=== PATIENT | female | born 1980 | race Caucasian/White ===

== ENCOUNTER 2017-07-10 11:52 | Emergency (ER) | payer SELFPAY ==
[~2017-07-10] VITALS: Ht 165.1 cm; Wt 113.4 kg
--- NOTE | 2017-07-10 12:33 | ED General ---
General Chief Complaint: General Problems/Pain Stated Complaint: RETAINING FLUID Source of Information: Patient Exam Limitations: No Limitations History of Present Illness Time Seen by Provider: 12:31 Initial Comments To ER with reports of "retaining fluid" and diffuse body pain. She's noticed this for the past 2-3 days. She recently moved here from [place] and is residing [facility]. She denies any known cause. Timing/Duration: 2-3 Days Severity: Moderate Allergies and Home Medications Allergies Coded Allergies: No Known Drug Allergies (Unverified , 07/10/17) Home Medications Hydrochlorothiazide 25 Mg Tablet, 25 MG PO DAILY, #25 Prescribed by: AVEL CABRERA on 07/10/17 1348 Constitutional: see HPI EENTM: see HPI Respiratory: no symptoms reported Cardiovascular: no symptoms reported Genitourinary: no symptoms reported Musculoskeletal: no symptoms reported Skin: no symptoms reported Psychiatric/Neurological: No Symptoms Reported Hematologic/Lymphatic: No Symptoms Reported Past Jnzyswx-Caryxi-Lrspuk Hx Patient Social History Recent Foreign Travel: No Contact w/Someone Who Travel: No Physical Exam Vital Signs Vital Sign - Last 12Hours 07/10/17 12:10 Temp 97.3 Pulse 70 Resp 16 B/P (MAP) 149/111 Pulse Ox 99 O2 Delivery Room Air Capillary Refill : General Appearance: No Apparent Distress, WD/WN Eyes: Bilateral Eye Normal Inspection, Bilateral Eye PERRL HEENT: PERRL/EOMI, TMs Normal, Normal ENT Inspection Neck: Full Range of Motion, Normal Inspection Respiratory: No Accessory Muscle Use, No Respiratory Distress Cardiovascular: Regular Rate, Rhythm, Normal Peripheral Pulses Gastrointestinal: Normal Bowel Sounds, Soft Extremity: Normal Capillary Refill, Normal Inspection Neurologic/Psychiatric: Alert, Oriented x3, No Motor/Sensory Deficits Skin: Normal Color, Warm/Dry Comments She reports diffuse swelling but I do not appreciate any swelling anywhere. There is no pitting edema. Progress/Results/Core Measures Suspected Sepsis SIRS Temperature: Pulse: Respiratory Rate: Laboratory Tests 07/10/17 12:54: White Blood Count 11.8H Blood Pressure / Mean: Laboratory Tests 07/10/17 12:54: Creatinine 0.65, Platelet Count 332, Total Bilirubin 0.4 Results/Orders Lab Results Laboratory Tests Test 07/10/17 12:50 07/10/17 12:54 Range/Units Urine Color YELLOW Urine Clarity CLEAR Urine pH 7 5-9 Urine Specific [place] 1.005 L 1.016-1.022 Urine Protein NEGATIVE NEGATIVE Urine Glucose (UA) NEGATIVE NEGATIVE Urine Ketones NEGATIVE NEGATIVE Urine Nitrite NEGATIVE NEGATIVE Urine Bilirubin NEGATIVE NEGATIVE Urine Urobilinogen NORMAL NORMAL MG/DL Urine Leukocyte Esterase NEGATIVE NEGATIVE Urine RBC (Auto) NEGATIVE NEGATIVE Urine RBC NONE /HPF Urine WBC NONE /HPF Urine Squamous Epithelial Cells 10-25 H /HPF Urine Crystals NONE /LPF Urine Bacteria NEGATIVE /HPF Urine Casts NONE /LPF Urine Mucus NEGATIVE /LPF Urine Culture Indicated NO Urine Opiates Screen NEGATIVE NEGATIVE Urine Oxycodone Screen NEGATIVE NEGATIVE Urine Methadone Screen NEGATIVE NEGATIVE Urine Propoxyphene Screen NEGATIVE NEGATIVE Urine Barbiturates Screen NEGATIVE NEGATIVE Ur Tricyclic Antidepressants Screen NEGATIVE NEGATIVE Urine Phencyclidine Screen NEGATIVE NEGATIVE Urine Amphetamines Screen NEGATIVE NEGATIVE Urine Methamphetamines Screen NEGATIVE NEGATIVE Urine Benzodiazepines Screen NEGATIVE NEGATIVE Urine Cocaine Screen NEGATIVE NEGATIVE Urine Cannabinoids Screen NEGATIVE NEGATIVE White Blood Count 11.8 H 4.3-11.0 10^3/uL Red Blood Count 4.43 4.35-5.85 10^6/uL Hemoglobin 13.2 11.5-16.0 G/DL Hematocrit 39 35-52 % Mean Corpuscular Volume 88 80-99 FL Mean Corpuscular Hemoglobin 30 25-34 PG Mean Corpuscular Hemoglobin Concent 34 32-36 G/DL Red Cell Distribution Width 13.8 10.0-14.5 % Platelet Count 332 130-400 10^3/uL Mean Platelet Volume 9.0 7.4-10.4 FL Neutrophils (%) (Auto) 58 42-75 % Lymphocytes (%) (Auto) 33 12-44 % Monocytes (%) (Auto) 8 0-12 % Eosinophils (%) (Auto) 1 0-10 % Basophils (%) (Auto) 0 0-10 % Neutrophils # (Auto) 6.8 1.8-7.8 X 10^3 Lymphocytes # (Auto) 3.9 1.0-4.0 X 10^3 Monocytes # (Auto) 1.0 0.0-1.0 X 10^3 Eosinophils # (Auto) 0.1 0.0-0.3 10^3/uL Basophils # (Auto) 0.0 0.0-0.1 10^3/uL Sodium Level 138 135-145 MMOL/L Potassium Level 4.0 3.6-5.0 MMOL/L Chloride Level 99 98-107 MMOL/L Carbon Dioxide Level 31 21-32 MMOL/L Anion Gap 8 5-14 MMOL/L Blood Urea Nitrogen 17 7-18 MG/DL Creatinine 0.65 0.60-1.30 MG/DL Estimat Glomerular Filtration Rate > 60 BUN/Creatinine Ratio 26 Glucose Level 87 70-105 MG/DL Calcium Level 8.9 8.5-10.1 MG/DL Total Bilirubin 0.4 0.1-1.0 MG/DL Aspartate Amino Transf (AST/SGOT) 29 5-34 U/L Alanine Aminotransferase (ALT/SGPT) 35 0-55 U/L Alkaline Phosphatase 68 40-136 U/L B-Type Natriuretic Peptide 73.6 <100.0 PG/ML Total Protein 6.8 6.4-8.2 GM/DL Albumin 3.8 3.2-4.5 GM/DL Thyroid Stimulating Hormone (TSH) 1.07 0.35-4.94 UIU/ML Free Thyroxine 1.01 0.70-1.48 NG/DL My Orders Orders - AVEL CABRERA APRN Cbc With Automated Diff (07/10/17 12:30) Comprehensive Metabolic Panel (07/10/17 12:30) Thyroid Stimulating Hormone (07/10/17 12:30) Free T4 (Free Thyroxine) (07/10/17 12:30) Ua Culture If Indicated (07/10/17 12:30) Urine Bedside (07/10/17 12:30) Drug Screen Stat (Urine) (07/10/17 12:30) Chest Pa/Lat (2 View) (07/10/17 12:30) BNP (07/10/17 12:30) Ibuprofen Tablet (Motrin Tablet) (07/10/17 14:15) Acetaminophen Tablet (Tylenol Tablet) (07/10/17 14:15) Vital Signs/I&O Vital Sign - Last 12Hours 07/10/17 12:10 Temp 97.3 Pulse 70 Resp 16 B/P (MAP) 149/111 Pulse Ox 99 O2 Delivery Room Air Capillary Refill : Departure Impression Impression: Primary Impression: Hypertension Disposition: 01 HOME, SELF-CARE Condition: Stable Departure-Patient Inst. Decision time for Depature: 13:48 Referrals: NO,LOCAL PHYSICIAN (PCP/Family) Primary Care Physician Patient Instructions: NO INSTRUCTIONS GIVEN Add. Discharge Instructions: 1. Return to ER for any concerns 2. Follow-up with your doctor next week 3. All discharge instructions reviewed with patient and/or family. Voiced understanding. Scripts Hydrochlorothiazide (Hydrochlorothiazide) 25 Mg Tablet 25 MG PO DAILY, #25 TAB Prov: AVEL CABRERA APRN 07/10/17 AVEL CABRERA APRN Jul 10, 2017 12:33
[2017-07-10 13:10] LABS: BASOPHILS % (AUTO) 0 % (0-10); EOSINOPHILS # (AUTO) 0.1 10^3/uL (0.0-0.3); EOSINOPHILS % (AUTO) 1 % (0-10); LYMPHOCYTES # (AUTO) 3.9 X 10^3 (1.0-4.0); LYMPHOCYTES % (AUTO) 33 % (12-44); MEAN CORPUSCULAR HEMOGLOBIN 30 PG (25-34); MEAN CORPUSCULAR HGB CONC 34 G/DL (32-36); MEAN CORPUSCULAR VOLUME 88 FL (80-99); MONOCYTES % (AUTO) 8 % (0-12); NEUTROPHILS # (AUTO) 6.8 X 10^3 (1.8-7.8); NEUTROPHILS % (AUTO) 58 % (42-75); PLATELET COUNT 332 10^3/uL (130-400); RED BLOOD COUNT 4.43 10^6/uL (4.35-5.85); RED CELL DISTRIBUTION WIDTH 13.8 % (10.0-14.5); WHITE BLOOD COUNT 11.8 10^3/uL (4.3-11.0)
[2017-07-10 13:12] LABS: BILIRUBIN,URINE NEGATIVE (NEGATIVE); KETONES,URINE NEGATIVE (NEGATIVE); LEUKOCYTE ESTERASE ,URINE NEGATIVE (NEGATIVE); NITRITE,URINE NEGATIVE (NEGATIVE); PH,URINE 7 (5-9); PROTEIN,URINE NEGATIVE (NEGATIVE); UROBILINOGEN,URINE NORMAL (NORMAL)
--- NOTE | 2017-07-10 13:31 | Diagnostic Imaging Report ---
PA and lateral views of the chest. INDICATION: Pain. FINDINGS: The lungs are clear. The heart size is normal. There is no effusion or pneumothorax. The mediastinum and bella appear unremarkable. IMPRESSION: Unremarkable exam. Dictated by: Dictated on workstation # [id number]
[2017-07-10 13:32] LABS: ALANINE AMINOTRANSFERASE 35 U/L (0-55); ALBUMIN 3.8 GM/DL (3.2-4.5); ANION GAP 8 MMOL/L (5-14); ASPARTATE AMINO TRANSFERASE 29 U/L (5-34); BILIRUBIN,TOTAL 0.4 MG/DL (0.1-1.0); BLOOD UREA NITROGEN 17 MG/DL (7-18); BUN/CREATININE RATIO 26; CALCIUM 8.9 MG/DL (8.5-10.1); CARBON DIOXIDE 31 MMOL/L (21-32); CHLORIDE 99 MMOL/L (98-107); CREATININE SERUM 0.65 MG/DL (0.60-1.30); GFR ESTIMATED > 60; GLUCOSE 87 MG/DL (70-105); SODIUM 138 MMOL/L (135-145); TOTAL PROTEIN 6.8 GM/DL (6.4-8.2)
[2017-07-10] MEDS ORDERED: HYDR25TA4 PO (13:48)
[2017-07-10 13:53] LABS: THYROID STIMULATING HORMONE 1.07 UIU/ML (0.35-4.94)
[2017-07-10] MEDS ORDERED: IBUPROFEN 800 MG (MOTRIN) TAB PO ONE (14:15)
[2017-07-10] MEDS ORDERED: ACETAMINOPHEN 500 MG TAB (TYLENOL) PO ONE (14:15)
[2017-07-10 14:25] VITALS: BP 139/90
== END 2017-07-10 14:25 | disposition home or self-care (01) ==
LOC: ER 11:56
DX: I10 Essential (primary) hypertension (principal)
CPT/HCPCS: 36415; 71020; 80053; 80306; 81000; 83880; 84439; 84443; 84703; 85025; 99283

== ENCOUNTER 2017-09-01 15:38 | Emergency (ER) | payer MEDICAID, OTHER ==
[~2017-09-01] VITALS: Ht 162.6 cm; Wt 104.3 kg
[~2017-09-01 15:38] MED LIST: HYDR25TA4 PO
[2017-09-01] MEDS ORDERED: TRAZ-28 (17:26)
[2017-09-01] MEDS ORDERED: LISI-552 (17:26)
[2017-09-01] MEDS ORDERED: LURA40TA3 (17:26)
--- NOTE | 2017-09-01 18:00 | Diagnostic Imaging Report ---
INDICATION: Right ankle injury. EXAMINATION: Three views of the right ankle were obtained. FINDINGS: On the AP view, there is slight cortical interruption that could be an incomplete or nondisplaced fracture but this could not be confirmed on the other two views. IMPRESSION: Subtle irregularity of the distal fibula could represent a nondisplaced or incomplete fracture. Clinical correlation recommended. Dictated by: Dictated on workstation # [id number]
[2017-09-01] MEDS ORDERED: KETOROLAC 60 MG/2 ML VIAL IM STA (18:08)
[2017-09-01] MEDS ORDERED: NAPR-1071 PO (18:21)
--- NOTE | 2017-09-01 18:22 | ED Lower Extremity ---
General Chief Complaint: Lower Extremity Stated Complaint: FALL/R ANKLE INJ Nursing Triage Note: ARRIVED VIA WC TO ROOM 02. STATES SHE STEPPED OFF THE CURB AND INTO A HOLE CAUSING HER TO ROLL HER RIGHT ANKLE. STATES SHE HEARD A POP. Nursing Sepsis Screen: No Definite Risk Source: patient, family (son and daughter) Exam Limitations: no limitations History of Present Illness Date Seen by Provider: Sep 01, 2017 Time Seen by Provider: 18:05 Allergies and Home Medications Allergies Coded Allergies: No Known Drug Allergies (Unverified , 07/10/17) Home Medications Hydrochlorothiazide 25 Mg Tablet, 25 MG PO DAILY, #25 Prescribed by: AVEL CABRERA on 07/10/17 1348 Lisinopril 20 Mg Tablet, (Reported) Lurasidone HCl 40 Mg Tablet, (Reported) Trazodone HCl 50 Mg Tablet, (Reported) Past Zgoarrt-Nfvpim-Tgxvjp Hx Patient Social History Alcohol Use: Denies Use Recreational Drug Use: No Smoking Status: Current Everyday Smoker Recent Foreign Travel: No Contact w/Someone Who Travel: No Recent Infectious Disease Expo: No Recent Hopitalizations: No Surgeries History of Surgeries: Yes Surgeries: Section Respiratory History of Respiratory Disorde: No Cardiovascular History of Cardiac Disorders: Yes Cardiac Disorders: Hypertension Neurological History of Neurological Disord: No Genitourinary History of Genitourinary Disor: No Gastrointestinal History of Gastrointestinal Di: Yes Gastrointestinal Disorders: Chronic Constipation, Irritable Bowel Musculoskeletal History of Musculoskeletal Dis: Yes (SCIATICA) HEENT History of HEENT Disorders: No Cancer History of Cancer: No Psychosocial History of Psychiatric Problem: Yes Behavioral Health Disorders: Depression Integumentary History of Skin or Integumenta: No Physical Exam Vital Signs Vital Sign - Last 12Hours 09/01/17 17:06 Temp 97.9 Pulse 85 Resp 18 B/P (MAP) 144/94 (111) Pulse Ox 99 Capillary Refill : Less Than 3 Seconds Progress/Results/Core Measures Results/Orders My Orders Orders - RODOLFO GOMEZ Ankle, Right, 3 Views (09/01/17 17:01) Ketorolac Injection (Toradol Injection) (09/01/17 18:08) Vital Signs/I&O Vital Sign - Last 12Hours 09/01/17 17:06 Temp 97.9 Pulse 85 Resp 18 B/P (MAP) 144/94 (111) Pulse Ox 99 Blood Pressure Mean: 111 Departure Impression Impression: Primary Impression: Right ankle sprain Disposition: 01 HOME, SELF-CARE Condition: Improved Departure-Patient Inst. Decision time for Depature: 18:20 Referrals: JOHNY JOHNSON MD (PCP/Family) Primary Care Physician Patient Instructions: Ankle Sprain (DC) Add. Discharge Instructions: All discharge instructions reviewed with patient and/or family. Voiced understanding. Medications as instructed. Tylenol extra strength over-the- counter as directed for pain. Elevate the right foot on pillows, ice over 20 minute intervals as needed for pain. Trey wrap as instructed. Activity as tolerated. If needed you may use crutches to help with walking. Follow-up with [facility] if no improvement in symptoms in 7-10 days for possible need of repeat x-ray or MRI of the ankle. Return in the emergency department for worsened symptoms or any other concerns. Scripts Naproxen (Naprosyn) 500 Mg Tablet 500 MG PO BID Y for pain, #20 TAB 0 Refills Prov: RODOLFO GOMEZ 09/01/17 RODOLFO GOMEZ Sep 01, 2017 18:22
[2017-09-01 18:30] VITALS: BP 144/94
[2017-09-02] MEDS ORDERED: HYDR-757 PO (13:06)
== END 2017-09-01 18:30 | disposition home or self-care (01) ==
LOC: EDUNIT# 15:38 → ER 15:39
DX: S93.401A Sprain of unspecified ligament of right ankle, initial encounter (principal); I10 Essential (primary) hypertension; F32.9 Major depressive disorder, single episode, unspecified; F17.200 Nicotine dependence, unspecified, uncomplicated; Z87.59 Personal history of other complications of pregnancy, childbirth and the puerperium; W17.2XXA Fall into hole, initial encounter
CPT/HCPCS: 73610; 96372; 99284

== ENCOUNTER 2017-09-02 12:46 | Emergency (ER) | payer MEDICAID ==
[~2017-09-02] VITALS: Ht 162.6 cm; Wt 104.3 kg
[~2017-09-02 12:46] MED LIST changes: +LISI-552; +LURA40TA3; +NAPR-1071 PO; +TRAZ-28
--- NOTE | 2017-09-02 13:03 | ED Lower Extremity ---
General Chief Complaint: Lower Extremity Stated Complaint: R ANKLE INJ Nursing Triage Note: patient reports being evaluated here yesterday for ankle injury. patient reports that medication that was given for pain hasn't helped with her pain Nursing Sepsis Screen: No Definite Risk Source: patient Exam Limitations: no limitations History of Present Illness Date Seen by Provider: Sep 02, 2017 Time Seen by Provider: 13:00 Initial Comments To ER with severe right ankle pain. She was seen here yesterday for this and diagnosed with an ankle sprain. She arrives today with crutches, Trey wrap and gel ankle brace. She states the swelling is better but the pain is intolerable. [facility] is [facility] [place]. Onset: yesterday Severity: moderate Pain/Injury Location: right ankle Method of Injury: fell Modifying Factors: Worse With Movement Allergies and Home Medications Allergies Coded Allergies: No Known Drug Allergies (Unverified , 07/10/17) Home Medications Hydrochlorothiazide 25 Mg Tablet, 25 MG PO DAILY, #25 Prescribed by: AVEL CABRERA on 07/10/17 1348 Hydrocodone/Acetaminophen 1 Each Tablet, 1 EACH PO Q4H PRN for PAIN-SEVERE, #14 Prescribed by: AVEL CABRERA on 09/02/17 1306 Lisinopril 20 Mg Tablet, (Reported) Lurasidone HCl 40 Mg Tablet, (Reported) Naproxen 500 Mg Tablet, 500 MG PO BID PRN for pain, #20 Ref 0 Prescribed by: RODOLFO GOMEZ on 09/01/17 1821 Trazodone HCl 50 Mg Tablet, (Reported) Constitutional: see HPI EENTM: see HPI Respiratory: no symptoms reported Cardiovascular: no symptoms reported Genitourinary: no symptoms reported Musculoskeletal: see HPI Skin: no symptoms reported Psychiatric/Neurological: No Symptoms Reported Past Dwtfkde-Pqkvhn-Fanemp Hx Patient Social History Alcohol Use: Occasionally Uses Recreational Drug Use: No Recent Foreign Travel: No Contact w/Someone Who Travel: No Recent Infectious Disease Expo: No Recent Hopitalizations: No Physical Abuse: No Sexual Abuse: No Surgeries History of Surgeries: Yes Surgeries: Section Respiratory History of Respiratory Disorde: No Cardiovascular History of Cardiac Disorders: Yes Cardiac Disorders: Hypertension Neurological History of Neurological Disord: No Genitourinary History of Genitourinary Disor: No Gastrointestinal History of Gastrointestinal Di: Yes Gastrointestinal Disorders: Chronic Constipation, Irritable Bowel Musculoskeletal History of Musculoskeletal Dis: Yes (SCIATICA) HEENT History of HEENT Disorders: No Cancer History of Cancer: No Psychosocial History of Psychiatric Problem: Yes Behavioral Health Disorders: Depression Suicide Risk Score: 0 Integumentary History of Skin or Integumenta: No Physical Exam Vital Signs Vital Sign - Last 12Hours 09/02/17 12:51 Pulse 124 Resp 18 B/P (MAP) 142/68 (92) Pulse Ox 99 Capillary Refill : Less Than 3 Seconds General Appearance: WD/WN, no apparent distress HEENT: PERRL/EOMI, normal ENT inspection Neck: non-tender, full range of motion Respiratory: no respiratory distress, no accessory muscle use Hips: bilateral hip non-tender, bilateral hip normal inspection, bilateral hip normal range of motion Legs: bilateral leg non-tender, bilateral leg normal inspection, bilateral leg normal range of motion Knees: bilateral knee non-tender, bilateral knee normal inspection, bilateral knee normal range of motion Ankles: right ankle other (there is some swelling to the right ankle mostly over the lateral malleolus. Capillary refill of the toes is brisk at 2 seconds she is able to wiggle her toes. No pain to palpation over the proximal aspect of the lateral compartment to suggest compartment syndrome.) Feet: bilateral foot non-tender, bilateral foot normal inspection, bilateral foot normal range of motion Neurologic/Psychiatric: alert, normal mood/affect, oriented x 3 Skin: normal color, warm/dry Progress/Results/Core Measures Results/Orders Vital Signs/I&O Vital Sign - Last 12Hours 09/02/17 12:51 Pulse 124 Resp 18 B/P (MAP) 142/68 (92) Pulse Ox 99 Blood Pressure Mean: 92 Departure Communication (Admissions) Progress Notes Trey wrap and gel ankle brace was removed and replaced with a posterior short- leg splint. Impression Impression: Primary Impression: Fibula fracture Disposition: 01 HOME, SELF-CARE Condition: Stable Departure-Patient Inst. Decision time for Depature: 13:02 Referrals: RAYA ERAZO MD,JOHNY Naranjo MD (PCP/Family) Primary Care Physician JOSE A FOSTER,PHILIPP NAQVI,ANUPAM SELLERS,SHERIF CHAUDHRY,NATHAN RAMSAY,HEIDI Julien MD Patient Instructions: Ankle Sprain (DC) Add. Discharge Instructions: 1. Return to ER for any concerns 2. Continue to elevate the leg 3. Tylenol and Motrin for pain. Many studies show that Tylenol and Motrin combined are as efficient as opiates. However, if your pain is intolerable take one hydrocodone every 4 hours as needed for severe pain. Once the hydrocodone prescription runs out then you should switch to Tylenol and Motrin. Call an orthopedic surgeon of your choosing on Monday to make an appointment to be seen. Leave the splint on at all times until you follow-up with orthopedics. Scripts Hydrocodone/Acetaminophen ([place] 5-325 Tablet) 1 Each Tablet 1 EACH PO Q4H Y for PAIN-SEVERE, #14 TAB Prov: AVEL CABRERA APRN 09/02/17 AVEL CABRERA APRN Sep 02, 2017 13:03
[2017-09-02] MEDS ORDERED: HYDR-757 PO (13:06)
[2017-09-02 13:35] VITALS: BP 142/68
== END 2017-09-02 13:35 | disposition home or self-care (01) ==
LOC: EDUNIT# 12:46 → ER 12:47
DX: S82.401A Unspecified fracture of shaft of right fibula, initial encounter for closed fracture (principal); F32.9 Major depressive disorder, single episode, unspecified; I10 Essential (primary) hypertension; Z87.19 Personal history of other diseases of the digestive system; Z87.59 Personal history of other complications of pregnancy, childbirth and the puerperium; W19.XXXA Unspecified fall, initial encounter
CPT/HCPCS: 29515

== ENCOUNTER → 2018-01-16 | Outpatient (CLI) | payer MEDICAID ==
[~2018-01-16] MED LIST changes: +HYDR-757 PO
--- NOTE | 2018-01-16 10:02 | Diagnostic Imaging Report ---
PROCEDURE: MRI right joint lower extremity without contrast. TECHNIQUE: Multiplanar, multisequence non contrast-enhanced MRI of the right lower extremity was accomplished. INDICATION: Lateral pain and swelling of the right ankle. COMPARISONS: Ankle radiographs of 09/01/2017. FINDINGS: TENDONS: The Achilles tendon is normal. Fluid within the common peroneal tendon sheath is present both above and below the lateral malleolus. Short segment partial-thickness split longitudinal tear of the peroneus brevis in the inframalleolar region. The distal insertion of the peroneus brevis on the base of fifth metatarsal is intact. Peroneus longus is normal where seen. Posterior tibialis, flexor digitorum longus and flexor hallucis longus are normal. The anterior tibialis, extensor hallucis longus and extensor digitorum longus are normal where visualized. LIGAMENTS: The medial and lateral distal tibiofibular ligaments are intact. The anterior talofibular ligament is ill-defined and torn. Calcaneofibular ligament is also ill-defined and likely torn. Posterior talofibular ligament is normal. The medial deltoid ligamentous complex is intact. BONES AND CARTILAGE: No osteochondral lesion of the talar dome. No fracture or stress fracture. Multiple foci of red marrow are seen around the ankle which can be seen with recent immobilization. The articular cartilage of the tibiotalar and posterior subtalar joints are normal. SOFT TISSUES: No evidence of plantar fasciitis. No abnormal soft tissue scar/fibrosis within the tarsal canal/sinus tarsi or tarsal tunnel. No ankle joint effusion. A small amount of subcutaneous edema is present around the ankle. IMPRESSION: 1. Complete tear of the anterior talofibular and calcaneofibular ligaments. 2. Short segment partial-thickness split longitudinal tear of the peroneus brevis in inframalleolar region. Associated tenosynovitis of the common peroneal tendon sheath. 3. No fracture or stress fracture. Dictated by: Dictated on workstation # [id number]
== END ==
LOC: RAD 08:00
PROVIDERS: ATTEND Nurse Practitioner
DX: S93.491A Sprain of other ligament of right ankle, initial encounter (principal); S93.411A Sprain of calcaneofibular ligament of right ankle, initial encounter; S96.911A Strain of unspecified muscle and tendon at ankle and foot level, right foot, initial encounter; M65.871 Other synovitis and tenosynovitis, right ankle and foot; M76.71 Peroneal tendinitis, right leg
CPT/HCPCS: 73721

== ENCOUNTER 2018-07-10 13:11 | Emergency (ER) | payer MEDICAID ==
[~2018-07-10] VITALS: Ht 162.6 cm; Wt 108.9 kg
[~2018-07-10 13:11] MED LIST changes: +AMOX500T2 PO; +HYDR-4226 PO; -HYDR-757 PO; +NAPR-915 PO; +TRAZ-189; -TRAZ-28
--- OUTSIDE RECORDS SUMMARY | 2018-07-10 13:27 | XMS REPORT ---
Author Author JOHNY JOHNSON Organization [facility] Address [address] [place] [address] Care Team Providers Care Processing Assistant Name Role Phone JOHNY JOHNSON Unavailable PROBLEMS Type Condition ICD9-CM Code [id number] Code Onset Dates Condition Status SNOMED Code Problem Mild HTN I10 Active 92038074 Problem PTSD (post-traumatic stress disorder) F43.10 Active 09479156 Problem Anxiety F41.9 Active 04002812 Problem Back pain of lumbar region with sciatica M54.40 Active 008548976 Problem Closed fracture of right ankle with routine healing, subsequent encounter S82.891D Active 83207423 Problem Sciatica of left side M54.32 Active 10778864 Problem Bipolar affective disorder, current episode hypomanic F31.0 Active 80734604 Problem Bipolar II disorder, moderate, depressed, with anxious distress F31.81 Active 39946679 Problem BMI 40.0-44.9, adult Z68.41 Active 429040830 Problem Essential hypertension I10 Active 49210577 ALLERGIES No Information ENCOUNTERS Encounter Location Date Diagnosis [facility] [id number] [place] [address] 87870- 2125 Jul, [facility] [id number] [place] [address] 16866- 9283 Jun, [facility] [id number] [place] [address] 73303- 2148 Jun, Hair loss L65.9 [facility] [address] 92457- 4235 12 Jun, 2018 Hair loss L65.9 [facility] [id number] [place] [address] 96128- 9858 05 Jun, 2018 [facility] [address] 97864 -9476 Jun, BMI 45.0-49.9, adult Z68.42 ; Viral illness B34.9 and Pain R52 [place] [address] 38511- 8589 May, Other injury of muscle(s) and tendon(s) of peroneal muscle group at lower leg level, right leg, initial encounter S86.391A [place] [address] 24776- 3354 May, Bipolar affective disorder, current episode hypomanic F31.0 and Anxiety F41.9 [place] [address] 80954- 1431 May, [place] [address] 49945- 8552 May, Essential hypertension I10 ; Swelling of lower extremity M79.89 and Peripheral edema R60.9 [place] [address] 02770- 0876 May, BMI 45.0-49.9, adult Z68.42 [place] [address] 52136- 8120 26 Apr, 2018 BMI 45.0-49.9, adult Z68.42 ; Peripheral edema R60.9 and Right ankle pain, unspecified chronicity M25.571 [facility] [id number] [place] [address] 45109 -0118 Apr, Skin infection L08.9 and BMI 40.0-44.9, adult Z68.41 [place] [address] 69262- 2108 Feb, [place] [address] 07669- 4339 Feb, [facility] [id number] [place] [address] 96509 -0814 Jan, Back pain of lumbar region with sciatica M54.40 and BMI 45.0-49.9, adult Z68.42 [facility] [address], [place] [address] 3[address] Jan, [facility] [id number] [address] 8471 Jan, Closed fracture of right ankle with routine healing, subsequent encounter S82.891D [facility] [id number] [place] [address] 91030- 3853 Jan, [facility] [id number] [address] 6101 Jan, [facility] [id number] [place] [address] 98320- 8857 December, Closed fracture of right ankle with routine healing, subsequent encounter S82.891D [facility] [id number] [place] [address] 05617- 0312 December, Tendinitis of right peroneus longus tendon M76.71 [facility] [id number] [place] [address] 50239- 0187 December, [facility] [id number] [place] [address] 27751- 7600 December, Closed fracture of right ankle with routine healing, subsequent encounter S82.891D [facility] [address], [place] [address] 6837 December, [facility] [address], [place] [address] 3991 December, [facility] [id number] [place] [address] 19135- 6692 December, History of fracture of right ankle Z87.81 [facility] [address], [place] [address] 2255 December, History of fracture of right ankle Z87.81 [facility] [id number] [place] [address] 32081- 3525 Nov, Other closed fracture of distal end of right fibula with routine healing, subsequent encounter S82.831D and BMI 40.0-44.9, adult Z68.41 [facility] [id number] [place] [address] 55194 -8794 Oct, Sciatica of left side M54.32 [facility] [address] 80530- 1179 Oct, [place] [address] 92980- 8392 Oct, Bipolar affective disorder, current episode hypomanic F31.0 [place] [id number] [place] [address] 35146- 7306 Oct, [place] [address] 45606- 1606 Oct, PTSD (post-traumatic stress disorder) F43.10 ; Anxiety F41.9 and Bipolar II disorder, moderate, depressed, with anxious distress F31.81 [place] [address] 16435- 8264 Oct, Other closed fracture of distal end of right fibula with routine healing, subsequent encounter S82.831D and BMI 40.0-44.9, adult Z68.41 [facility] [id number] [place] [address] 28966- 5900 Oct, Bipolar affective disorder, current episode hypomanic F31.0 [place] [id number] [place] [address] 42912- 7544 Sep, BMI 40.0-44.9, adult Z68.41 ; Essential hypertension I10 and Other closed fracture of distal end of right fibula with routine healing, subsequent encounter S82.831D [place] [id number] [place] [address] 10360- 9233 Aug, Bipolar II disorder, moderate, depressed, with anxious distress F31.81 [place] [id number] [place] [address] 54813- 2974 Aug, Bipolar II disorder, moderate, depressed, with anxious distress F31.81 and BMI 40.0-44.9, adult Z68.41 [place] [id number] [place] [address] 66457- 6932 Aug, Other closed fracture of distal end of right fibula, initial encounter S82.831A [place] [id number] [place] [address] 14653- 2010 Aug, Bipolar II disorder, moderate, depressed, with anxious distress F31.81 and BMI 40.0-44.9, adult Z68.41 [place] [id number] [place] [address] 03303- 5975 Aug, [place] [address] 47703- 8857 Aug, [place] [id number] [place] [address] 16293- 3924 Aug, [place] [address] 43002- 6607 Aug, BMI 40.0-44.9, adult Z68.41 [place] [id number] [place] [address] 45051- 9690 Aug, Anxiety F41.9 ; PTSD (post-traumatic stress disorder) F43.10 and Bipolar II disorder, moderate, depressed, with anxious distress F31.81 [place] [id number] [place] [address] 14454- 3331 11 Aug, 2017 Dental examination Z01.20 [place] [id number] [place] [address] 59918- 3722 09 Aug, 2017 BMI 40.0-44.9, adult Z68.41 ; Back pain of lumbar region with sciatica M54.40 ; Mild HTN I10 ; Anxiety F41.9 ; Screening for diabetes mellitus (DM) Z13.1 and Screening for lipid disorders Z13.220 [place] [id number] [place] [address] 46715- 454 Aug, Anxiety F41.9 ; PTSD (post-traumatic stress disorder) F43.10 and Bipolar II disorder, moderate, depressed, with anxious distress F31.81 [place] [address] 932767- 0141 Aug, Bipolar II disorder, moderate, depressed, with anxious distress F31.81 and BMI 40.0-44.9, adult Z68.41 [place] [address] [place] [address]- 6640 Jul, [place] [address] 974104- 615 Jul, [place] [address] 942295- 7784 Jul, Bipolar II disorder, moderate, depressed, with anxious distress F31.81 ; PTSD (post-traumatic stress disorder) F43.10 and Anxiety F41.9 [place] [address] 928185- 4209 Jul, Bipolar II disorder, moderate, depressed, with anxious distress F31.81 [place] [id number] [place] [address] 49808- 0996 Jul, Bipolar II disorder, moderate, depressed, with anxious distress F31.81 and PTSD (post-traumatic stress disorder) F43.10 [place] [id number] [place] [address] 43203- 0412 Jul, Bipolar II disorder, moderate, depressed, with anxious distress F31.81 [place] [id number] [place] [address] 99496- 5851 Jul, Bipolar II disorder, moderate, depressed, with anxious distress F31.81 ; PTSD (post-traumatic stress disorder) F43.10 and Anxiety F41.9 [facility] [address] [facility] [id number] [address] Jul, Mild HTN I10 ; Pedal edema R60.0 and BMI 40.0-44.9, adult Z68.41 [facility] [address] [facility] [id number] [address] Jun, Back pain of lumbar region with sciatica M54.40 [facility] [id number] [address] Jun, Acute nasopharyngitis (common cold) J00 IMMUNIZATIONS No Known Immunizations SOCIAL HISTORY Never Assessed REASON FOR VISIT Lab (walk-in) PLAN OF CARE Activity Details Pending Test TSH VITAL SIGNS MEDICATIONS Unknown Medications RESULTS Name Result Date Reference Range ESR/SED RATE (IN HOUSE) 2018-07-03 SED/ESR RATE 17 mm/hr Lot # [id number] Exp Date 13 Sep 2018 0 - 20 mm PROCEDURES Procedure Date Ordered Result Body Site RBC SED RATE, NONAUTOMATED Jul 03, 2018 LAB NOT BILLED BY [facility] Jul 03, 2018 INSTRUCTIONS MEDICATIONS ADMINISTERED No Known Medications MEDICAL (GENERAL) HISTORY Type Description Date Medical History sciatica Medical History fluid retention, elevated blood pressure Medical History broken ankle Surgical History tubal ligation Surgical History colonoscopy 23 y/o Surgical History 3 c-sections Surgical History surgery for c-seciton complication 1x, abdomnial wound Surgical History surgery for torn ligament in rt ankle 03/20/18 Hospitalization History Psychiatric inpatient treatment multiple times in teenage years, last one age 19 Hospitalization History surgeries,
--- OUTSIDE RECORDS SUMMARY | 2018-07-10 13:28 | XMS REPORT ---
Author Author JOHNY JOHNSON Organization [facility] Address [address] [place] [address] Care Team Providers Care Monomer Recovery Supervisor Name Role Phone JOHNY JOHNSON Unavailable PROBLEMS Type Condition ICD9-CM Code GYM93-WT Code Onset Dates Condition Status SNOMED Code Problem Mild HTN I10 Active 14432029 Problem PTSD (post-traumatic stress disorder) F43.10 Active 95565390 Problem Anxiety F41.9 Active 91892925 Problem Back pain of lumbar region with sciatica M54.40 Active 893835818 Problem Closed fracture of right ankle with routine healing, subsequent encounter S82.891D Active 83251653 Problem Sciatica of left side M54.32 Active 62269083 Problem Bipolar affective disorder, current episode hypomanic F31.0 Active 54668388 Problem Bipolar II disorder, moderate, depressed, with anxious distress F31.81 Active 09984930 Problem BMI 40.0-44.9, adult Z68.41 Active 618277882 Problem Essential hypertension I10 Active 27004677 ALLERGIES No Information ENCOUNTERS Encounter Location Date Diagnosis [facility] [id number] [place] [address] 77996- 9909 Jul, [facility] [id number] [place] [address] 62307- 4613 Jun, [facility] [id number] [place] [address] 83155- 0987 Jun, Hair loss L65.9 [facility] [address] 91647- 4738 Jun, [facility] [id number] [place] [address] 13928 -0588 Jun, BMI 45.0-49.9, adult Z68.42 ; Viral illness B34.9 and Pain R52 [place] [id number] [place] [address] 91632- 3550 May, Other injury of muscle(s) and tendon(s) of peroneal muscle group at lower leg level, right leg, initial encounter S86.391A [place] [id number] [place] [address] 64635- 3870 17 May, 2018 Bipolar affective disorder, current episode hypomanic F31.0 and Anxiety F41.9 [place] [address] 27795- 6357 May, [place] [address] 84937- 1656 May, Essential hypertension I10 ; Swelling of lower extremity M79.89 and Peripheral edema R60.9 [place] [address] 10383- 4995 May, BMI 45.0-49.9, adult Z68.42 [place] [id number] [place] [address] 68532- 7819 Apr, BMI 45.0-49.9, adult Z68.42 ; Peripheral edema R60.9 and Right ankle pain, unspecified chronicity M25.571 [facility] [place] [id number] [place] [address] 20855 -1903 Apr, Skin infection L08.9 and BMI 40.0-44.9, adult Z68.41 [place] [id number] [place] [address] 33054- 0756 Feb, [place] [address] 34154- 9448 Feb, [facility] [place] [id number] [place] [address] 02899 -6550 Jan, Back pain of lumbar region with sciatica M54.40 and BMI 45.0-49.9, adult Z68.42 [place] [address] [place] [address]- 7409 Jan, [facility] [address]26 Jan, Closed fracture of right ankle with routine healing, subsequent encounter S82.891D [facility] [address], [place] [address]- 7626 Jan, [facility] [address], [place] [address]- 4856 Jan, [facility] [address], [place] [address]- 7347 December, Closed fracture of right ankle with routine healing, subsequent encounter S82.891D [facility] [address], [place] [address]- 2356 December, Tendinitis of right peroneus longus tendon M76.71 [facility] [address], [place] [address]- 6806 December, [facility] [address], [place] [address]- 4945 December, Closed fracture of right ankle with routine healing, subsequent encounter S82.891D [facility] [address], [place] [address]- 9205 December, [facility] [address], [place] [address]- 3219 December, [facility] [id number], [place] [address]- 6330 December, History of fracture of right ankle Z87.81 [facility] [address]- 0486 December, History of fracture of right ankle Z87.81 [facility] [id number] 8216 Nov, Other closed fracture of distal end of right fibula with routine healing, subsequent encounter S82.831D and BMI 40.0-44.9, adult Z68.41 [facility] [address] [place] [address] 80106 -2493 Oct, Sciatica of left side M54.32 [facility] [address] [place] [address] 15776- 2099 Oct, [facility] [id number] [place] [address] 27978- 1664 Oct, Bipolar affective disorder, current episode hypomanic F31.0 [place] [id number] [place] [address] 02993- 8088 Oct, [facility] [id number] [place] [address] 90204- 2228 Oct, PTSD (post-traumatic stress disorder) F43.10 ; Anxiety F41.9 and Bipolar II disorder, moderate, depressed, with anxious distress F31.81 [place] [id number] [place] [address] 87421- 5685 Oct, Other closed fracture of distal end of right fibula with routine healing, subsequent encounter S82.831D and BMI 40.0-44.9, adult Z68.41 [facility] [address] [place] [address] 64112- 3538 Oct, Bipolar affective disorder, current episode hypomanic F31.0 [place] [address] [place] [address] 60540- 6191 Sep, BMI 40.0-44.9, adult Z68.41 ; Essential hypertension I10 and Other closed fracture of distal end of right fibula with routine healing, subsequent encounter S82.831D [place] [id number] [place] [address] 72023- 7342 Aug, Bipolar II disorder, moderate, depressed, with anxious distress F31.81 [place] [id number] [place] [address] 20404- 3779 Aug, Bipolar II disorder, moderate, depressed, with anxious distress F31.81 and BMI 40.0-44.9, adult Z68.41 [place] [address] 15480- 1591 Aug, Other closed fracture of distal end of right fibula, initial encounter S82.831A [place] [address] 90716- 0040 Aug, Bipolar II disorder, moderate, depressed, with anxious distress F31.81 and BMI 40.0-44.9, adult Z68.41 [place] [address] 30603- 7906 Aug, [place] [address] 07363- 1085 Aug, [place] [address] 72625- 4406 Aug, [place] [address] 70014- 6080 Aug, BMI 40.0-44.9, adult Z68.41 [place] [address] 36740- 0894 Aug, Anxiety F41.9 ; PTSD (post-traumatic stress disorder) F43.10 and Bipolar II disorder, moderate, depressed, with anxious distress F31.81 [place] [address] 18350- 4289 11 Aug, 2017 Dental examination Z01.20 [place] [address] 84647- 9165 09 Aug, 2017 BMI 40.0-44.9, adult Z68.41 ; Back pain of lumbar region with sciatica M54.40 ; Mild HTN I10 ; Anxiety F41.9 ; Screening for diabetes mellitus (DM) Z13.1 and Screening for lipid disorders Z13.220 [place] [address] 58390- 7073 Aug, Anxiety F41.9 ; PTSD (post-traumatic stress disorder) F43.10 and Bipolar II disorder, moderate, depressed, with anxious distress F31.81 [place] [id number] [place] [address]- 403 Aug, Bipolar II disorder, moderate, depressed, with anxious distress F31.81 and BMI 40.0-44.9, adult Z68.41 [place] [address] 501230- 7412 Jul, [place] [address] 611088- 905 Jul, [place] [address] 084264- 7962 Jul, Bipolar II disorder, moderate, depressed, with anxious distress F31.81 ; PTSD (post-traumatic stress disorder) F43.10 and Anxiety F41.9 [place] [id number] [place] [address] 38826- 8988 Jul, Bipolar II disorder, moderate, depressed, with anxious distress F31.81 [place] [id number] [place] [address] 726274- 8077 Jul, Bipolar II disorder, moderate, depressed, with anxious distress F31.81 and PTSD (post-traumatic stress disorder) F43.10 [place] [id number] [place] [address] 37029- 2193 Jul, Bipolar II disorder, moderate, depressed, with anxious distress F31.81 [place] [id number] [place] [address] 09304- 1660 Jul, Bipolar II disorder, moderate, depressed, with anxious distress F31.81 ; PTSD (post-traumatic stress disorder) F43.10 and Anxiety F41.9 [facility] [id number] [place] [address] 44467 -5029 Jul, Mild HTN I10 ; Pedal edema R60.0 and BMI 40.0-44.9, adult Z68.41 [facility] [address] [facility] [id number] [address] Jun, Back pain of lumbar region with sciatica M54.40 [facility] [address] [facility] [id number] [place] [address] Jun, Acute nasopharyngitis (common cold) J00 IMMUNIZATIONS No Known Immunizations SOCIAL HISTORY Never Assessed REASON FOR VISIT [facility] PLAN OF CARE VITAL SIGNS MEDICATIONS Medication Instructions Dosage Frequency Start Date End Date Duration Status Zofran ODT 4 MG Orally every 4 hrs 1 tablet on the tongue and allow to dissolve as needed 4h Jun, 5 days Active RESULTS No Results PROCEDURES No Known procedures INSTRUCTIONS MEDICATIONS ADMINISTERED No Known Medications MEDICAL [...]
--- OUTSIDE RECORDS SUMMARY | 2018-07-10 13:28 | XMS REPORT ---
Author Author JOHNY JOHNSON Organization [facility] [place] Address [address] [place] [address] Care Team Providers Care Internal Medicine Specialist Name Role Phone JOHNY JOHNSON Unavailable PROBLEMS Type Condition ICD9-CM Code ADB97-WU Code Onset Dates Condition Status SNOMED Code Problem Mild HTN I10 Active 35481078 Problem PTSD (post-traumatic stress disorder) F43.10 Active 42147392 Problem Anxiety F41.9 Active 42339023 Problem Back pain of lumbar region with sciatica M54.40 Active 969528171 Problem Closed fracture of right ankle with routine healing, subsequent encounter S82.891D Active 29837222 Problem Sciatica of left side M54.32 Active 74190651 Problem Bipolar affective disorder, current episode hypomanic F31.0 Active 30534490 Problem Bipolar II disorder, moderate, depressed, with anxious distress F31.81 Active 72086630 Problem BMI 40.0-44.9, adult Z68.41 Active 460464548 Problem Essential hypertension I10 Active 28991619 ALLERGIES No Information ENCOUNTERS Encounter Location Date Diagnosis [place] [address] [place] [id number] [place] [address] 52541- 7434 May, [place] [address] [id number] [place] [address] 17515- 5603 May, [place] [address] [id number] [place] [address] 31871- 3086 May, Essential hypertension I10 ; Swelling of lower extremity M79.89 and Peripheral edema R60.9 [place] [address] [id number] [place] [address] 67208- 3632 May, BMI 45.0-49.9, adult Z68.42 [place] [address] [id number] [place] [address] 67177- 6014 Apr, BMI 45.0-49.9, adult Z68.42 ; Peripheral edema R60.9 and Right ankle pain, unspecified chronicity M25.571 [facility] [id number] [place] [address] 68603 -5725 Apr, Skin infection L08.9 and BMI 40.0-44.9, adult Z68.41 [facility] [id number] [place] [address] 67798- 9049 Feb, [facility] [place] [id number] [place] [address] 07896- 4806 Feb, [facility] [id number] [place] [address] 02050 -3438 Jan, Back pain of lumbar region with sciatica M54.40 and BMI 45.0-49.9, adult Z68.42 [place] [address] [address] [id number] [place] [address] 53037- 4829 Jan, [facility] [place] [id number] [place] [address] 47993- 2729 Jan, Closed fracture of right ankle with routine healing, subsequent encounter S82.891D [place] [id number] [place] [address] 02265- 5434 Jan, [facility] [place] [id number] [place] [address] 86660- 6471 Jan, [facility] [place] [id number] [place] [address] 08149- 8651 December, Closed fracture of right ankle with routine healing, subsequent encounter S82.891D [place] [id number] [place] [address] 93761- 0295 December, Tendinitis of right peroneus longus tendon M76.71 [facility] [place] [id number] [place] [address] 93473- 9974 December, [facility] [place] [id number] [place] [address] 00431- 6675 December, Closed fracture of right ankle with routine healing, subsequent encounter S82.891D [facility] [place] [id number] [place] [address] 57452- 8833 December, [facility] [place] [id number] [place] [address] 52896- 6382 December, [place] [address] [id number] [place] [address] 40156- 1608 December, History of fracture of right ankle Z87.81 [place] [address] [id number] [place] [address] 34512- 5960 December, History of fracture of right ankle Z87.81 [place] [address] [id number] [place] [address] 48176- 9345 Nov, Other closed fracture of distal end of right fibula with routine healing, subsequent encounter S82.831D and BMI 40.0-44.9, adult Z68.41 [facility] [id number] [place] [address] 11389 -6887 Oct, Sciatica of left side M54.32 [place] [address] [id number] [place] [address] 60535- 4711 Oct, [place] [address] [id number] [place] [address] 63692- 8616 Oct, Bipolar affective disorder, current episode hypomanic F31.0 [place] [address] [id number] [place] [address] 87414- 5612 Oct, [facility] [place] [id number] [place] [address] 86863- 7969 Oct, PTSD (post-traumatic stress disorder) F43.10 ; Anxiety F41.9 and Bipolar II disorder, moderate, depressed, with anxious distress F31.81 [facility] [address] [place] [address] 20081- 9487 Oct, Other closed fracture of distal end of right fibula with routine healing, subsequent encounter S82.831D and BMI 40.0-44.9, adult Z68.41 [place] [address] [id number] [place] [address] 37137- 9774 Oct, Bipolar affective disorder, current episode hypomanic F31.0 [facility] [place] [id number] [place] [address] 07872- 2282 Sep, BMI 40.0-44.9, adult Z68.41 ; Essential hypertension I10 and Other closed fracture of distal end of right fibula with routine healing, subsequent encounter S82.831D [place] [address] 32676- 8449 Aug, Bipolar II disorder, moderate, depressed, with anxious distress F31.81 [place] [address] [id number] [place] [address] 28101- 1473 Aug, Bipolar II disorder, moderate, depressed, with anxious distress F31.81 and BMI 40.0-44.9, adult Z68.41 [place] [address] [place] [address] 47317- 5594 Aug, Other closed fracture of distal end of right fibula, initial encounter S82.831A [place] [address] [place] [address] 71733- 8160 Aug, Bipolar II disorder, moderate, depressed, with anxious distress F31.81 and BMI 40.0-44.9, adult Z68.41 [place] [address] [place] [address] 99274- 8656 Aug, [place] [id number] [place] [address] 93599- 0196 Aug, [facility] [id number] [place] [address] 13597- 8876 Aug, [facility] [id number] [place] [address] 10912- 2088 Aug, BMI 40.0-44.9, adult Z68.41 [place] [address] [id number] [place] [address] 21101- 7036 Aug, Anxiety F41.9 ; PTSD (post-traumatic stress disorder) F43.10 and Bipolar II disorder, moderate, depressed, with anxious distress F31.81 [place] [id number] [place] [address] 95363- 9817 11 Aug, 2017 Dental examination Z01.20 [place] [address] 48571- 4155 09 Aug, 2017 BMI 40.0-44.9, adult Z68.41 ; Back pain of lumbar region with sciatica M54.40 ; Mild HTN I10 ; Anxiety F41.9 ; Screening for diabetes mellitus (DM) Z13.1 and Screening for lipid disorders Z13.220 [place] [address] 65777- 8800 04 Aug, 2017 Anxiety F41.9 ; PTSD (post-traumatic stress disorder) F43.10 and Bipolar II disorder, moderate, depressed, with anxious distress F31.81 [place] [address] [id number] [place] [address] 73990- 2380 Aug, Bipolar II disorder, moderate, depressed, with anxious distress F31.81 and BMI 40.0-44.9, adult Z68.41 [place] [address] [id number] [place] [address] 69200- 9791 Jul, [place] [address] [id number] [place] [address] 17656- 3550 Jul, [place] [address] [id number] [place] [address] 61532- 5038 Jul, Bipolar II disorder, moderate, depressed, with anxious distress F31.81 ; PTSD (post-traumatic stress disorder) F43.10 and Anxiety F41.9 [place] [id number] [place] [address] 15233- 4959 Jul, Bipolar II disorder, moderate, depressed, with anxious distress F31.81 [place] [address] [place] [address] 46051- 9900 Jul, Bipolar II disorder, moderate, depressed, with anxious distress F31.81 and PTSD (post-traumatic stress disorder) F43.10 [place] [address] [id number] [place] [address] 06761- 1949 Jul, Bipolar II disorder, moderate, depressed, with anxious distress F31.81 [place] [address] [id number] [place] [address] 866954- 4955 Jul, Bipolar II disorder, moderate, depressed, with anxious distress F31.81 ; PTSD (post-traumatic stress disorder) F43.10 and Anxiety F41.9 [facility] [place] [id number] [place] [address] 80243 -8336 Jul, Mild HTN I10 ; Pedal edema R60.0 and BMI 40.0-44.9, adult Z68.41 [facility] [place] [id number] [place] [address] 50768 -2828 Jun, Back pain of lumbar region with sciatica M54.40 [facility] [place] [id number] [place] [address] 35298 -2930 07 Jun, 2017 Acute nasopharyngitis (common cold) J00 IMMUNIZATIONS No Known Immunizations SOCIAL HISTORY Never Assessed REASON FOR VISIT Blood pressure check. Pt c/o of swelling all over her body, tiredness, and having a hard time catching her breath sometimes.-[facility] PLAN OF CARE VITAL SIGNS Height 64 in 2018-05-24 Weight 271.8 lbs 2018-05-24 Heart Rate 96 bpm 2018-05-24 BMI 46.65 kg/m2 2018-05-24 Blood pressure systolic 110 mmHg 2018-05-24 Blood pressure diastolic 72 mmHg 2018-05-24 MEDICATIONS Medication Instructions Dosage Frequency Start Date End Date Duration Status Hydrochlorothiazide 12.5 MG Orally Once a day 1 tablet in the morning 24h Apr, 30 day(s) Active Ibuprofen 200 mg Orally every 6 hrs 3 tablet with food or milk as needed 6h Active Trazodone HCl 100 MG Orally at bedtime as needed for sleep 1-2 tablets 30 days Active RESULTS No Results PROCEDURES No [...]
--- OUTSIDE RECORDS SUMMARY | 2018-07-10 13:28 | XMS REPORT ---
Author Author JOHNY JOHNSON Organization [facility] Address [address] [place] [address] Care Team Providers Care Delivery Table Operator Name Role Phone JOHNY JOHNSON Unavailable PROBLEMS Type Condition ICD9-CM Code GJA95-FX Code Onset Dates Condition Status SNOMED Code Problem Mild HTN I10 Active 37284748 Problem PTSD (post-traumatic stress disorder) F43.10 Active 57437179 Problem Anxiety F41.9 Active 68870941 Problem Back pain of lumbar region with sciatica M54.40 Active 139346516 Problem Closed fracture of right ankle with routine healing, subsequent encounter S82.891D Active 10046641 Problem Sciatica of left side M54.32 Active 18697456 Problem Bipolar affective disorder, current episode hypomanic F31.0 Active 53066125 Problem Bipolar II disorder, moderate, depressed, with anxious distress F31.81 Active 84419017 Problem BMI 40.0-44.9, adult Z68.41 Active 754745972 Problem Essential hypertension I10 Active 58674206 ALLERGIES No Information ENCOUNTERS Encounter Location Date Diagnosis [facility] [address] [place] [address] 86968- 7204 Jul, [facility] [address] [place] [address] [id number] [place] [address] 04972- 1703 Jun, [facility] [address] [id number] [place] [address] 76458- 8266 Jun, [facility] [address] [id number] [place] [address] 41955- 3463 Jun, [facility] [id number] [place] [address] 31530 -6825 Jun, BMI 45.0-49.9, adult Z68.42 ; Viral illness B34.9 and Pain R52 [facility] [address] [id number] [place] [address] 48744- 4724 May, Other injury of muscle(s) and tendon(s) of peroneal muscle group at lower leg level, right leg, initial encounter S86.391A [place] [address] [id number] [place] [address] 86506- 5288 May, Bipolar affective disorder, current episode hypomanic F31.0 and Anxiety F41.9 [place] [address] 74043- 0533 May, [place] [address] 35761- 5068 May, Essential hypertension I10 ; Swelling of lower extremity M79.89 and Peripheral edema R60.[address] 15662- 0245 May, BMI 45.0-49.9, adult Z68.42 [place] [address] [address] [id number] [place] [address] 28185- 7223 Apr, BMI 45.0-49.9, adult Z68.42 ; Peripheral edema R60.9 and Right ankle pain, unspecified chronicity M25.571 [facility] [place] [id number] [place] [address] 49131 -4575 Apr, Skin infection L08.9 and BMI 40.0-44.9, adult Z68.41 [place] [address] [id number] [place] [address] 69251- 8841 Feb, [place] [address] 64639- 8315 Feb, [facility] [address] [place] [address] 32890 -3071 Jan, Back pain of lumbar region with sciatica M54.40 and BMI 45.0-49.9, adult Z68.42 [place] [address] 99074- 6004 Jan, [facility] [address] [address]- 5041 Jan, Closed fracture of right ankle with routine healing, subsequent encounter S82.891D [facility] [address]- 7896 Jan, [facility] [address] [address]- 6211 Jan, [facility] [address] [address]- 5293 December, Closed fracture of right ankle with routine healing, subsequent encounter S82.891D [place] [address] 6546 December, Tendinitis of right peroneus longus tendon M76.71 [facility] [address] [id number]- 4186 December, [facility] [address] [address]- 9716 December, Closed fracture of right ankle with routine healing, subsequent encounter S82.891D [facility] [address] [address]- 7336 December, [facility] [address] [address]- 6799 December, [facility] [address] [address]- 1634 December, History of fracture of right ankle Z87.81 [facility] [address]- 6026 December, History of fracture of right ankle Z87.81 [facility] [address] [place] [id number] 1278 Nov, Other closed fracture of distal end of right fibula with routine healing, subsequent encounter S82.831D and BMI 40.0-44.9, adult Z68.41 [facility] [address] [place] [address] 47183 -3984 Oct, Sciatica of left side M54.32 [facility] [address], [place] [address]- 0067 Oct, [facility] [address] [address] [id number] [place] [address] 60682- 0495 Oct, Bipolar affective disorder, current episode hypomanic F31.0 [place] [address] [id number] [place] [address] 13526- 4829 Oct, [facility] [address] [place] [id number] [place] [address] 03536- 9118 Oct, PTSD (post-traumatic stress disorder) F43.10 ; Anxiety F41.9 and Bipolar II disorder, moderate, depressed, with anxious distress F31.81 [place] [address] [place] [address] 00447- 9981 Oct, Other closed fracture of distal end of right fibula with routine healing, subsequent encounter S82.831D and BMI 40.0-44.9, adult Z68.41 [facility] [address] [place] [address] 57833- 0176 Oct, Bipolar affective disorder, current episode hypomanic F31.0 [place] [address] [place] [address] 32991- 5883 Sep, BMI 40.0-44.9, adult Z68.41 ; Essential hypertension I10 and Other closed fracture of distal end of right fibula with routine healing, subsequent encounter S82.831D [place] [address] [place] [id number] [place] [address] 48264- 5784 Aug, Bipolar II disorder, moderate, depressed, with anxious distress F31.81 [place] [address] [place] [id number] [place] [address] 61681- 1997 Aug, Bipolar II disorder, moderate, depressed, with anxious distress F31.81 and BMI 40.0-44.9, adult Z68.41 [place] [address] 84265- 0908 Aug, Other closed fracture of distal end of right fibula, initial encounter S82.831A [place] [address] 99558- 5523 Aug, Bipolar II disorder, moderate, depressed, with anxious distress F31.81 and BMI 40.0-44.9, adult Z68.41 [place] [address] [place] [id number] [place] [address] 43065- 8174 Aug, [place] [address] 46497- 5736 Aug, [place] [address] 69553- 1124 Aug, [place] [address] 67193- 6827 Aug, BMI 40.0-44.9, adult Z68.41 [place] [address] 43734- 2366 Aug, Anxiety F41.9 ; PTSD (post-traumatic stress disorder) F43.10 and Bipolar II disorder, moderate, depressed, with anxious distress F31.81 [place] [address] [place] [id number] [place] [address] 55890- 0767 11 Aug, 2017 Dental examination Z01.20 [place] [address] [place] [id number] [place] [address] 46911- 5093 09 Aug, 2017 BMI 40.0-44.9, adult Z68.41 ; Back pain of lumbar region with sciatica M54.40 ; Mild HTN I10 ; Anxiety F41.9 ; Screening for diabetes mellitus (DM) Z13.1 and Screening for lipid disorders Z13.220 [place] [address] 21530- 3987 Aug, Anxiety F41.9 ; PTSD (post-traumatic stress disorder) F43.10 and Bipolar II disorder, moderate, depressed, with anxious distress F31.81 [place] [address] [place] [id number] [place] [address]- [address] Aug, Bipolar II disorder, moderate, depressed, with anxious distress F31.81 and BMI 40.0-44.9, adult Z68.41 [place] [address] 734539- 4186 Jul, [place] [address] 63195- 3776 Jul, [place] [address] 650037- 6134 Jul, Bipolar II disorder, moderate, depressed, with anxious distress F31.81 ; PTSD (post-traumatic stress disorder) F43.10 and Anxiety F41.9 [place] [address] [place] [id number] [place] [address] 72481- 9992 Jul, Bipolar II disorder, moderate, depressed, with anxious distress F31.81 [place] [address] [place] [id number] [place] [address] 35422- 4891 Jul, Bipolar II disorder, moderate, depressed, with anxious distress F31.81 and PTSD (post-traumatic stress disorder) F43.10 [place] [address] [place] [id number] [place] [address] 10187- 4494 Jul, Bipolar II disorder, moderate, depressed, with anxious distress F31.81 [place] [address] [place] [id number] [place] [address] 93287- 8990 Jul, Bipolar II disorder, moderate, depressed, with anxious distress F31.81 ; PTSD (post-traumatic stress disorder) F43.10 and Anxiety F41.9 [facility] [address] [place] [id number] [place] [address] 78198 -6428 Jul, Mild HTN I10 ; Pedal edema R60.0 and BMI 40.0-44.9, adult Z68.41 [facility] [address] [facility] [id number] [place] [address] -[address]199 Jun, Back pain of lumbar region with sciatica M54.40 [facility] [address] [facility] [id number] [place] [address] -[address] Jun, Acute nasopharyngitis (common cold) J00 IMMUNIZATIONS No Known Immunizations SOCIAL HISTORY Never Assessed REASON FOR VISIT Requests return call PLAN OF CARE VITAL SIGNS MEDICATIONS Unknown Medications RESULTS No Results PROCEDURES No Known procedures [...]
--- OUTSIDE RECORDS SUMMARY | 2018-07-10 13:28 | XMS REPORT ---
Author Author CARO JET Organization [facility] Address [address] [place] [address] Care Team Providers Care Media Relations Intern Name Role Phone SHERLEYGISELLA MORANA Unavailable PROBLEMS Type Condition ICD9-CM Code LKF36-DD Code Onset Dates Condition Status SNOMED Code Problem Mild HTN I10 Active 47364669 Problem PTSD (post-traumatic stress disorder) F43.10 Active 14953228 Problem Anxiety F41.9 Active 73263369 Problem Back pain of lumbar region with sciatica M54.40 Active 722723907 Problem Closed fracture of right ankle with routine healing, subsequent encounter S82.891D Active 34332578 Problem Sciatica of left side M54.32 Active 37618245 Problem Bipolar affective disorder, current episode hypomanic F31.0 Active 90849656 Problem Bipolar II disorder, moderate, depressed, with anxious distress F31.81 Active 29095008 Problem BMI 40.0-44.9, adult Z68.41 Active 917527892 Problem Essential hypertension I10 Active 08191826 ALLERGIES No Information ENCOUNTERS Encounter Location Date Diagnosis [place] [id number] [place] [address] 98666- 1978 May, [place] [id number] [place] [address] 10168- 0399 May, [place] [id number] [place] [address] 00845- 1066 May, Essential hypertension I10 ; Swelling of lower extremity M79.89 and Peripheral edema R60.9 [place] [id number] [place] [address] 63805- 4156 May, BMI 45.0-49.9, adult Z68.42 [place] [address] [address]- [address] Apr, BMI 45.0-49.9, adult Z68.42 ; Peripheral edema R60.9 and Right ankle pain, unspecified chronicity M25.571 [facility] [id number] [place] [address] 20073 -0998 Apr, Skin infection L08.9 and BMI 40.0-44.9, adult Z68.41 [facility] [id number] [place] [address] 60767- 5273 Feb, [facility] [id number] [place] [address] 05642- 2671 Feb, [facility] [id number] [place] [address] 28784 -1734 Jan, Back pain of lumbar region with sciatica M54.40 and BMI 45.0-49.9, adult Z68.42 [place] [id number] [place] [address] 35585- 9678 Jan, [place] [id number] [place] [address] 32163- 3090 Jan, Closed fracture of right ankle with routine healing, subsequent encounter S82.891D [place] [id number] [place] [address] 05527- 7766 Jan, [place] [id number] [place] [address] 74214- 9522 Jan, [facility] [id number] [place] [address] 11248- 7803 December, Closed fracture of right ankle with routine healing, subsequent encounter S82.891D [place] [address] 73788- 4456 December, Tendinitis of right peroneus longus tendon M76.71 [facility] [id number] [place] [address] 58295- 4733 December, [place] [address] [place] [address] 2824 December, Closed fracture of right ankle with routine healing, subsequent encounter S82.891D [facility] [id number] [place] [address] 33327- 2679 December, [facility] [id number] [place] [address] 37554- 0732 December, [place] [id number] [place] [address] 13795- 1335 December, History of fracture of right ankle Z87.81 [place] [id number] [place] [address] 70491- 2042 December, History of fracture of right ankle Z87.81 [place] [id number] [place] [address] 21010- 3235 Nov, Other closed fracture of distal end of right fibula with routine healing, subsequent encounter S82.831D and BMI 40.0-44.9, adult Z68.41 [facility] [id number] [place] [address] 76349 -4171 Oct, Sciatica of left side M54.32 [place] [id number] [place] [address] 36975- 7561 Oct, [place] [id number] [place] [address] 24620- 0295 Oct, Bipolar affective disorder, current episode hypomanic F31.0 [place] [id number] [place] [address] 85114- 5330 Oct, [place] [id number] [place] [address] 31773- 3343 Oct, PTSD (post-traumatic stress disorder) F43.10 ; Anxiety F41.9 and Bipolar II disorder, moderate, depressed, with anxious distress F31.81 [facility] [address] [place] [address] 52262- 4101 Oct, Other closed fracture of distal end of right fibula with routine healing, subsequent encounter S82.831D and BMI 40.0-44.9, adult Z68.41 [place] [id number] [place] [address] 86919- 0846 Oct, Bipolar affective disorder, current episode hypomanic F31.0 [place] [id number] [place] [address] 23988- 0030 Sep, BMI 40.0-44.9, adult Z68.41 ; Essential hypertension I10 and Other closed fracture of distal end of right fibula with routine healing, subsequent encounter S82.831D [place] [address] 82678- 1899 Aug, Bipolar II disorder, moderate, depressed, with anxious distress F31.81 [place] [id number] [place] [address] 46174- 0329 Aug, Bipolar II disorder, moderate, depressed, with anxious distress F31.81 and BMI 40.0-44.9, adult Z68.41 [place] [id number] [place] [address] 45527- 7627 Aug, Other closed fracture of distal end of right fibula, initial encounter S82.831A [place] [id number] [place] [address] 41522- 4536 Aug, Bipolar II disorder, moderate, depressed, with anxious distress F31.81 and BMI 40.0-44.9, adult Z68.41 [place] [id number] [place] [address] 99975- 2185 Aug, [place] [id number] [place] [address] 55931- 9365 Aug, [place] [id number] [place] [address] 94235- 0358 Aug, [place] [id number] [place] [address] 99277- 2106 Aug, BMI 40.0-44.9, adult Z68.41 [place] [id number] [place] [address] 63148- 1950 Aug, Anxiety F41.9 ; PTSD (post-traumatic stress disorder) F43.10 and Bipolar II disorder, moderate, depressed, with anxious distress F31.81 [place] [id number] [place] [address] 54863- 4697 11 Aug, 2017 Dental examination Z01.20 [place] [address] 35566- 5575 09 Aug, 2017 BMI 40.0-44.9, adult Z68.41 ; Back pain of lumbar region with sciatica M54.40 ; Mild HTN I10 ; Anxiety F41.9 ; Screening for diabetes mellitus (DM) Z13.1 and Screening for lipid disorders Z13.220 [place] [address] 69902- 8149 Aug, Anxiety F41.9 ; PTSD (post-traumatic stress disorder) F43.10 and Bipolar II disorder, moderate, depressed, with anxious distress F31.81 [place] [id number] [place] [address] 43247- 0903 Aug, Bipolar II disorder, moderate, depressed, with anxious distress F31.81 and BMI 40.0-44.9, adult Z68.41 [place] [id number] [place] [address] 91425- 3128 Jul, [place] [id number] [place] [address] 81685- 9383 Jul, [place] [id number] [place] [address] 75609- 2054 Jul, Bipolar II disorder, moderate, depressed, with anxious distress F31.81 ; PTSD (post-traumatic stress disorder) F43.10 and Anxiety F41.9 [place] [id number] [place] [address] 88035- 2697 Jul, Bipolar II disorder, moderate, depressed, with anxious distress F31.81 [facility] [address] [place] [address] 74546- 9496 Jul, Bipolar II disorder, moderate, depressed, with anxious distress F31.81 and PTSD (post-traumatic stress disorder) F43.10 [place] [address] [address]- 4365 Jul, Bipolar II disorder, moderate, depressed, with anxious distress F31.81 [place] [id number] [place] [address] 143626- 3340 Jul, Bipolar II disorder, moderate, depressed, with anxious distress F31.81 ; PTSD (post-traumatic stress disorder) F43.10 and Anxiety F41.9 [facility] [place] [id number] [place] [address] 24761 -8264 Jul, Mild HTN I10 ; Pedal edema R60.0 and BMI 40.0-44.9, adult Z68.41 [facility] [address] [place] [address] 58194 -4003 Jun, Back pain of lumbar region with sciatica M54.40 [facility] [address] [place] [address] 33384 -2587 Jun, Acute nasopharyngitis (common cold) J00 IMMUNIZATIONS No Known Immunizations SOCIAL HISTORY Never Assessed REASON FOR VISIT Controlled Med Refill PLAN OF CARE VITAL SIGNS MEDICATIONS Unknown [...]
--- OUTSIDE RECORDS SUMMARY | 2018-07-10 13:28 | XMS REPORT ---
Author Author AYESHA SMITH Organization [facility] Address [address] [place] [address] Care Team Providers Care District Fire Management Officer Name Role Phone SANGEETA SMITHTA Unavailable PROBLEMS Type Condition ICD9-CM Code MPB44-KG Code Onset Dates Condition Status SNOMED Code Problem Mild HTN I10 Active 65847196 Problem PTSD (post-traumatic stress disorder) F43.10 Active 19672578 Problem Anxiety F41.9 Active 03317239 Problem Back pain of lumbar region with sciatica M54.40 Active 851462848 Problem Closed fracture of right ankle with routine healing, subsequent encounter S82.891D Active 88873657 Problem Sciatica of left side M54.32 Active 19075649 Problem Bipolar affective disorder, current episode hypomanic F31.0 Active 00405359 Problem Bipolar II disorder, moderate, depressed, with anxious distress F31.81 Active 64062158 Problem BMI 40.0-44.9, adult Z68.41 Active 142346596 Problem Essential hypertension I10 Active 12138960 ALLERGIES No Known Allergies ENCOUNTERS Encounter Location Date Diagnosis [facility] [address] [place] [address] Apr, BMI 45.0-49.9, adult Z68.42 ; Peripheral edema R60.9 and Right ankle pain, unspecified chronicity M25.571 [facility] [address], [place] [address] Apr, Skin infection L08.9 and BMI 40.0-44.9, adult Z68.41 [facility] [address] [place] [address]- 2724 Feb, [facility] [address] [address]- 28[address] Feb, [facility] [address], [place] [address] Jan, Back pain of lumbar region with sciatica M54.40 and BMI 45.0-49.9, adult Z68.42 [facility] [address], [place] [address]- 7205 Jan, [facility] [address], [place] [address]- 6427 Jan, Closed fracture of right ankle with routine healing, subsequent encounter S82.891D [facility] [address], [place] [address]- 6784 Jan, [facility] [id number] [place] [address] 03041- 1997 Jan, [facility] [id number] [place] [address] 17266- 0379 December, Closed fracture of right ankle with routine healing, subsequent encounter S82.891D [facility] [address], [place] [address]- 7807 December, Tendinitis of right peroneus longus tendon M76.71 [facility] [id number] [place] [address] 39644- 2361 December, [facility] [address], [place] [address]- 0521 December, Closed fracture of right ankle with routine healing, subsequent encounter S82.891D [facility] [address], [place] [address]- 6193 December, [facility] [address] [place] [address]- 3330 December, [facility] [address], [place] [address]- 6546 December, History of fracture of right ankle Z87.81 [facility] [address] [place] [address] 66101- 5720 December, History of fracture of right ankle Z87.81 [place] [id number] [place] [address] 68187- 8324 Nov, Other closed fracture of distal end of right fibula with routine healing, subsequent encounter S82.831D and BMI 40.0-44.9, adult Z68.41 [facility] [id number] [place] [address] 69571 -0030 Oct, Sciatica of left side M54.32 [facility] [address] 22722- 3012 Oct, [place] [address] 90893- 5104 Oct, Bipolar affective disorder, current episode hypomanic F31.0 [place] [address] 32596- 4851 Oct, [facility] [address] 22553- 6490 Oct, PTSD (post-traumatic stress disorder) F43.10 ; Anxiety F41.9 and Bipolar II disorder, moderate, depressed, with anxious distress F31.81 [place] [id number] [place] [address] 87262- 5410 Oct, Other closed fracture of distal end of right fibula with routine healing, subsequent encounter S82.831D and BMI 40.0-44.9, adult Z68.41 [facility] [id number] [place] [address] 79709- 5745 Oct, Bipolar affective disorder, current episode hypomanic F31.0 [place] [address] 91095- 9878 Sep, BMI 40.0-44.9, adult Z68.41 ; Essential hypertension I10 and Other closed fracture of distal end of right fibula with routine healing, subsequent encounter S82.831D [place] [address] [place] [address]- 9178 Aug, Bipolar II disorder, moderate, depressed, with anxious distress F31.81 [place] [address] 49143- 6097 Aug, Bipolar II disorder, moderate, depressed, with anxious distress F31.81 and BMI 40.0-44.9, adult Z68.41 [place] [address] 29696- 7869 Aug, Other closed fracture of distal end of right fibula, initial encounter S82.831A [place] [address] 28939- 4510 Aug, Bipolar II disorder, moderate, depressed, with anxious distress F31.81 and BMI 40.0-44.9, adult Z68.41 [place] [address] 94086- 8312 Aug, [place] [address] 32563- 2506 Aug, [place] [address] 64787- 4780 Aug, [place] [address] 23251- 9871 Aug, BMI 40.0-44.9, adult Z68.41 [place] [id number] [place] [address] 99399- 1376 Aug, Anxiety F41.9 ; PTSD (post-traumatic stress disorder) F43.10 and Bipolar II disorder, moderate, depressed, with anxious distress F31.81 [place] [address] 36678- 2102 Aug, Dental examination Z01.20 [place] [address] 63288- 1852 Aug, BMI 40.0-44.9, adult Z68.41 ; Back pain of lumbar region with sciatica M54.40 ; Mild HTN I10 ; Anxiety F41.9 ; Screening for diabetes mellitus (DM) Z13.1 and Screening for lipid disorders Z13.220 [place] [id number] [place] [address]- 279 Aug, Anxiety F41.9 ; PTSD (post-traumatic stress disorder) F43.10 and Bipolar II disorder, moderate, depressed, with anxious distress F31.81 [place] [address] 136006- 3809 Aug, Bipolar II disorder, moderate, depressed, with anxious distress F31.81 and BMI 40.0-44.9, adult Z68.41 [place] [address] 54026- 1013 18 Jul, [address] 509781- 1636 Jul, [address] 00026- 1252 Jul, Bipolar II disorder, moderate, depressed, with anxious distress F31.81 ; PTSD (post-traumatic stress disorder) F43.10 and Anxiety F41.9 [place] [id number] [place] [address] 35740- 8919 15 Jul, 2017 Bipolar II disorder, moderate, depressed, with anxious distress F31.81 [place] [id number] [place] [address] 29567- 1650 Jul, Bipolar II disorder, moderate, depressed, with anxious distress F31.81 and PTSD (post-traumatic stress disorder) F43.10 [place] [address] [place] [address] 44483- 2077 Jul, Bipolar II disorder, moderate, depressed, with anxious distress F31.81 [place] [id number] [place] [address] 90857- 4776 Jul, Bipolar II disorder, moderate, depressed, with anxious distress F31.81 ; PTSD (post-traumatic stress disorder) F43.10 and Anxiety F41.9 [facility] [address] [facility] [id number] [address] Jul, Mild HTN I10 ; Pedal edema R60.0 and BMI 40.0-44.9, adult Z68.41 [facility] [address], [place] [address] Jun, Back pain of lumbar region with sciatica M54.40 [facility] [address] [facility] [id number] [address] Jun, Acute nasopharyngitis (common cold) J00 IMMUNIZATIONS Vaccine Route Administration Date Status TORADOL (IM) 60 MG/2ML (UP TO 15 MG) IM Intramuscular May 09, 2018 Administered SOCIAL HISTORY Never Assessed REASON FOR VISIT Patient c/o redness and swelling in her right ankle. Had tendon surgery on March 20. Pt states that she is in a lot of pain and hurts worse now than she did prior to surgery. Was seen in [facility] yesterday and they rx her Keflex. Pt has appt w/ [facility] tomorrow, as they are not in office today.-[facility] PLAN OF CARE Activity Details Follow Up as scheduled Reason: VITAL SIGNS Height 64 in 2018-05-09 Weight 265 lbs 2018-05-09 Temperature 97.5 degrees Fahrenheit 2018-05-09 Heart Rate 91 bpm 2018-05-09 Respiratory Rate 20 2018-05-09 BMI 45.48 kg/m2 2018-05-09 Blood pressure systolic 130 mmHg 2018-05-09 Blood pressure diastolic 82 mmHg 2018-05-09 MEDICATIONS Medication Instructions Dosage Frequency Start Date End Date Duration Status Hydrochlorothiazide 12.5 MG Orally Once a day 1 tablet in the morning 24h Apr, 30 day(s) Active Ibuprofen 200 mg Orally every 6 hrs 3 tablet with food or milk as needed 6h Active Cephalexin 500 mg Orally every 12 hrs 1 tablet 12h Apr, May, 10 day(s) Active Trazodone HCl 100 MG Orally at bedtime as needed for sleep 1-2 tablets 30 days Active RESULTS No Results PROCEDURES Procedure Date Ordered Result Body Site TORADOL (IM) 60 MG/2ML (UP TO 15 MG) May 09, 2018 THER/PROPH/DIAG INJ, SC/IM May 09, 2018 INSTRUCTIONS MEDICATIONS ADMINISTERED No Known Medications [...]
--- OUTSIDE RECORDS SUMMARY | 2018-07-10 13:29 | XMS REPORT ---
Author Author VINCENT HELLER Organization [facility] Address [address] [place] [address] Care Team Providers Care Radioisotope Production Operator Name Role Phone VINCENT HELLER Unavailable PROBLEMS Type Condition ICD9-CM Code VPL39-DD Code Onset Dates Condition Status SNOMED Code Problem Mild HTN I10 Active 52972266 Problem PTSD (post-traumatic stress disorder) F43.10 Active 61040475 Problem Anxiety F41.9 Active 28932574 Problem Back pain of lumbar region with sciatica M54.40 Active 073437443 Problem Closed fracture of right ankle with routine healing, subsequent encounter S82.891D Active 99264248 Problem Sciatica of left side M54.32 Active 92875953 Problem Bipolar affective disorder, current episode hypomanic F31.0 Active 83216633 Problem Bipolar II disorder, moderate, depressed, with anxious distress F31.81 Active 35339753 Problem BMI 40.0-44.9, adult Z68.41 Active 227035261 Problem Essential hypertension I10 Active 17457964 ALLERGIES No Known Allergies ENCOUNTERS Encounter Location Date Diagnosis [facility] [id number] [place] [address] 22026- 0567 Feb, [facility] [id number] [place] [address] 36363- 1489 Feb, [facility] [id number] [place] [address] 12455 -0648 Jan, Back pain of lumbar region with sciatica M54.40 and BMI 45.0-49.9, adult Z68.42 [facility] [id number] [place] [address] 39001- 9018 Jan, [facility] [id number] [place] [address] 29788- 4363 Jan, Closed fracture of right ankle with routine healing, subsequent encounter S82.891D [facility] [id number] [address] 1672 Jan, [facility] [id number] [place] [address] 375585- 8926 Jan, [facility] [id number] [address] 7592 December, Closed fracture of right ankle with routine healing, subsequent encounter S82.891D [facility] [id number] [place] [address] 43191- 3631 December, Tendinitis of right peroneus longus tendon M76.71 [facility] [id number] [place] [address] 58372- 1446 December, [facility] [id number] [place] [address] 65242- 7122 December, Closed fracture of right ankle with routine healing, subsequent encounter S82.891D [facility] [id number] [address] 4058 December, [facility] [id number] [place] [address] 28132- 2096 December, [facility] [id number] [address] 6084 December, History of fracture of right ankle Z87.81 [facility] [address] [place] [address] 82900- 7590 December, History of fracture of right ankle Z87.81 [facility] [address] [address] Nov, Other closed fracture of distal end of right fibula with routine healing, subsequent encounter S82.831D and BMI 40.0-44.9, adult Z68.41 [facility] [address] [address] Oct, Sciatica of left side M54.32 [facility] [id number] [place] [address] 60131- 1603 Oct, [facility] [id number] [place] [address] 00562- 3514 Oct, Bipolar affective disorder, current episode hypomanic F31.0 [facility] [address] 32916- 2009 Oct, [facility] [address] 27086- 5045 Oct, PTSD (post-traumatic stress disorder) F43.10 ; Anxiety F41.9 and Bipolar II disorder, moderate, depressed, with anxious distress F31.81 [facility] [id number] [place] [address] 23368- 3442 Oct, Other closed fracture of distal end of right fibula with routine healing, subsequent encounter S82.831D and BMI 40.0-44.9, adult Z68.41 [facility] [id number] [place] [address] 70869- 2199 Oct, Bipolar affective disorder, current episode hypomanic F31.0 [facility] [id number] [place] [address] 92283- 3667 Sep, BMI 40.0-44.9, adult Z68.41 ; Essential hypertension I10 and Other closed fracture of distal end of right fibula with routine healing, subsequent encounter S82.831D [facility] [id number] [place] [address] 60313- 6640 Aug, Bipolar II disorder, moderate, depressed, with anxious distress F31.81 [facility] [id number] [place] [address] 51135- 1444 Aug, Bipolar II disorder, moderate, depressed, with anxious distress F31.81 and BMI 40.0-44.9, adult Z68.41 [place] [address] 15103- 5420 Aug, Other closed fracture of distal end of right fibula, initial encounter S82.831A [facility] [id number] [place] [address] Aug, Bipolar II disorder, moderate, depressed, with anxious distress F31.81 and BMI 40.0-44.9, adult Z68.41 [facility] [id number] [place] [address] 23988- 4334 Aug, [facility] [id number] [place] [address] 29224- 6808 Aug, [facility] [id number] [place] [address] 05501- 5203 Aug, [facility] [id number] [place] [address] 67752- 5875 Aug, BMI 40.0-44.9, adult Z68.41 [facility] [id number] [place] [address] 68391- 3841 Aug, Anxiety F41.9 ; PTSD (post-traumatic stress disorder) F43.10 and Bipolar II disorder, moderate, depressed, with anxious distress F31.81 [facility] [id number] [place] [address] 97667- 9159 11 Aug, 2017 Dental examination Z01.20 [facility] [id number] [place] [address] 20227- 1401 09 Aug, 2017 BMI 40.0-44.9, adult Z68.41 ; Back pain of lumbar region with sciatica M54.40 ; Mild HTN I10 ; Anxiety F41.9 ; Screening for diabetes mellitus (DM) Z13.1 and Screening for lipid disorders Z13.220 [place] [address] [place] [address] 63232- 3673 04 Aug, 2017 Anxiety F41.9 ; PTSD (post-traumatic stress disorder) F43.10 and Bipolar II disorder, moderate, depressed, with anxious distress F31.81 [facility] [id number] [place] [address] 12291- 5998 Aug, Bipolar II disorder, moderate, depressed, with anxious distress F31.81 and BMI 40.0-44.9, adult Z68.41 [facility] [id number] [place] [address] 12299- 8155 Jul, [facility] [id number] [place] [address] 862657- 5744 Jul, [facility] [address] 38432- 0724 Jul, Bipolar II disorder, moderate, depressed, with anxious distress F31.81 ; PTSD (post-traumatic stress disorder) F43.10 and Anxiety F41.9 [facility] [id number] [place] [address] 36095- 7048 15 Jul, 2017 Bipolar II disorder, moderate, depressed, with anxious distress F31.81 [facility] [id number] [place] [address] 91826- 9916 Jul, Bipolar II disorder, moderate, depressed, with anxious distress F31.81 and PTSD (post-traumatic stress disorder) F43.10 [facility] [id number] [place] [address] 56162- 5605 Jul, Bipolar II disorder, moderate, depressed, with anxious distress F31.81 [facility] [id number] [place] [address] 36183- 5693 Jul, Bipolar II disorder, moderate, depressed, with anxious distress F31.81 ; PTSD (post-traumatic stress disorder) F43.10 and Anxiety F41.9 [facility] [address] [place] [id number] [place] [address] 35999 -9221 04 Jul, 2017 Mild HTN I10 ; Pedal edema R60.0 and BMI 40.0-44.9, adult Z68.41 [facility] [place] [id number] [place] [address] 00920 -4675 Jun, Back pain of lumbar region with sciatica M54.40 [facility] [address] [facility] [id number] [address] Jun, Acute nasopharyngitis (common cold) J00 IMMUNIZATIONS No Known Immunizations SOCIAL HISTORY Never Assessed REASON FOR VISIT left lower back pain that radiates down to her thigh. been hurting since last noc. [email or web address] PLAN OF CARE Activity Details Follow Up w/ Dr. Olea Reason:chronic back pain VITAL SIGNS Height 64 in 2018-02-02 Weight 271.0 lbs 2018-02-02 Temperature 97.5 degrees Fahrenheit 2018-02-02 Heart Rate 82 bpm 2018-02-02 Respiratory Rate 20 2018-02-02 BMI 46.51 kg/m2 2018-02-02 Blood pressure systolic 130 mmHg 2018-02-02 Blood pressure diastolic 78 mmHg 2018-02-02 MEDICATIONS Medication Instructions Dosage Frequency Start Date End Date Duration Status Tylenol 8 Hour 650 MG Orally every 8 hrs 2 tablets as needed 8h Active HydrOXYzine HCl 50 MG Orally three times a day as needed for anxiety 1-2 tablet Oct, 30 days Active Trileptal 300 MG Orally Twice a day 1 tablet 12h Oct, 30 days Active Cyclobenzaprine HCl 10 mg Orally at bedtime as needed 1 tablet as needed Jan, Jan, 07 days Active Ibuprofen 200 mg Orally every 6 hrs 3 tablet with food or milk as needed 6h Active Hydrochlorothiazide 25 MG Orally Once a day 1 tablet in the morning 24h 30 Active PredniSONE 20 mg Orally Once a day 2 tablets 24h Jan, Jan, 05 days Active Lisinopril 20 mg Orally Once a day 1 tablet 24h 30 Active Latuda 80 MG Orally Once a day 1 tablet 24h Jul, 30 days Active Trazodone HCl 100 MG Orally at [...] surgery for c-seciton complication 1x, abdomnial wound Hospitalization History Psychiatric inpatient treatment multiple times in teenage years, last one age 19 Hospitalization History surgeries,
--- OUTSIDE RECORDS SUMMARY | 2018-07-10 13:29 | XMS REPORT ---
Author Author CONRAD BETSEY [facility] Address [address] [place] [address] Care Team Providers Care Speech Lang Path Name Role Phone CONRADLAURA CORTESHANY Unavailable PROBLEMS Type Condition ICD9-CM Code MXT49-LU Code Onset Dates Condition Status SNOMED Code Problem Mild HTN I10 Active 54771589 Problem PTSD (post-traumatic stress disorder) F43.10 Active 50212994 Problem Anxiety F41.9 Active 31818238 Problem Back pain of lumbar region with sciatica M54.40 Active 609773880 Problem Closed fracture of right ankle with routine healing, subsequent encounter S82.891D Active 78240126 Problem Sciatica of left side M54.32 Active 24624257 Problem Bipolar affective disorder, current episode hypomanic F31.0 Active 77321769 Problem Bipolar II disorder, moderate, depressed, with anxious distress F31.81 Active 16548738 Problem BMI 40.0-44.9, adult Z68.41 Active 291317038 Problem Essential hypertension I10 Active 64318359 ALLERGIES No Information ENCOUNTERS Encounter Location Date Diagnosis [facility] [id number] [place] [address] 75483- 0999 Feb, [facility] [id number] [place] [address] 17816- 1103 Feb, [facility] [id number] [place] [address] 85214 -9303 Jan, Back pain of lumbar region with sciatica M54.40 and BMI 45.0-49.9, adult Z68.42 [facility] [id number] [place] [address] 26859- 4468 Jan, [facility] [id number] [place] [address] 58410- 9860 Jan, Closed fracture of right ankle with routine healing, subsequent encounter S82.891D [facility] [address] [address]- 4872 Jan, [facility] [id number] [place] [address] 873714- 1266 Jan, [facility] [address] [address]- 0697 December, Closed fracture of right ankle with routine healing, subsequent encounter S82.891D [facility] [address] [place] [address] 75940- 1288 December, Tendinitis of right peroneus longus tendon M76.71 [facility] [id number] [place] [address] 721523- 4481 December, [facility] [id number] [place] [address] 12071- 3150 December, Closed fracture of right ankle with routine healing, subsequent encounter S82.891D [facility] [address] [place] [address] 89433- 1128 December, [facility] [id number] [place] [address] 24333- 4756 December, [facility] [address] [address]- 2830 December, History of fracture of right ankle Z87.81 [facility] [id number] [place] [address] 22581- 2328 December, History of fracture of right ankle Z87.81 [facility] [address] [place] [address] 49444- 3353 Nov, Other closed fracture of distal end of right fibula with routine healing, subsequent encounter S82.831D and BMI 40.0-44.9, adult Z68.41 [facility] [address], [place] [address] Oct, Sciatica of left side M54.32 [facility] [id number] [place] [address] 99552- 1613 Oct, [facility] [id number] [place] [address] 92331- 4905 Oct, Bipolar affective disorder, current episode hypomanic F31.0 [facility] [id number] [place] [address] 15754- 5113 Oct, [facility] [id number] [place] [address] 48561- 6504 Oct, PTSD (post-traumatic stress disorder) F43.10 ; Anxiety F41.9 and Bipolar II disorder, moderate, depressed, with anxious distress F31.81 [facility] [id number] [place] [address] 04326- 0530 Oct, Other closed fracture of distal end of right fibula with routine healing, subsequent encounter S82.831D and BMI 40.0-44.9, adult Z68.41 [facility] [id number] [place] [address] 70263- 5271 Oct, Bipolar affective disorder, current episode hypomanic F31.0 [facility] [id number] [place] [address] 07571- 5892 Sep, BMI 40.0-44.9, adult Z68.41 ; Essential hypertension I10 and Other closed fracture of distal end of right fibula with routine healing, subsequent encounter S82.831D [facility] [address] [place] [address] 84326- 7610 Aug, Bipolar II disorder, moderate, depressed, with anxious distress F31.81 [facility] [id number] [place] [address] 21636- 3165 Aug, Bipolar II disorder, moderate, depressed, with anxious distress F31.81 and BMI 40.0-44.9, adult Z68.41 [facility] [id number] [place] [address] 24916- 3381 Aug, Other closed fracture of distal end of right fibula, initial encounter S82.831A [facility] [id number] [place] [address]- 9843 Aug, Bipolar II disorder, moderate, depressed, with anxious distress F31.81 and BMI 40.0-44.9, adult Z68.41 [facility] [id number] [place] [address] 18860- 1986 Aug, [place] [id number] [place] [address] 69887- 0831 Aug, [facility] [id number] [place] [address] 03705- 3310 Aug, [facility] [id number] [place] [address] 44198- 1555 Aug, BMI 40.0-44.9, adult Z68.41 [facility] [id number] [place] [address] 36626- 6147 Aug, Anxiety F41.9 ; PTSD (post-traumatic stress disorder) F43.10 and Bipolar II disorder, moderate, depressed, with anxious distress F31.81 [facility] [address] [place] [address] 71035- 9474 11 Aug, 2017 Dental examination Z01.20 [facility] [id number] [place] [address] 27262- 3813 09 Aug, 2017 BMI 40.0-44.9, adult Z68.41 ; Back pain of lumbar region with sciatica M54.40 ; Mild HTN I10 ; Anxiety F41.9 ; Screening for diabetes mellitus (DM) Z13.1 and Screening for lipid disorders Z13.220 [place] [address] [place] [address] 80355- 5716 04 Aug, 2017 Anxiety F41.9 ; PTSD (post-traumatic stress disorder) F43.10 and Bipolar II disorder, moderate, depressed, with anxious distress F31.81 [facility] [id number] [place] [address] 16832- 1487 Aug, Bipolar II disorder, moderate, depressed, with anxious distress F31.81 and BMI 40.0-44.9, adult Z68.41 [facility] [id number] [place] [address] 47673- 6928 Jul, [facility] [facility] [id number] [place] [address] 193841- 4084 Jul, [place] [address] 94699- 7460 Jul, Bipolar II disorder, moderate, depressed, with anxious distress F31.81 ; PTSD (post-traumatic stress disorder) F43.10 and Anxiety F41.9 [facility] [id number] [place] [address] 40643- 1215 Jul, Bipolar II disorder, moderate, depressed, with anxious distress F31.81 [facility] [id number] [place] [address] 02738- 5684 Jul, Bipolar II disorder, moderate, depressed, with anxious distress F31.81 and PTSD (post-traumatic stress disorder) F43.10 [facility] [facility] [id number] [place] [address] 83446- 3365 Jul, Bipolar II disorder, moderate, depressed, with anxious distress F31.81 [place] [id number] [place] [address] 90220- 8229 Jul, Bipolar II disorder, moderate, depressed, with anxious distress F31.81 ; PTSD (post-traumatic stress disorder) F43.[address] [facility] [address] [place] [id number] [place] [address] 50798 -1480 04 Jul, 2017 Mild HTN I10 ; Pedal edema R60.0 and BMI 40.0-44.9, adult Z68.41 [facility] [place] [id number] [place] [address] 17489 -1935 Jun, Back pain of lumbar region with sciatica M54.40 [facility] [address] [facility] [id number] [address] Jun, Acute nasopharyngitis (common cold) J00 IMMUNIZATIONS No Known Immunizations SOCIAL HISTORY Never Assessed REASON FOR VISIT PLAN OF CARE VITAL SIGNS MEDICATIONS Unknown [...]
--- OUTSIDE RECORDS SUMMARY | 2018-07-10 13:29 | XMS REPORT ---
Author Author JOHNY JOHNSON Organization [facility] Address [address] [place] [address] Care Team Providers Care Director Radiation Oncology Name Role Phone JOHNY JOHNSON Unavailable PROBLEMS Type Condition ICD9-CM Code UXG20-ZV Code Onset Dates Condition Status SNOMED Code Problem Mild HTN I10 Active 48026124 Problem PTSD (post-traumatic stress disorder) F43.10 Active 65582336 Problem Anxiety F41.9 Active 36993719 Problem Back pain of lumbar region with sciatica M54.40 Active 406389755 Problem Closed fracture of right ankle with routine healing, subsequent encounter S82.891D Active 27332135 Problem Sciatica of left side M54.32 Active 37486092 Problem Bipolar affective disorder, current episode hypomanic F31.0 Active 77597663 Problem Bipolar II disorder, moderate, depressed, with anxious distress F31.81 Active 26129537 Problem BMI 40.0-44.9, adult Z68.41 Active 463564113 Problem Essential hypertension I10 Active 46461840 ALLERGIES No Information ENCOUNTERS Encounter Location Date Diagnosis [facility] [id number] [place] [address] 16287- 0123 Feb, [facility] [id number] [place] [address] 08144- 7511 Feb, [facility] [id number] [place] [address] 79183 -1394 Jan, Back pain of lumbar region with sciatica M54.40 and BMI 45.0-49.9, adult Z68.42 [facility] [id number] [place] [address] 54774- 3266 Jan, [facility] [id number] [place] [address] 79133- 0301 Jan, Closed fracture of right ankle with routine healing, subsequent encounter S82.891D [facility] [address] [address] Jan, [facility] [id number] [place] [address] 294288- 6146 Jan, [facility] [id number] [place] [address] 906657- 8189 December, Closed fracture of right ankle with routine healing, subsequent encounter S82.891D [facility] [id number] [place] [address] 688717- 7508 December, Tendinitis of right peroneus longus tendon M76.71 [facility] [id number] [place] [address] 303396- 8396 December, [facility] [id number] [place] [address] 17615- 1899 December, Closed fracture of right ankle with routine healing, subsequent encounter S82.891D [facility] [id number] [place] [address] 43064- 4997 December, [facility] [id number] [place] [address] 64301- 4242 December, [facility] [id number] [place] [address] 77213- 8163 December, History of fracture of right ankle Z87.81 [facility] [id number] [place] [address] 21043- 5050 December, History of fracture of right ankle Z87.81 [facility] [address] [place] [address] 73436- 2159 Nov, Other closed fracture of distal end of right fibula with routine healing, subsequent encounter S82.831D and BMI 40.0-44.9, adult Z68.41 [facility] [address] [address] Oct, Sciatica of left side M54.32 [place] [address] [place] [address] 32671- 8356 Oct, [place] [id number] [place] [address] 50621- 8074 Oct, Bipolar affective disorder, current episode hypomanic F31.0 [place] [id number] [place] [address] 16740- 5088 Oct, [place] [id number] [place] [address] 99693- 5654 Oct, PTSD (post-traumatic stress disorder) F43.10 ; Anxiety F41.9 and Bipolar II disorder, moderate, depressed, with anxious distress F31.81 [place] [id number] [place] [address] 35730- 0859 Oct, Other closed fracture of distal end of right fibula with routine healing, subsequent encounter S82.831D and BMI 40.0-44.9, adult Z68.41 [place] [id number] [place] [address] 94946- 0798 Oct, Bipolar affective disorder, current episode hypomanic F31.0 [place] [id number] [place] [address] 24455- 5717 Sep, BMI 40.0-44.9, adult Z68.41 ; Essential hypertension I10 and Other closed fracture of distal end of right fibula with routine healing, subsequent encounter S82.831D [place] [address] [place] [address] 12071- 6799 Aug, Bipolar II disorder, moderate, depressed, with anxious distress F31.81 [place] [id number] [place] [address] 25677- 7022 Aug, Bipolar II disorder, moderate, depressed, with anxious distress F31.81 and BMI 40.0-44.9, adult Z68.41 [place] [id number] [place] [address] 91038- 2151 Aug, Other closed fracture of distal end of right fibula, initial encounter S82.831A [place] [id number] [place], [place] [address] 5[address] Aug, Bipolar II disorder, moderate, depressed, with anxious distress F31.81 and BMI 40.0-44.9, adult Z68.41 [place] [id number] [place] [address] 90234- 9708 Aug, [place] [id number] [place] [address] 01664- 9216 Aug, [place] [address] 013549- 0966 Aug, [place] [id number] [place] [address] 08217- 8967 Aug, BMI 40.0-44.9, adult Z68.41 [place] [id number] [place] [address] 73766- 4828 Aug, Anxiety F41.9 ; PTSD (post-traumatic stress disorder) F43.10 and Bipolar II disorder, moderate, depressed, with anxious distress F31.81 [place] [address] [place] [address] 20522- 3944 Aug, Dental examination Z01.20 [place] [id number] [place] [address] 69031- 1935 09 Aug, 2017 BMI 40.0-44.9, adult Z68.41 ; Back pain of lumbar region with sciatica M54.40 ; Mild HTN I10 ; Anxiety F41.9 ; Screening for diabetes mellitus (DM) Z13.1 and Screening for lipid disorders Z13.220 [place] [id number] [place] [address] 96370- 5425 04 Aug, 2017 Anxiety F41.9 ; PTSD (post-traumatic stress disorder) F43.10 and Bipolar II disorder, moderate, depressed, with anxious distress F31.81 [facility] [address] [place] [address] 43314- 4956 Aug, Bipolar II disorder, moderate, depressed, with anxious distress F31.81 and BMI 40.0-44.9, adult Z68.41 [place] [id number] [place] [address] 62465- 3116 Jul, [address] 647509- 4331 Jul, [address] 69711- 5952 Jul, Bipolar II disorder, moderate, depressed, with anxious distress F31.81 ; PTSD (post-traumatic stress disorder) F43.10 and Anxiety F41.9 [place] [id number] [place] [address] 69771- 9328 Jul, Bipolar II disorder, moderate, depressed, with anxious distress F31.81 [place] [id number] [place] [address] 80315- 7037 Jul, Bipolar II disorder, moderate, depressed, with anxious distress F31.81 and PTSD (post-traumatic stress disorder) F43.10 [place] [id number] [place] [address] 83809- 5863 Jul, Bipolar II disorder, moderate, depressed, with anxious distress F31.81 [place] [id number] [place] [address] 68504- 4082 Jul, Bipolar II disorder, moderate, depressed, with anxious distress F31.81 ; PTSD (post-traumatic stress disorder) F43.10 and Anxiety F41.[address] [facility] [address] [place] [id number] [place] [address] 85968 -3028 Jul, Mild HTN I10 ; Pedal edema R60.0 and BMI 40.0-44.9, adult Z68.41 [facility] [place] [id number] [place] [address] 49235 -2276 Jun, Back pain of lumbar region with sciatica M54.40 [facility] [address] [facility] [id number] [place] [address] Jun, Acute nasopharyngitis (common cold) J00 IMMUNIZATIONS No Known Immunizations SOCIAL HISTORY Never Assessed REASON FOR VISIT pain PLAN OF CARE VITAL SIGNS MEDICATIONS Medication Instructions Dosage Frequency Start Date End Date Duration Status [place] 5-325 MG Orally 2 times a day 1 tablet as needed 12h Feb, Feb, 07 days Active RESULTS No Results PROCEDURES No [...]
--- OUTSIDE RECORDS SUMMARY | 2018-07-10 13:29 | XMS REPORT ---
Author Author VINCENT HELLER Organization [facility] Address [address] [place] [address] Care Team Providers Care Talent Acquisition Director Name Role Phone VINCENT HELLER Unavailable PROBLEMS Type Condition ICD9-CM Code BOR62-IF Code Onset Dates Condition Status SNOMED Code Problem Mild HTN I10 Active 17167302 Problem PTSD (post-traumatic stress disorder) F43.10 Active 13067972 Problem Anxiety F41.9 Active 20500275 Problem Back pain of lumbar region with sciatica M54.40 Active 265282307 Problem Closed fracture of right ankle with routine healing, subsequent encounter S82.891D Active 43316984 Problem Sciatica of left side M54.32 Active 29403690 Problem Bipolar affective disorder, current episode hypomanic F31.0 Active 30912222 Problem Bipolar II disorder, moderate, depressed, with anxious distress F31.81 Active 68309300 Problem BMI 40.0-44.9, adult Z68.41 Active 761024319 Problem Essential hypertension I10 Active 51773064 ALLERGIES No Known Allergies ENCOUNTERS Encounter Location Date Diagnosis [facility] [address] [place] [address] 38205- 1707 Apr, BMI 45.0-49.9, adult Z68.42 ; Peripheral edema R60.9 and Right ankle pain, unspecified chronicity M25.571 [facility] [id number] [address] Apr, Skin infection L08.9 and BMI 40.0-44.9, adult Z68.41 [facility] [address], [place] [address]- 3362 Feb, [facility] [address] [address]- 0739 Feb, [facility] [address] [address] Jan, Back pain of lumbar region with sciatica M54.40 and BMI 45.0-49.9, adult Z68.42 [facility] [address], [place] [address]- 0852 Jan, [facility] [id number] [place] [address] 76141- 7489 Jan, Closed fracture of right ankle with routine healing, subsequent encounter S82.891D [facility] [address] [place] [address] 89452- 2121 Jan, [facility] [id number] [place] [address] 01793- 1318 Jan, [facility] [id number] [place] [address] 41950- 0787 December, Closed fracture of right ankle with routine healing, subsequent encounter S82.891D [facility] [id number] [address]- 7026 December, Tendinitis of right peroneus longus tendon M76.71 [facility] [address] [place] [address] 11298- 8553 December, [facility] [address], [place] [address]- 1015 December, Closed fracture of right ankle with routine healing, subsequent encounter S82.891D [facility] [address] [address]- 3927 December, [facility] [id number] [place] [address] 97593- 2951 December, [facility] [address], [place] [address]- 9277 December, History of fracture of right ankle Z87.81 [facility] [id number] [place] [address] 90135- 4430 December, History of fracture of right ankle Z87.81 [place] [address] [place] [address] 68033- 4262 Nov, Other closed fracture of distal end of right fibula with routine healing, subsequent encounter S82.831D and BMI 40.0-44.9, adult Z68.41 [facility] [id number] [place] [address] 94475 -9903 Oct, Sciatica of left side M54.32 [facility] [id number] [place] [address] 74398- 5176 Oct, [place] [id number] [place] [address] 20695- 8397 Oct, Bipolar affective disorder, current episode hypomanic F31.0 [place] [id number] [place] [address] 45531- 6938 Oct, [facility] [id number] [place] [address] 74664- 8057 Oct, PTSD (post-traumatic stress disorder) F43.10 ; Anxiety F41.9 and Bipolar II disorder, moderate, depressed, with anxious distress F31.81 [place] [address] [place] [address] 18992- 1638 Oct, Other closed fracture of distal end of right fibula with routine healing, subsequent encounter S82.831D and BMI 40.0-44.9, adult Z68.41 [facility] [address] [place] [address] 44273- 0785 Oct, Bipolar affective disorder, current episode hypomanic F31.0 [place] [id number] [place] [address] 76902- 6474 Sep, BMI 40.0-44.9, adult Z68.41 ; Essential hypertension I10 and Other closed fracture of distal end of right fibula with routine healing, subsequent encounter S82.831D [place] [id number] [place] [address] 12672- 1202 Aug, Bipolar II disorder, moderate, depressed, with anxious distress F31.81 [place] [address] 79326- 0542 Aug, Bipolar II disorder, moderate, depressed, with anxious distress F31.81 and BMI 40.0-44.9, adult Z68.41 [place] [address] 15714- 6594 Aug, Other closed fracture of distal end of right fibula, initial encounter S82.831A [place] [address] 08970- 6143 Aug, Bipolar II disorder, moderate, depressed, with anxious distress F31.81 and BMI 40.0-44.9, adult Z68.41 [place] [address] 09732- 1484 Aug, [place] [address] 64899- 1020 Aug, [place] [address] 43816- 1930 Aug, [place] [id number] [place] [address] 48471- 5730 Aug, BMI 40.0-44.9, adult Z68.41 [place] [address] 89352- 0881 Aug, Anxiety F41.9 ; PTSD (post-traumatic stress disorder) F43.10 and Bipolar II disorder, moderate, depressed, with anxious distress F31.81 [place] [id number] [place] [address] 85207- 3607 Aug, Dental examination Z01.20 [place] [address] 10608- 7673 09 Aug, 2017 BMI 40.0-44.9, adult Z68.41 ; Back pain of lumbar region with sciatica M54.40 ; Mild HTN I10 ; Anxiety F41.9 ; Screening for diabetes mellitus (DM) Z13.1 and Screening for lipid disorders Z13.220 [place] [id number] [place] [address] Aug, Anxiety F41.9 ; PTSD (post-traumatic stress disorder) F43.10 and Bipolar II disorder, moderate, depressed, with anxious distress F31.81 [place] [id number] [place] [address] 9527 Aug, Bipolar II disorder, moderate, depressed, with anxious distress F31.81 and BMI 40.0-44.9, adult Z68.41 [place] [id number] [place] [address] 37008- 5709 Jul, [address] 999682- 1694 Jul, [place] [address] 32610- 3071 Jul, Bipolar II disorder, moderate, depressed, with anxious distress F31.81 ; PTSD (post-traumatic stress disorder) F43.10 and Anxiety F41.9 [place] [id number] [place] [address] 33780- 2474 Jul, Bipolar II disorder, moderate, depressed, with anxious distress F31.81 [place] [id number] [place] [address] 87883- 7613 Jul, Bipolar II disorder, moderate, depressed, with anxious distress F31.81 and PTSD (post-traumatic stress disorder) F43.[address] 82422- 3757 Jul, Bipolar II disorder, moderate, depressed, with anxious distress F31.81 [place] [id number] [place] [address] 64330- 4386 Jul, Bipolar II disorder, moderate, depressed, with anxious distress F31.81 ; PTSD (post-traumatic stress disorder) F43.10 and Anxiety F41.9 [facility] [address] [facility] [id number] [address] Jul, Mild HTN I10 ; Pedal edema R60.0 and BMI 40.0-44.9, adult Z68.41 [facility] [id number] [address] Jun, Back pain of lumbar region with sciatica M54.40 [facility] [address] [facility] [id number] [address] Jun, Acute nasopharyngitis (common cold) J00 IMMUNIZATIONS No Known Immunizations SOCIAL HISTORY Never Assessed REASON FOR VISIT possibly infected stitches-The patient had foot surgery on her right foot/ankle and the patient says the incision is red and painful. She is 7 weeks post op and has not had any problems thus far.--EZEKIEL Bustamante PLAN OF CARE Activity Details Follow Up w/ Dr. Moctezuma 05/10 Reason:f/u from surgery/incision site pain VITAL SIGNS Height 64 in 2018-05-08 Weight 260.8 lbs 2018-05-08 Temperature 98.5 degrees Fahrenheit 2018-05-08 Heart Rate 96 bpm 2018-05-08 Respiratory Rate 20 2018-05-08 BMI 44.76 kg/m2 2018-05-08 Blood pressure systolic 140 mmHg 2018-05-08 Blood pressure diastolic 82 mmHg 2018-05-08 MEDICATIONS Medication Instructions Dosage Frequency Start Date End Date Duration Status Trazodone HCl 100 MG Orally at bedtime as needed for sleep 1-2 tablets 30 days Active Cephalexin 500 mg Orally every 12 hrs 1 tablet 12h 25 Apr, 2018 5 May, 2018 10 day(s) Active Ibuprofen 200 mg Orally every 6 hrs 3 tablet with food or milk as needed 6h Active RESULTS No Results PROCEDURES No Known [...]
[2018-07-10] MEDS ORDERED: HYDROcodone/APAP 5 MG/325 MG (LORTAB) TAB PO STA (13:45)
--- NOTE | 2018-07-10 14:31 | Diagnostic Imaging Report ---
INDICATION: Fall with right ankle pain. TIME OF EXAMINATION: 02:22 p.m. FINDINGS: Three views of the right ankle were obtained. Alignment is normal. Ankle mortise is well maintained. Talar dome is smooth. No fracture or dislocation is identified. There is a large plantar calcaneal spur. IMPRESSION: No acute bony abnormality is detected. Dictated by: Dictated on workstation # [id number]
--- NOTE | 2018-07-10 14:45 | ED Lower Extremity ---
General Chief Complaint: Lower Extremity Stated Complaint: ANKLE INJ Nursing Triage Note: pt rpesetns to er with complaint of right ankle injury/. pt states she tripped on sidewalk earlier and rolled ankle outward. pt states she had surgery in march on right ankle due to torn tendons. Nursing Sepsis Screen: No Definite Risk History of Present Illness Date Seen by Provider: Jul 10, 2018 Time Seen by Provider: 13:45 Initial Comments 37-year-old female presents for right ankle injury. She has had recurrent ankle sprains over the last year. Today she was walking on the sidewalk when she tripped and rolled her ankle. She had surgery in March of this year for tendon repair on the right ankle. She just started physical therapy this week. Of note she has at least 10 hydrocodone 5 and 7.5mg (most for quantities of 30-56) prescriptions filled since August of this year, from various providers. Onset: just prior to arrival Pain/Injury Location: right ankle Method of Injury: sports injury, twisted Modifying Factors: Improves With Immobilization Allergies and Home Medications Allergies Coded Allergies: No Known Drug Allergies (Unverified , 04/03/18) Home Medications Amoxicillin 500 Mg Tablet, 500 MG PO TID Prescribed by: AVEL CABRERA on 04/10/18 1223 Hydrochlorothiazide 25 Mg Tablet, 25 MG PO DAILY Prescribed by: AVEL CABRERA on 07/10/17 1348 Hydrocodone/Acetaminophen 1 Each Tablet, 1 EACH PO Q4H PRN for PAIN-SEVERE Prescribed by: AVEL CABRERA on 09/02/17 1306 Hydrocodone/Acetaminophen 1 Each Tablet, 1 EACH PO Q4H PRN for PAIN-MILD Prescribed by: AVEL CABRERA on 04/10/18 1223 Naproxen 500 Mg Tablet, 500 MG PO BID PRN for pain Prescribed by: RODOLFO GOMEZ on 09/01/17 1821 Naproxen 500 Mg Tablet, 500 MG PO BID Prescribed by: JANESSA RINCON on 04/03/18 0232 Patient Home Medication List Home Medication List Reviewed: Yes Review of Systems Constitutional: no symptoms reported, see HPI Musculoskeletal: see HPI, joint pain (right ankle), joint swelling All Other Systems Reviewed Negative Unless Noted: Yes Past Ecejpch-Ipraxp-Mvgzqx Hx Past Med/Social Hx: Reviewed Nursing Past Med/Soc Hx Patient Social History Alcohol Use: Denies Use Recreational Drug Use: No Smoking Status: Current Everyday Smoker Type Used: Cigarettes Recent Foreign Travel: No Contact w/Someone Who Travel: No Recent Infectious Disease Expo: No Recent Hopitalizations: No Immunizations Up To Date Tetanus Booster (TDap): Unknown PED Vaccines UTD: Yes Past Medical History Surgeries: Yes (RIGHT ANKLE SURGERY ; X 3) Section, Orthopedic, Tubal Ligation Respiratory: No Cardiac: Yes Hypertension Neurological: No [employer] History: Tubal Ligation Genitourinary: No Gastrointestinal: Yes Chronic Constipation, Irritable Bowel Musculoskeletal: Yes (SCIATICA; RIGHT ANKLE SURGERY FOR TORN TENDON) HEENT: No Cancer: No Psychosocial: Yes Anxiety, Depression Integumentary: No Blood Disorders: No Physical Exam Vital Signs Vital Signs - First Documented 07/10/18 13:24 Temp 98.0 Pulse 90 Resp 20 B/P (MAP) 136/92 (107) Pulse Ox 98 O2 Delivery Room Air Capillary Refill : Less Than 3 Seconds Height, Weight, BMI Height: 5'4.00" Weight: 240lbs. oz. 108.494464cl; BMI Method:Stated General Appearance: WD/WN, no apparent distress Cardiovascular: normal peripheral pulses, regular rate, rhythm, no edema, no murmur Respiratory: chest non-tender, lungs clear, normal breath sounds Ankles: right ankle limited range of motion (secondary to pain), right ankle pain (lateral aspect), right ankle soft tissue tenderness (over ATFL), right ankle swelling (trace), right ankle other (well-healed lateral incision, no erythema or inflammation noted) Neurologic/Tendon: normal sensation, normal tendon functions Neurologic/Psychiatric: no motor/sensory deficits, alert, normal mood/affect, oriented x 3 Skin: normal color, warm/dry Lymphatic: no adenopathy Procedures/Interventions Dental Procedures: Dental I&D Progress/Results/Core Measures Results/Orders My Orders Orders - ESEQUIEL PRINCE Ankle, Right, 3 Views (07/10/18 13:42) Hydrocodone/Apap 5/325 Tablet (Lortab 5 (07/10/18 13:45) Vital Signs/I&O 07/10/18 07/10/18 13:24 15:02 Temp 98.0 98.0 Pulse 90 90 Resp 20 20 B/P (MAP) 136/92 (107) 136/92 (107) Pulse Ox 98 98 O2 Delivery Room Air Blood Pressure Mean: 107 Progress Progress Note : Time: 13:45 Progress Note Patient seen and evaluated, will obtain x-ray of the right ankle, patient requesting hydrocodone for pain management. We'll administer hydrocodone/APAP 5/ 325. 1430 x-ray results reviewed with the patient, no acute findings. 4 inch Trey wrap applied, she has a Cam Walker boot that she'll resume using, crutches as needed. She requested additional hydrocodone per prescription, recommended she use Tylenol and ibuprofen. Discharge instructions and return precautions reviewed with her. All questions answered. Diagnostic Imaging Diagonstic Imaging: Xray Plain Films/CT/US/NM/MRI: ankle Comments NAME: JONH SPICER MED REC#: [id number] PT STATUS: REG ER : 1980 PHYSICIAN: ESEQUIEL PRINCE ADMIT DATE: 07/10/18/ER Draft Date of Exam:07/10/18 ANKLE, RIGHT, 3 VIEWS INDICATION: Fall with right ankle pain. TIME OF EXAMINATION: 02:22 p.m. FINDINGS: Three views of the right ankle were obtained. Alignment is normal. Ankle mortise is well maintained. Talar dome is smooth. No fracture or dislocation is identified. There is a large plantar calcaneal spur. IMPRESSION: No acute bony abnormality is detected. Dictated on workstation # [id number] Dict: 07/10/18 1426 Trans: 07/10/18 1431 [facility] [id number] Interpreted by: GLADYS RAYA MD Electronically signed by: Departure Impression Primary Impression: Ankle sprain Qualified Codes: S93.491A - Sprain of other ligament of right ankle, initial encounter Disposition: HOME, SELF-CARE Condition: Improved Departure-Patient Inst. Decision time for Depature: 14:30 Referrals: JOHNY JOHNSON MD (PCP/Family) Primary Care Physician Patient Instructions: Ankle Sprain (DC) Add. Discharge Instructions: Ice and elevate right ankle. Use crutches as needed for ambulation. Wear your postoperative boot. Alternate Tylenol 650 mg and ibuprofen 600 mg every 4 hours for pain. Follow-up with Dr. Moctezuma. Return to emergency department for new, acute emergent injuries. All discharge instructions reviewed with patient and/or family. Voiced understanding. Copy Copies To 1: HEIDI MOCTEZUMA MD Copies To 2: JOHNY JOHNSON MD, AMY ARNP Jul 10, 2018 14:45
[2018-07-10 15:02] VITALS: BP 136/92
== END 2018-07-10 15:03 | disposition home or self-care (01) ==
LOC: EDUNIT# 13:11 → ER 13:12
DX: S93.491A Sprain of other ligament of right ankle, initial encounter (principal); I10 Essential (primary) hypertension; F41.9 Anxiety disorder, unspecified; F32.9 Major depressive disorder, single episode, unspecified; F17.210 Nicotine dependence, cigarettes, uncomplicated; Z98.51 Tubal ligation status; Z87.19 Personal history of other diseases of the digestive system; Z98.890 Other specified postprocedural states; X50.1XXA Overexertion from prolonged static or awkward postures, initial encounter
CPT/HCPCS: 73610

== ENCOUNTER → 2019-12-10 | Outpatient (CLI) | payer SELFPAY ==
[~2019-12-10] MED LIST changes: -TRAZ-189; +TRZ50T
--- NOTE | 2019-12-10 12:51 | Diagnostic Imaging Report ---
INDICATION: Pain in the right axilla. TECHNIQUE: Sonographic interrogation of the area of pain in the right axilla was performed. FINDINGS: There is an area of circumscribed ovoid hypoechogenicity in the right axilla measuring 3.0 x 1.2 x 1.3 cm. This does show an echogenic hilum. This could potentially represent an enlarged lymph node versus fatty tissue. The left axilla was evaluated for comparison purposes and appears unremarkable. No fluid collections are seen. IMPRESSION: Questionable fatty lesion versus lymph node in the right axilla. Diagnostic mammography may be useful for further evaluation. Dictated by: Dictated on workstation # [id number]
== END ==
LOC: RAD 08:39
PROVIDERS: ATTEND Nurse Practitioner Family
DX: M79.621 Pain in right upper arm (principal)
CPT/HCPCS: 76604

== ENCOUNTER 2020-01-05 15:41 | Emergency (ER) | payer MEDICAID, OTHER ==
[~2020-01-05] VITALS: Ht 165.1 cm; Wt 133.1 kg
--- OUTSIDE RECORDS SUMMARY | 2020-01-05 15:52 | XMS REPORT ---
Author Author Geeta FOSTER Organization [facility] Address [address] [place] [address] Care Team Providers Care [employer] Name Role Phone MANDO FOSTER Unavailable PROBLEMS Type Condition ICD9-CM Code XOP19-VY Code Onset Dates Condition S tatus SNOMED Code Problem Vitamin D deficiency E55.9 Active 20917704 Problem Anxiety F41.9 Active 19394007 Problem Back pain of lumbar region with sciatica M54.40 Active 624888376 Problem Essential hypertension I10 Active 16919277 Problem Closed fracture of right ank le with routine healing, subsequent encounter S82.891D Active 51072907 Problem Other chronic pain G89.29 Active 8 2769723 Problem Chronic constipation K59.00 Active 683640785 Problem Bipolar II disorder, moderate, depressed, with a nxious distress F31.81 Active 67558018 Problem Chronic idiopathic constipation K59.04 Active 92970580 Problem PTSD (post-traumatic stress disorder) F43.10 Active 88724842 Problem Chronic fatigue R53.82 Active 8422 9001 Problem Constipation, unspecified constipation type K59.00 Active 61359329 Problem Fibromyalgia M79.7 Active 0961728 05 Problem Morbid obesity E66.01 Active 27294 6002 ALLERGIES No Information ENCOUNTERS Encounter Location Date Diagnosis [place] [id number] [address] December, [facility] [address] [address] Sep, [place] [address] [address] 13 Sep, 2019 Bipolar II disorder, moderate, depressed , with anxious distress F31.81 ; Anxiety F41.9 and Other residential (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.899 [place] [address] [address] Sep, [facility] [address] [address] Aug, [facility] [address] [facility] [id number] [address] [place] [address] Aug, Dependent edema R60.9 [place] [address] [address] Aug, [facility] [address] [address] Jul, [place] [address] [address] Jul, Bipolar affective disorder, current epis ode hypomanic F31.0 [place] [address] [address] Jul, [place] [address] [address] Jul, [facility] [address] [facility] [id number] [address] [place] [address] Jun, Acute sinusitis, recurrence not specified, unspecified location J01.90 [place] [address] [address] May, [place] [address] [address] May, [place] [address] [address] May, Well woman exam Z01.419 ; Chronic consti pation K59.00 ; Screening for STD (sexually transmitted disease) Z11.3 ; Screening for cervical cancer Z12.4 ; Encounter for immunization Z23 and Abnormal TSH R79.89 [place] [address] [address] Apr, Bipolar II disorder, moderate, depressed , with anxious distress F31.81 and Anxiety F41.9 [place] [address] [address] Mar, Vitamin D deficiency E55.9 [place] [address] [address] Mar, [place] [address] [address] Mar, Vitamin D deficiency E55.9 [place] [address] [address] Mar, [place] [address] [address] Mar, Essential hypertension I10 ; Plantar fas ciitis of right foot M72.2 ; Morbid obesity E66.01 and Fibromyalgia M79.7 [place] [address] [address] Feb, [place] [address] [address] Feb, Bipolar affective disorder, current epis ode hypomanic F31.0 and Anxiety F41.9 [place] [address] [address] Feb, Morbid obesity E66.01 ; Vitamin D defici ency E55.9 ; Screening for diabetes mellitus Z13.1 ; Chronic fatigue R53.82 and Fibromyalgia M79.7 [place] [address] [address] Jan, [place] [address] [address] Jan, Vitamin D deficiency E55.9 [place] [address] [address] Jan, Vitamin D deficiency E55.9 [place] [address] [address] December, [place] [address] [address] December, Fibromyalgia M79.7 ; Vitamin D deficienc y E55.9 and Morbid obesity E66.01 [place] [address] [address] Nov, [place] [address] [address] Nov, Weight loss counseling, encounter for Z7 1.3 [place] [address] [address] Nov, Morbid obesity E66.01 [place] [address] [address] Nov, Bipolar affective disorder, current epis ode hypomanic F31.0 and Anxiety F41.9 [place] [address] [address] Oct, Vitamin D deficiency E55.9 [place] [address] [address] Oct, [place] [address] [address] Oct, Morbid obesity E66.01 [place] [address] [address] Oct, Vitamin D deficiency E55.9 ; Bipolar aff ective disorder, current episode hypomanic F31.0 ; Anxiety F41.9 and 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 [place] [address] [address] Oct, [place] [address] [address] Oct, Bipolar affective disorder, current epis ode hypomanic F31.0 ; 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 and Anxiety F41.9 [place] [address] [address] Oct, Exercise counseling Z71.82 [place] [address] [address] Sep, Exercise counseling Z71.82 [place] [address] [address] Sep, Ankle sprain S93.409A [place] [address] [address] Sep, Chronic fatigue R53.82 ; Vitamin D defic iency E55.9 ; Weight loss counseling, encounter for Z71.3 ; Neck pain M54.2 ; Constipation, unspecified constipation type K59.00 and BMI 45.0-49.9, adult Z68.42 [place] [address] [address] Aug, Bipolar affective disorder, current epis ode hypomanic F31.0 ; Anxiety F41.9 and 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 [place] [address] [address] Aug, Chronic fatigue R53.82 ; Vitamin D defic iency E55.9 ; Constipation, unspecified constipation type K59.00 ; Weight loss counseling, encounter for Z71.3 ; Neck pain M54.2 ; Other chronic pain G89.29 and BMI 45.0-49.9, adult Z68.42 [place] [address] [address] Aug, Sprain of calcaneofibular ligament of ri t ankle, initial encounter S93.411A [place] [address] [address] Jul, Vitamin D deficiency E55.9 [place] [address] [address] Jul, [place] [address] [address] Jul, Other chronic pain G89.29 ; Chronic fati leon R53.82 ; Arthralgia, unspecified joint M25.50 ; Weight loss counseling, encounter for Z71.3 and BMI 45.0-49.9, adult Z68.42 [facility] [address] [address] 10 Jul, 2018 Closed fracture of right ankle with rout ine healing, subsequent encounter S82.891D [place] [address] [address] Jul, Peripheral edema R60.9 [place] [address] [address] Jun, Ankle sprain S93.409A [place] [address] [address] Jun, [place] [address] [address] Jun, Ankle sprain S93.409A [place] [address] [address] Jun, Hair loss L65.9 [place] [address] [address] Jun, Hair loss L65.9 [place] [address] [address] Jun, [facility] [address] [facility] [id number] [address] [place] [address] Jun, BMI 45.0-49.9, adult Z68.42 ; Viral illness B34.9 and Pain R52 [place] [address] [address] May, Other injury of muscle(s) and tendon(s) of peroneal muscle group at lower leg level, right leg, initial encounter S86.391A [place] [address] [address] May, Bipolar affective disorder, current epis ode hypomanic F31.0 and Anxiety F41.9 [place] [address] [address] May, [place] [address] [address] May, Essential hypertension I10 ; Swelling of lower extremity M79.89 and Peripheral edema R60.9 [facility] [address] [address] May, BMI 45.0-49.9, adult Z68.42 [place] [address] [address] 26 Apr, 2018 BMI 45.0-49.9, adult Z68.42 ; Peripheral edema R60.9 and Right ankle pain, unspecified chronicity M25.571 [facility] [address] [place] [id number] [place] [address] Apr, Skin infection L08.9 and BMI 40.0-44.9, adult Z68.41 [place] [address] [address] Feb, [place] [address] [address] Feb, [facility] [address] [place] [id number] [address] [place] [address] Jan, Back pain of lumbar region w ith sciatica M54.40 and BMI 45.0-49.9, adult Z68.42 [place] [address] [address] Jan, [place] [address] [address] Jan, Closed fracture of right ankle with rout ine healing, subsequent encounter S82.891D [place] [address] [address] Jan, [place] [address] [address] Jan, [place] [address] [address] December, Closed fracture of right ankle with rout ine healing, subsequent encounter S82.891D [place] [address] [address] December, Tendinitis of right peroneus longus tend on M76.71 [place] [address] [address] December, [place] [address] [address] December, Closed fracture of right ankle with rout ine healing, subsequent encounter S82.891D [place] [address] [address] December, [place] [address] [address] December, [place] [address] [address] December, History of fracture of right ankle Z87.8 1 [place] [address] [address] December, History of fracture of right ankle Z87.8 1 [place] [address] [address] Nov, Other closed fracture of distal end of r ight fibula with routine healing, subsequent encounter S82.831D and BMI 40.0-44.9, adult Z68.41 [facility] [address] [facility] [id number] [address] [place] [address] Oct, Sciatica of left side M54.32 [place] [address] [address] Oct, [place] [address] [address] Oct, Bipolar affective disorder, current epis ode hypomanic F31.0 [place] [address] [address] Oct, [place] [address] [address] Oct, PTSD (post-traumatic stress disorder) F4 3.10 ; Anxiety F41.9 and Bipolar II disorder, moderate, depressed, with anxious distress F31.81 [place] [address] [address] Oct, Other closed fracture of distal end of r ight fibula with routine healing, subsequent encounter S82.831D and BMI 40.0-44.9, adult Z68.41 [place] [address] [address] Oct, Bipolar affective disorder, current epis ode hypomanic F31.0 [place] [address] [address] Sep, BMI 40.0-44.9, adult Z68.41 ; Essential hypertension I10 and Other closed fracture of distal end of right fibula with routine healing, subsequent encounter S82.831D [place] [address] [address] Aug, Bipolar II disorder, moderate, depressed , with anxious distress F31.81 [place] [address] [address] Aug, Bipolar II disorder, moderate, depressed , with anxious distress F31.81 and BMI 40.0-44.9, adult Z68.41 [place] [address] [address] Aug, Other closed fracture of distal end of r ight fibula, initial encounter S82.831A [place] [address] [address] Aug, Bipolar II disorder, moderate, depressed , with anxious distress F31.81 and BMI 40.0-44.9, adult Z68.41 [place] [address] [address] Aug, [place] [address] [address] Aug, [place] [address] [address] Aug, [place] [address] [address] Aug, BMI 40.0-44.9, adult Z68.41 [place] [address] [address] Aug, Anxiety F41.9 ; PTSD (post-traumatic str ess disorder) F43.10 and Bipolar II disorder, moderate, depressed, with anxious distress F31.81 [place] [address] [address] Aug, Dental examination Z01.[address] [address] 09 Aug, 2017 BMI 40.0-44.9, adult Z68.41 ; Back pain of lumbar region with sciatica M54.40 ; Mild HTN I10 ; Anxiety F41.9 ; Screening for diabetes mellitus (DM) Z13.1 and Screening for lipid disorders Z13.220 [place] [address] [address] Aug, Anxiety F41.9 ; PTSD (post-traumatic str ess disorder) F43.10 and Bipolar II disorder, moderate, depressed, with anxious distress F31.81 [place] [address] [address] Aug, Bipolar II disorder, moderate, depressed , with anxious distress F31.81 and BMI 40.0-44.9, adult Z68.41 [place] [address] [address] Jul, [place] [address] [address] Jul, [place] [address] [address] Jul, Bipolar II disorder, moderate, depressed , with anxious distress F31.81 ; PTSD (post-traumatic stress disorder) F43.10 and Anxiety F41.9 [place] [address] [place] [id number] [place], [place] [address] 15 Jul, 2017 Bipolar II disorder, moderate, depressed , with anxious distress F31.81 [place] [address] [place] [address] Jul, Bipolar II disorder, moderate, depressed , with anxious distress F31.81 and PTSD (post-traumatic stress disorder) F43.10 [place] [address] [address] Jul, Bipolar II disorder, moderate, depressed , with anxious distress F31.81 [place] [address] [address] Jul, Bipolar II disorder, moderate, depressed , with anxious distress F31.81 ; PTSD (post-traumatic stress disorder) F43.10 and Anxiety F41.9 [facility] [place] [id number] [place] [address] Jul, Mild HTN I10 ; Pedal edema R 60.0 and BMI 40.0-44.9, adult Z68.41 [facility] [address] [place] [address] Jun, Back pain of lumbar region w ith sciatica M54.40 [facility] [address] [place] [address] Jun, Acute nasopharyngitis (commo n cold) J00 IMMUNIZATIONS No Known Immunizations SOCIAL HISTORY Never Assessed REASON FOR VISIT lab/med order PLAN OF CARE VITAL SIGNS MEDICATIONS Medication Instructions Dosage Frequency Start Date End Date Duration S tatus Ergocalciferol 95363 UNIT Orally once weekly 1 capsule Jul, 2 018 90 days Active RESULTS No Results PROCEDURES No Known procedures INSTRUCTIONS MEDICATIONS ADMINISTERED No Known Medications MEDICAL (GENERAL) HISTORY Type Description Date Medical History sciatica Medical History fluid retention, elevated blood pressure Medical History broken ankle Medical History IBS-chronic constipation Surgical History tubal ligation Surgical History colonoscopy 23 y/o Surgical History 3 c-sections Surgical History surgery for c-seciton complication 1x, a bdomnial wound Surgical History surgery for torn ligament in rt ankle Hospitalization History Psychiatric inpatient treatm ent multiple times in teenage years, last one age 19 Hospitalization History surgeries, Hospitalization History [facility] for sp[facility] 2018
--- OUTSIDE RECORDS SUMMARY | 2020-01-05 15:53 | XMS REPORT ---
Author Author Geeta FOSTER [facility] Address [address] [place] [address] Care Team Providers Care Director Of Dementia Operations Name Role Phone MANDO FOSTER Unavailable PROBLEMS Type Condition ICD9-CM Code [id number] Code Onset Dates Condition S tatus SNOMED Code Problem Anxiety F41.9 Active 75867127 Problem Back pain of lumbar region with sciatica M54.40 Active 095702570 Problem Other chronic pain G89.29 Active 8 4315290 Problem Chronic fatigue R53.82 Active 8422 9001 Problem Bipolar II disorder, moderate, depressed, with a nxious distress F31.81 Active 04413194 Problem PTSD (post-traumatic stress disorder) F43.10 Active 98030654 Problem Closed fracture of right ank le with routine healing, subsequent encounter S82.891D Active 51264402 Problem Essential hypertension I10 Active 87405485 ALLERGIES No Information ENCOUNTERS Encounter Location Date Diagnosis [facility] [id number] [place] [id number] Aug, [facility] [address] [place] [phone] Jul, [facility] [id number] [place] [id number] 14 Jul, 2018 [facility] [address] [place] [address] Jul, Other chronic pain G89.29 ; Chronic fatigue R53.82 ; Arthralgia, unspecified joint M25.50 and Weight loss counseling, encounter for Z71.3 [facility] [id number] [place] [id number] Jul, Closed fracture of right ank le with routine healing, subsequent encounter S82.891D [place] [address] [facility] [id number] [address] [place] [phone] Jul, Peripheral edema R60.9 [facility] [address] [facility] [id number] [address] [place] [address] Jun, Ankle sprain S93.409A [facility] [address] [facility] [id number] [address] [place] [phone] Jun, [facility] [address] [facility] [id number] [address] [place] [phone] Jun, [facility] [address] [facility] [id number] [address] [place] [phone] Jun, Hair loss L65.9 [facility] [address] [facility] [id number] [address] [place] [phone] Jun, Hair loss L65.9 [facility] [address] [place] [phone] Jun, [facility] [id number] [place] [phone] Jun, BMI 45.0-49.9, adult Z68.42 ; Viral illness B34.9 and Pain R52 [facility] [address] [facility] [id number] [address] [place] [phone] May, Other injury of muscle(s) an d tendon(s) of peroneal muscle group at lower leg level, right leg, initial encounter S86.391A [facility] [id number] [place] [address] May, Bipolar affective disorder, current episode hypomanic F31.0 and Anxiety F41.9 [place] [address] [facility] [id number] [address] [place] [id number] May, [facility] [address] [facility] [id number] [address] [place] [address] May, Essential hypertension I10 ; Swelling of lower extremity M79.89 and Peripheral edema R60.9 [facility] [address] [id number] [address] [place] [address] May, BMI 45.0-49.9, adult Z68.42 [facility] [address] [id number] [address] [place] [id number] 26 Apr, 2018 BMI 45.0-49.9, adult Z68.42 ; Peripheral edema R60.9 and Right ankle pain, unspecified chronicity M25.571 [facility] [address] [id number] [address] [place] [phone] 25 Apr, 2018 Skin infection L08.9 and BMI 40.0-44.9, adult Z68.41 [place] [address] [facility] [id number] [address] [place] [phone] Feb, [place] [address] [place] [id number] [place] [phone] Feb, [facility] [address] [facility] [id number] [address] [place] [phone] Jan, Back pain of lumbar region w ith sciatica M54.40 and BMI 45.0-49.9, adult Z68.42 [facility] [address] [facility] [id number] [address] [place] [phone] Jan, [place] [address] [facility] [id number] [address] [place] [address] Jan, Closed fracture of right ank le with routine healing, subsequent encounter S82.891D [facility] [address] [id number] [address] [place] [phone] Jan, [place] [address] [facility] [id number] [address] [place] [address] Jan, [facility] [address] [facility] [id number] [address] [place] [phone] December, Closed fracture of right ank le with routine healing, subsequent encounter S82.891D [place] [address] [id number] [address] [place] [phone] December, Tendinitis of right peroneus longus tendon M76.71 [facility] [address] [id number] [address] [place] [address] December, [facility] [address] [id number] [address] [place] [address] December, Closed fracture of right ank le with routine healing, subsequent encounter S82.891D [facility] [address] [id number] [address] [place] [phone] December, [facility] [address] [id number] [address] [place] [address] December, [facility] [address] [id number] [address] [place] [address] December, History of fracture of right ankle Z87.81 [place] [address] [id number] [address] [place] [address] December, History of fracture of right ankle Z87.81 [facility] [address] [id number] [address] [place] [id number] Nov, Other closed fracture of dis cierra end of right fibula with routine healing, subsequent encounter S82.831D and BMI 40.0-44.9, adult Z68.41 [facility] [address] [id number] [address] [place] [address] Oct, Sciatica of left side M54.32 [facility] [address] [id number] [address] [place] [address] Oct, [facility] [address] [facility] [id number] [address] [place] [phone] Oct, Bipolar affective disorder, current episode hypomanic F31.0 [facility] [address] [facility] [id number] [address] [place] [address] Oct, [facility] [id number] [place] [address] Oct, PTSD (post-traumatic stress disorder) F43.10 ; Anxiety F41.9 and Bipolar II disorder, moderate, depressed, with anxious distress F31.81 [place] [address] [address] Oct, Other closed fracture of dis cierra end of right fibula with routine healing, subsequent encounter S82.831D and BMI 40.0-44.9, adult Z68.41 [place] [address] [address] Oct, Bipolar affective disorder, current episode hypomanic F31.0 [place] [address] [address] Sep, BMI 40.0-44.9, adult Z68.41 ; Essential hypertension I10 and Other closed fracture of distal end of right fibula with routine healing, subsequent encounter S82.831D [place] [address] [address] Aug, Bipolar II disorder, moderat e, depressed, with anxious distress F31.81 [place] [address] [address] Aug, Bipolar II disorder, moderat e, depressed, with anxious distress F31.81 and BMI 40.0-44.9, adult Z68.41 [place] [address] [id number] [place] [address] Aug, Other closed fracture of dis cierra end of right fibula, initial encounter S82.831A [place] [address] [address] Aug, Bipolar II disorder, moderat e, depressed, with anxious distress F31.81 and BMI 40.0-44.9, adult Z68.41 [place] [address] [address] Aug, [place] [address] [facility] [id number] [address] [place] [phone] Aug, [place] [address] [facility] [id number] [address] [place] [address] Aug, [place] [address] [facility] [id number] [address] [place] [address] Aug, BMI 40.0-44.9, adult Z68.41 [place] [address] [id number] [place] [address] Aug, Anxiety F41.9 ; PTSD (post-t raumatic stress disorder) F43.10 and Bipolar II disorder, moderate, depressed, with anxious distress F31.81 [place] [address] [place] [id number] [place] [id number] 11 Aug, 2017 Dental examination Z01.20 [place] [id number] [place] [address] 09 Aug, 2017 BMI 40.0-44.9, adult Z68.41 ; Back pain of lumbar region with sciatica M54.40 ; Mild HTN I10 ; Anxiety F41.9 ; Screening for diabetes mellitus (DM) Z13.1 and Screening for lipid disorders Z13.220 [place] [address] [place] [id number] [place] [id number] 04 Aug, 2017 Anxiety F41.9 ; PTSD (post-t raumatic stress disorder) F43.10 and Bipolar II disorder, moderate, depressed, with anxious distress F31.81 [place] [address] [facility] [id number] [address] [place] [id number] 03 Aug, 2017 Bipolar II disorder, moderat e, depressed, with anxious distress F31.81 and BMI 40.0-44.9, adult Z68.41 [place] [address] [facility] [id number] [address] [place] [address] Jul, [place] [address] [place] [id number] [place] [phone] Jul, [place] [address] [id number] [place] [address] Jul, Bipolar II disorder, moderat e, depressed, with anxious distress F31.81 ; PTSD (post-traumatic stress disorder) F43.10 and Anxiety F41.[address] [address] Jul, Bipolar II disorder, moderat e, depressed, with anxious distress F31.[address] [address] Jul, Bipolar II disorder, moderat e, depressed, with anxious distress F31.81 and PTSD (post-traumatic stress disorder) F43.[address] [address] Jul, Bipolar II disorder, moderat e, depressed, with anxious distress F31.[address] [address] Jul, Bipolar II disorder, moderat e, depressed, with anxious distress F31.81 ; PTSD (post-traumatic stress disorder) F43.10 and Anxiety F41.9 [facility] [place] [address] [address] Jul, Mild HTN I10 ; Pedal edema R 60.0 and BMI 40.0-44.9, adult Z68.41 [facility] [address] [address] Jun, Back pain of lumbar region w ith sciatica M54.40 [facility] [address] [address] 07 Jun, 2017 Acute nasopharyngitis (commo n cold) J00 IMMUNIZATIONS [...]
--- OUTSIDE RECORDS SUMMARY | 2020-01-05 15:53 | XMS REPORT ---
Author Author Geeta FOSTER [facility] Address [address] [place] [address] Care Team Providers Care Public Policy Associate Name Role Phone MANDO FOSTER Unavailable PROBLEMS Type Condition ICD9-CM Code ANE77-DJ Code Onset Dates Condition S tatus SNOMED Code Problem Anxiety F41.9 Active 60694427 Problem PTSD (post-traumatic stress disorder) F43.10 Active 92553128 Problem Bipolar II disorder, moderate, depressed, with a nxious distress F31.81 Active 38773767 Problem Constipation, unspecified constipation type K59.00 Active 54378797 Problem Back pain of lumbar region with sciatica M54.40 Active 575399577 Problem Fibromyalgia M79.7 Active 4054089 05 Problem Vitamin D deficiency E55.9 Active 63302768 Problem Essential hypertension I10 Active 05851389 Problem Closed fracture of right ank le with routine healing, subsequent encounter S82.891D Active 28449899 Problem Chronic fatigue R53.82 Active 8422 9001 Problem Other chronic pain G89.29 Active 8 [id number] ALLERGIES No Information ENCOUNTERS Encounter Location Date Diagnosis [facility] [address] [facility] [id number] [address] [place] [id number] Apr, [facility] [address] [facility] [id number] [address] [place] [id number] Mar, [facility] [address] [facility] [id number] [address] [place] [phone] Feb, [facility] [address] [place] [id number] [address] [place] [phone] Feb, Bipolar affective disorder, current episode hypomanic F31.0 and Anxiety F41.9 [facility] [address] [place] [id number] [address] [place] [id number] Feb, Morbid obesity E66.01 ; Gayathri min D deficiency E55.9 ; Screening for diabetes mellitus Z13.1 ; Chronic fatigue R53.82 and Fibromyalgia M79.7 [facility] [address] [facility] [id number] [address] [place] [phone] Jan, [facility] [address] [facility] [id number] [address] [place] [phone] Jan, Vitamin D deficiency E55.9 [place] [address] [facility] [id number] [address] [place] [id number] Jan, Vitamin D deficiency E55.9 [place] [address] [facility] [id number] [address] [place] [phone] December, [place] [address] [facility] [id number] [address] [place] [phone] December, Fibromyalgia M79.7 ; Vitamin D deficiency E55.9 and Morbid obesity E66.01 [place] [address] [facility] [id number] [address] [place] [phone] Nov, [place] [address] [facility] [id number] [address] [place] [phone] Nov, Weight loss counseling, enco maite for Z71.3 [place] [address] [facility] [id number] [address] [place] [id number] Nov, Morbid obesity E66.01 [place] [address] [facility] [id number] [address] [place] [phone] Nov, Bipolar affective disorder, current episode hypomanic F31.0 and Anxiety F41.9 [place] [address] [facility] [id number] [address] [place] [phone] Oct, Vitamin D deficiency E55.9 [place] [address] [facility] [id number] [address] [place] [id number] Oct, [place] [address] [facility] [id number] [address] [place] [phone] Oct, Morbid obesity E66.01 [place] [address] [facility] [id number] [address] [place] [phone] Oct, Vitamin D deficiency E55.9 ; Bipolar affective disorder, current episode hypomanic F31.0 ; Anxiety F41.9 and Other salvage determiner (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.899 [place] [address] [facility] [id number] [address] [place] [phone] Oct, [place] [address] [place] [id number] [place] [phone] Oct, Bipolar affective disorder, current episode hypomanic F31.0 ; Other longterm (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.899 and Anxiety F41.9 [place] [address] [place] [id number] [address] [place] [phone] Oct, Exercise counseling Z71.82 [place] [address] [place] [id number] [address] [place] [id number] Sep, Exercise counseling Z71.82 [place] [address] [place] [id number] [address] [place] [id number] Sep, Ankle sprain S93.409A [place] [address] [place] [id number] [address] [place] [id number] Sep, Chronic fatigue R53.82 ; Vit lee D deficiency E55.9 ; Weight loss counseling, encounter for Z71.3 ; Neck pain M54.2 ; Constipation, unspecified constipation type K59.00 and BMI 45.0-49.9, adult Z68.42 [place] [address] [place] [id number] [address] [place] [phone] Aug, Bipolar affective disorder, current episode hypomanic F31.0 ; Anxiety F41.9 and Other longterm (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.899 [place] [address] [place] [id number] [address] [place] [phone] Aug, Chronic fatigue R53.82 ; Vit lee D deficiency E55.9 ; Constipation, unspecified constipation type K59.00 ; Weight loss counseling, encounter for Z71.3 ; Neck pain M54.2 ; Other chronic pain G89.29 and BMI 45.0-49.9, adult Z68.42 [place] [address] [place] [id number] [address] [place] [id number] 17 Aug, 2018 Sprain of calcaneofibular li gament of right ankle, initial encounter S93.411A [place] [id number] [place] [id number] Jul, Vitamin D deficiency E55.9 [place] [address] [place] [id number] [place] [address] Jul, [place] [address] [address] Jul, Other chronic pain G89.29 ; Chronic fatigue R53.82 ; Arthralgia, unspecified joint M25.50 ; Weight loss counseling, encounter for Z71.3 and BMI 45.0-49.9, adult Z68.42 [place] [address] [place] [id number] [address] [place] [id number] 10 Jul, 2018 Closed fracture of right ank le with routine healing, subsequent encounter S82.891D [place] [address] [place] [id number] [address] [place] [address] 03 Jul, 2018 Peripheral edema R60.9 [place] [address] [place] [id number] [address] [place] [id number] Jun, Ankle sprain S93.409A [place] [address] [place] [id number] [address] [place] [phone] Jun, [place] [address] [place] [id number] [place] [phone] Jun, Ankle sprain S93.409A [place] [address] [place] [id number] [address] [place] [phone] Jun, Hair loss L65.9 [place] [address] [place] [id number] [address] [place] [phone] Jun, Hair loss L65.9 [place] [address] [id number] Jun, [facility] [address] [place] [id number] [place] [phone] Jun, BMI 45.0-49.9, adult Z68.42 ; Viral illness B34.9 and Pain R52 [place] [address] [address] May, Other injury of muscle(s) an d tendon(s) of peroneal muscle group at lower leg level, right leg, initial encounter S86.391A [place] [address] [address] May, Bipolar affective disorder, current episode hypomanic F31.0 and Anxiety F41.9 [place] [address] [address] May, [place] [address] [address] May, Essential hypertension I10 ; Swelling of lower extremity M79.89 and Peripheral edema R60.9 [place] [address] [address] May, BMI 45.0-49.9, adult Z68.42 [place] [address] [address] 26 Apr, 2018 BMI 45.0-49.9, adult Z68.42 ; Peripheral edema R60.9 and Right ankle pain, unspecified chronicity M25.571 [facility] [address] [place] [id number] [address] [place] [id number] Apr, Skin infection L08.9 and BMI 40.0-44.9, adult Z68.41 [place] [address] [place] [address] Feb, [facility] [address] [id number] [address] [place] [id number] Feb, [facility] [address] [id number] [address] [place] [phone] Jan, Back pain of lumbar region w ith sciatica M54.40 and BMI 45.0-49.9, adult Z68.42 [facility] [address] [id number] [address] [place] [id number] Jan, [facility] [address] [id number] [address] [place] [id number] Jan, Closed fracture of right ank le with routine healing, subsequent encounter S82.891D [facility] [address] [id number] [address] [place] [phone] Jan, [facility] [address] [id number] [address] [place] [id number] Jan, [facility] [address] [id number] [address] [place] [id number] December, Closed fracture of right ank le with routine healing, subsequent encounter S82.891D [facility] [address] [id number] [address] [place] [id number] December, Tendinitis of right peroneus longus tendon M76.71 [facility] [address] [id number] [address] [place] [phone] December, [facility] [address] [id number] [address] [place] [id number] December, Closed fracture of right ank le with routine healing, subsequent encounter S82.891D [facility] [address] [id number] [address] [place] [phone] December, [facility] [address] [id number] [address] [place] [id number] December, [place] [address] [id number] [address] [place] [id number] December, History of fracture of right ankle Z87.81 [place] [address] [facility] [id number] [address] [place] [address] December, History of fracture of right ankle Z87.81 [facility] [address] [facility] [id number] [address] [place] [address] Nov, Other closed fracture of dis cierra end of right fibula with routine healing, subsequent encounter S82.831D and BMI 40.0-44.9, adult Z68.41 [facility] [address] [id number] [address] [place] [address] Oct, Sciatica of left side M54.32 [place] [address] [place] [id number] [address] [place] [phone] Oct, [place] [address] [facility] [id number] [address] [place] [phone] Oct, Bipolar affective disorder, current episode hypomanic F31.0 [place] [address] [place] [id number] [address] [place] [id number] Oct, [place] [address] [place] [id number] [address] [place] [phone] Oct, PTSD (post-traumatic stress disorder) F43.10 ; Anxiety F41.9 and Bipolar II disorder, moderate, depressed, with anxious distress F31.81 [place] [address] [place] [id number] [address] [place] [address] Oct, Other closed fracture of dis cierra end of right fibula with routine healing, subsequent encounter S82.831D and BMI 40.0-44.9, adult Z68.41 [facility] [address] [facility] [id number] [address] [place] [phone] Oct, Bipolar affective disorder, current episode hypomanic F31.0 [place] [address] [place] [id number] [address] [place] [phone] Sep, BMI 40.0-44.9, adult Z68.41 ; Essential hypertension I10 and Other closed fracture of distal end of right fibula with routine healing, subsequent encounter S82.831D [facility] [address] [id number] [address] [place] [phone] Aug, Bipolar II disorder, moderat e, depressed, with anxious distress F31.81 [place] [address] [facility] [id number] [address] [place] [id number] Aug, Bipolar II disorder, moderat e, depressed, with anxious distress F31.81 and BMI 40.0-44.9, adult Z68.41 [place] [address] [facility] [id number] [address] [place] [id number] Aug, Other closed fracture of dis cierra end of right fibula, initial encounter S82.831A [place] [address] [place] [id number] [address] [place] [id number] Aug, Bipolar II disorder, moderat e, depressed, with anxious distress F31.81 and BMI 40.0-44.9, adult Z68.41 [place] [address] [facility] [id number] [address] [place] [phone] Aug, [place] [address] [place] [id number] [address] [place] [phone] Aug, [place] [address] [place] [id number] [address] [place] [id number] Aug, [place] [address] [facility] [id number] [address] [place] [id number] Aug, BMI 40.0-44.9, adult Z68.41 [place] [address] [place] [id number] [address] [place] [address] Aug, Anxiety F41.9 ; PTSD (post-t raumatic stress disorder) F43.10 and Bipolar II disorder, moderate, depressed, with anxious distress F31.81 [place] [address] [place] [id number] [address] [place] [id number] 11 Aug, 2017 Dental examination Z01.20 [place] [address] [place] [id number] [address] [place] [address] 09 Aug, 2017 BMI 40.0-44.9, adult Z68.41 ; Back pain of lumbar region with sciatica M54.40 ; Mild HTN I10 ; Anxiety F41.9 ; Screening for diabetes mellitus (DM) Z13.1 and Screening for lipid disorders Z13.220 [place] [address] [facility] [id number] [address] [place] [id number] 04 Aug, 2017 Anxiety F41.9 ; PTSD (post-t raumatic stress disorder) F43.10 and Bipolar II disorder, moderate, depressed, with anxious distress F31.81 [place] [address] [place] [id number] [address] [place] [id number] Aug, Bipolar II disorder, moderat e, depressed, with anxious distress F31.81 and BMI 40.0-44.9, adult Z68.41 [place] [id number] [place] [id number] Jul, [place] [address] [place] [id number] [address] [place] [phone] Jul, [place] [address] [place] [id number] [address] [place] [id number] Jul, Bipolar II disorder, moderat e, depressed, with anxious distress F31.81 ; PTSD (post-traumatic stress disorder) F43.10 and Anxiety F41.9 [place] [address] [facility] [id number] [address] [place] [phone] 15 Jul, 2017 Bipolar II disorder, moderat e, depressed, with anxious distress F31.81 [place] [address] [facility] [id number] [address] [place] [id number] Jul, Bipolar II disorder, moderat e, depressed, with anxious distress F31.81 and PTSD (post-traumatic stress disorder) F43.10 [place] [address] [place] [phone] 11 Jul, 2017 Bipolar II disorder, moderat e, depressed, with anxious distress F31.81 [facility] [address] [place] [address] 06 Jul, 2017 Bipolar II disorder, moderat e, depressed, with anxious distress F31.81 ; PTSD (post-traumatic stress disorder) F43.10 and Anxiety F41.9 [facility] W[facility] IN [facility] [address] [place] [address] Jul, Mild HTN I10 ; Pedal edema R 60.0 and BMI 40.0-44.9, adult Z68.41 [facility] WALK IN [address] [address] Jun, Back pain of lumbar region w ith sciatica M54.40 [facility] IN [address] [address] Jun, Acute nasopharyngitis (commo n cold) J00 IMMUNIZATIONS No Known Immunizations SOCIAL HISTORY Never Assessed REASON FOR VISIT weight check PLAN OF CARE VITAL SIGNS Height 64 in 2018-10-30 Weight 264.6 lbs 2018-10-30 BMI 45.41 kg/m2 2018-10-30 MEDICATIONS Unknown Medications RESULTS No Results PROCEDURES No Known procedures INSTRUCTIONS MEDICATIONS ADMINISTERED No Known Medications MEDICAL (GENERAL) HISTORY Type Description Date Medical History sciatica Medical History fluid retention, elevated blood pressure Medical History broken ankle Medical History IBS Surgical History tubal ligation Surgical History colonoscopy [...]
--- OUTSIDE RECORDS SUMMARY | 2020-01-05 15:53 | XMS REPORT ---
Author Author Geeta BENDER Organization [facility] Address [address] [place] [address] Care Team Providers Care Operators Teacher Name Role Phone GAGAN BENDER Unavailable PROBLEMS Type Condition ICD9-CM Code SBD28-YA Code Onset Dates Condition S tatus SNOMED Code Problem Mild HTN I10 Active 19021149 Problem PTSD (post-traumatic stress disorder) F43.10 Active 96703147 Problem Anxiety F41.9 Active 74793718 Problem Back pain of lumbar region with sciatica M54.40 Active 398135698 Problem Closed fracture of right ank le with routine healing, subsequent encounter S82.891D Active 99992884 Problem Sciatica of left side M54.32 Active 83749145 Problem Bipolar affective disorder, current episode hypomanic F31.0 Active 25285907 Problem Bipolar II disorder, moderate, depressed, with a nxious distress F31.81 Active 54053436 Problem BMI 40.0-44.9, adult Z68.41 Active 796321668 Problem Essential hypertension I10 Active 28665405 ALLERGIES No Known Allergies ENCOUNTERS Encounter Location Date Diagnosis [facility] [address] [facility] [id number] [address] [place] [address] Jul, [facility] [address] [facility] [id number] [address] [place] [address] Jul, [facility] [address] [facility] [id number] [address] [place] [address] Jul, Peripheral edema R60.9 [facility] [address] [facility] [id number] [address] [place] [address] Jun, Ankle sprain S93.409A [facility] [address] [facility] [id number] [address] [place] [address] Jun, [facility] [address] [facility] [id number] [address] [place] [address] Jun, [facility] [address] [facility] [id number] [address] [place] [address] Jun, Hair loss L65.9 [facility] [address] [facility] [id number] [address] [place] [address] Jun, Hair loss L65.9 [facility] [address] [place] [id number] [place] [phone] Jun, [facility] [address] [facility] [id number] [address] [place] [address] Jun, BMI 45.0-49.9, adult Z68.42 ; Viral illness B34.9 and Pain R52 [place] [address] [facility] [id number] [address] [place] [address] May, Other injury of muscle(s) an d tendon(s) of peroneal muscle group at lower leg level, right leg, initial encounter S86.391A [facility] [address] [place] [address] May, Bipolar affective disorder, current episode hypomanic F31.0 and Anxiety F41.9 [facility] [address] [facility] [id number] [address] [place] [address] May, [facility] [address] [address] May, Essential hypertension I10 ; Swelling of lower extremity M79.89 and Peripheral edema R60.9 [facility] [address] [facility] [id number] [address] [place] [address] May, BMI 45.0-49.9, adult Z68.42 [facility] [address] [facility] [id number] [address] [place] [address] Apr, BMI 45.0-49.9, adult Z68.42 ; Peripheral edema R60.9 and Right ankle pain, unspecified chronicity M25.571 [facility] [address] [id number] [address] [place] [address] Apr, Skin infection L08.9 and BMI 40.0-44.9, adult Z68.41 [facility] [address] [id number] [address] [place] [address] Feb, [facility] [address] [facility] [id number] [address] [place] [address] Feb, [facility] [address] [id number] [address] [place] [address] Jan, Back pain of lumbar region w ith sciatica M54.40 and BMI 45.0-49.9, adult Z68.42 [facility] [address] [id number] [address] [place] [address] Jan, [facility] [address] [facility] [id number] [address] [place] [address] Jan, Closed fracture of right ank le with routine healing, subsequent encounter S82.891D [facility] [address] [id number] [address] [place] [address] Jan, [facility] [address] [facility] [id number] [address] [place] [address] Jan, [facility] [address] [id number] [address] [place] [address] December, Closed fracture of right ank le with routine healing, subsequent encounter S82.891D [facility] [address] [id number] [address] [place] [address] December, Tendinitis of right peroneus longus tendon M76.71 [facility] [address] [id number] [address] [place] [address] December, [facility] [address] [facility] [id number] [address] [place] [address] December, Closed fracture of right ank le with routine healing, subsequent encounter S82.891D [facility] [address] [id number] [address] [place] [address] December, [facility] [address] [facility] [id number] [address] [place] [address] December, [facility] [address] [facility] [id number] [address] [place] [address] December, History of fracture of right ankle Z87.81 [place] [address] [facility] [id number] [address] [place] [address] December, History of fracture of right ankle Z87.81 [place] [address] [id number] [address] [place] [address] Nov, Other closed fracture of dis cierra end of right fibula with routine healing, subsequent encounter S82.831D and BMI 40.0-44.9, adult Z68.41 [facility] [address] [id number] [address] [place] [address] Oct, Sciatica of left side M54.32 [place] [address] [facility] [id number] [address] [place] [address] Oct, [place] [address] [facility] [id number] [address] [place] [address] Oct, Bipolar affective disorder, current episode hypomanic F31.0 [place] [address] [facility] [id number] [address] [place] [address] Oct, [facility] [address] [facility] [id number] [address] [place] [address] Oct, PTSD (post-traumatic stress disorder) F43.10 ; Anxiety F41.9 and Bipolar II disorder, moderate, depressed, with anxious distress F31.81 [facility] [address] [facility] [id number] [address] [place] [address] Oct, Other closed fracture of dis cierra end of right fibula with routine healing, subsequent encounter S82.831D and BMI 40.0-44.9, adult Z68.41 [place] [address] [place] [id number] [place] [address] Oct, Bipolar affective disorder, current episode hypomanic F31.0 [place] [address] [facility] [id number] [address] [place] [address] Sep, BMI 40.0-44.9, adult Z68.41 ; Essential hypertension I10 and Other closed fracture of distal end of right fibula with routine healing, subsequent encounter S82.831D [place] [address] [place] [id number] [place] [address] Aug, Bipolar II disorder, moderat e, depressed, with anxious distress F31.81 [place] [address] [place] [id number] [place] [address] Aug, Bipolar II disorder, moderat e, depressed, with anxious distress F31.81 and BMI 40.0-44.9, adult Z68.41 [place] [address] [place] [id number] [place] [address] Aug, Other closed fracture of dis cierra end of right fibula, initial encounter S82.831A [place] [address] [place] [id number] [place] [address] Aug, Bipolar II disorder, moderat e, depressed, with anxious distress F31.81 and BMI 40.0-44.9, adult Z68.41 [place] [address] [place] [id number] [place] [address] Aug, [place] [address] [place] [id number] [place] [address] Aug, [place] [address] [place] [id number] [place] [address] Aug, [place] [address] [place] [id number] [place] [address] Aug, BMI 40.0-44.9, adult Z68.41 [place] [address] [place] [id number] [address] [place] [address] Aug, Anxiety F41.9 ; PTSD (post-t raumatic stress disorder) F43.10 and Bipolar II disorder, moderate, depressed, with anxious distress F31.81 [place] [address] [id number] [address] [place] [address] 11 Aug, 2017 Dental examination Z01.20 [place] [address] [facility] [id number] [address] [place] [address] 09 Aug, 2017 BMI 40.0-44.9, adult Z68.41 ; Back pain of lumbar region with sciatica M54.40 ; Mild HTN I10 ; Anxiety F41.9 ; Screening for diabetes mellitus (DM) Z13.1 and Screening for lipid disorders Z13.220 [place] [address] [facility] [id number] [address] [place] [address] 04 Aug, 2017 Anxiety F41.9 ; PTSD (post-t raumatic stress disorder) F43.10 and Bipolar II disorder, moderate, depressed, with anxious distress F31.81 [place] [address] [id number] [address] [place] [address] 03 Aug, 2017 Bipolar II disorder, moderat e, depressed, with anxious distress F31.81 and BMI 40.0-44.9, adult Z68.41 [place] [address] [id number] [address] [place] [address] Jul, [place] [address] [id number] [address] [place] [address] Jul, [place] [address] [id number] [address] [place] [address] Jul, Bipolar II disorder, moderat e, depressed, with anxious distress F31.81 ; PTSD (post-traumatic stress disorder) F43.10 and Anxiety F41.9 [place] [address] [id number] [address] [place] [phone] 15 Jul, 2017 Bipolar II disorder, moderat e, depressed, with anxious distress F31.81 [facility] [address] [facility] [id number] [address] [place] [address] Jul, Bipolar II disorder, moderat e, depressed, with anxious distress F31.81 and PTSD (post-traumatic stress disorder) F43.10 [facility] [id number] [place] [address] Jul, Bipolar II disorder, moderat e, depressed, with anxious distress F31.81 [facility] [address] [facility] [id number] [address] [place] [address] Jul, Bipolar II disorder, moderat e, depressed, with anxious distress F31.81 ; PTSD (post-traumatic stress disorder) F43.10 and Anxiety F41.9 [facility] [address] [address] Jul, Mild HTN I10 ; Pedal edema R 60.0 and BMI 40.0-44.9, adult Z68.41 [facility] [address] [place] [id number] [address] [place] [address] Jun, Back pain of lumbar region w ith sciatica M54.40 [facility] [address] [place] [address] 07 Jun, 2017 Acute nasopharyngitis (commo n cold) J00 IMMUNIZATIONS No Known Immunizations SOCIAL HISTORY Never Assessed REASON FOR VISIT sprained ankle 07/10/18 Amirah FALCON, pain / swelling/ bruising- Same ankle as th e fracture - [facility] put back in boot Amirah FALCON, needs referrel to Dr [place] - Angel belcher MA PLAN OF CARE Activity Details Follow Up prn Reason: VITAL SIGNS Height 64 in 2018-07-12 Weight 274.7 lbs 2018-07-12 Temperature 97.5 degrees Fahrenheit 2018-07-12 Heart Rate 97 bpm 2018-07-12 Respiratory Rate 20 2018-07-12 BMI 47.15 kg/m2 2018-07-12 Blood pressure systolic 118 mmHg 2018-07-12 Blood pressure diastolic 78 mmHg 2018-07-12 MEDICATIONS Medication Instructions Dosage Frequency Start Date End Date Duration S tatus Vraylar 1.5 MG Orally Once a day 1 capsule 24h May, 14 days Not-Taking Gabapentin 300 MG Orally Once a day at bedtime 1 capsule May, 30 day(s) Active Meloxicam 15 mg Orally Once a day 1 tablet 24h Jun, 5 D 2017 30 day(s) Active Zofran ODT 4 MG Orally every 4 hrs 1 tablet on the tong ue and allow to dissolve as needed 4h Jun, 5 days Active Hydrochlorothiazide 12.5 MG Orally Once a day 1 tablet in the morni ng 24h Apr, 30 day(s) Active Vraylar 3 MG Orally Once a day 1 capsule 24h May, 30 day(s) Active RESULTS No Results PROCEDURES No Known [...]
--- OUTSIDE RECORDS SUMMARY | 2020-01-05 15:53 | XMS REPORT ---
Author Author Geeta BENDER Organization [facility] Address [address] [place] [address] Care Team Providers Care Second Butler Name Role Phone GAGAN BENDER Unavailable PROBLEMS Type Condition ICD9-CM Code VCX36-HL Code Onset Dates Condition S tatus SNOMED Code Problem Mild HTN I10 Active 34886221 Problem PTSD (post-traumatic stress disorder) F43.10 Active 23009260 Problem Anxiety F41.9 Active 54401242 Problem Back pain of lumbar region with sciatica M54.40 Active 968547900 Problem Closed fracture of right ank le with routine healing, subsequent encounter S82.891D Active 55158633 Problem Sciatica of left side M54.32 Active 85700424 Problem Bipolar affective disorder, current episode hypomanic F31.0 Active 48124983 Problem Bipolar II disorder, moderate, depressed, with a nxious distress F31.81 Active 63464526 Problem BMI 40.0-44.9, adult Z68.41 Active 332591441 Problem Essential hypertension I10 Active [id number] ALLERGIES No Information ENCOUNTERS Encounter Location Date Diagnosis [facility] [address] [id number] [address] [place] [id number] Jul, [facility] [address] [place] [id number] [address] [place] [address] 14 Jul, 2018 [facility] [address] [id number] [address] [place] [address] Jul, Closed fracture of right ank le with routine healing, subsequent encounter S82.891D [facility] [address] [place] [id number] [address] [place] [phone] 03 Jul, 2018 Peripheral edema R60.9 [facility] [address] [id number] [address] [place] [address] 29 Nov, 2018 Ankle sprain S93.409A [facility] [address] [id number] [address] [place] [address] Jun, [facility] [address] [id number] [address] [place] [address] Jun, [facility] [address] [id number] [address] [place] [address] Jun, Hair loss L65.9 [facility] [address] [id number] [address] [place] [address] Jun, Hair loss L65.9 [facility] [address] [id number] [address] [place] [address] Jun, [facility] [address] [id number] [address] [place] [address] Jun, BMI 45.0-49.9, adult Z68.42 ; Viral illness B34.9 and Pain R52 [place] [id number] [place] [address] May, Other injury of muscle(s) an d tendon(s) of peroneal muscle group at lower leg level, right leg, initial encounter S86.391A [place] [address] [place] [id number] [address] [place] [address] May, Bipolar affective disorder, current episode hypomanic F31.0 and Anxiety F41.9 [place] [address] [place] [id number] [address] [place] [address] May, [place] [address] [place] [id number] [address] [place] [address] May, Essential hypertension I10 ; Swelling of lower extremity M79.89 and Peripheral edema R60.9 [place] [address] [place] [id number] [address] [place] [address] May, BMI 45.0-49.9, adult Z68.42 [facility] [address] [place] [id number] [address] [place] [address] Apr, BMI 45.0-49.9, adult Z68.42 ; Peripheral edema R60.9 and Right ankle pain, unspecified chronicity M25.571 [facility] [address] [id number] [address] [place] [address] Apr, Skin infection L08.9 and BMI 40.0-44.9, adult Z68.41 [facility] [address] [id number] [address] [place] [address] Feb, [facility] [address] [id number] [address] [place] [address] Feb, [facility] [address] [id number] [address] [place] [address] Jan, Back pain of lumbar region w ith sciatica M54.40 and BMI 45.0-49.9, adult Z68.42 [place] [address] [facility] [id number] [address] [place] [address] Jan, [facility] [address] [id number] [address] [place] [address] Jan, Closed fracture of right ank le with routine healing, subsequent encounter S82.891D [facility] [address] [id number] [address] [place] [address] Jan, [facility] [address] [id number] [address] [place] [address] Jan, [facility] [address] [id number] [address] [place] [address] December, Closed fracture of right ank le with routine healing, subsequent encounter S82.891D [place] [address] [facility] [id number] [address] [place] [address] December, Tendinitis of right peroneus longus tendon M76.71 [facility] [address] [id number] [address] [place] [address] December, [facility] [address] [id number] [address] [place] [address] December, Closed fracture of right ank le with routine healing, subsequent encounter S82.891D [facility] [address] [id number] [address] [place] [address] December, [facility] [address] [id number] [address] [place] [address] December, [facility] [address] [id number] [address] [place] [address] December, History of fracture of right ankle Z87.81 [place] [address] [facility] [id number] [address] [place] [address] December, History of fracture of right ankle Z87.81 [place] [address] [facility] [id number] [address] [place] [address] Nov, Other closed fracture of dis cierra end of right fibula with routine healing, subsequent encounter S82.831D and BMI 40.0-44.9, adult Z68.41 [facility] [address] [id number] [address] [place] [address] Oct, Sciatica of left side M54.32 [place] [address] [id number] [address] [place] [phone] Oct, [facility] [address] [place] [id number] [address] [place] [address] Oct, Bipolar affective disorder, current episode hypomanic F31.0 [place] [address] [place] [id number] [address] [place] [address] Oct, [place] [address] [place] [id number] [place] [address] Oct, PTSD (post-traumatic stress disorder) F43.10 ; Anxiety F41.9 and Bipolar II disorder, moderate, depressed, with anxious distress F31.81 [facility] [address] [place] [id number] [address] [place] [address] Oct, Other closed fracture of dis cierra end of right fibula with routine healing, subsequent encounter S82.831D and BMI 40.0-44.9, adult Z68.41 [facility] [address] [id number] [address] [place] [address] Oct, Bipolar affective disorder, current episode hypomanic F31.0 [facility] [address] [id number] [address] [place] [address] Sep, BMI 40.0-44.9, adult Z68.41 ; Essential hypertension I10 and Other closed fracture of distal end of right fibula with routine healing, subsequent encounter S82.831D [place] [address] [facility] [id number] [address] [place] [address] Aug, Bipolar II disorder, moderat e, depressed, with anxious distress F31.81 [place] [address] [facility] [id number] [address] [place] [address] Aug, Bipolar II disorder, moderat e, depressed, with anxious distress F31.81 and BMI 40.0-44.9, adult Z68.41 [place] [address] [facility] [id number] [address] [place] [address] Aug, Other closed fracture of dis cierra end of right fibula, initial encounter S82.831A [place] [address] [facility] [id number] [address] [place] [address] Aug, Bipolar II disorder, moderat e, depressed, with anxious distress F31.81 and BMI 40.0-44.9, adult Z68.41 [place] [address] [id number] [address] [place] [address] Aug, [place] [address] [id number] [address] [place] [address] Aug, [facility] [address] [id number] [address] [place] [address] Aug, [place] [id number] [place] [address] 19 Aug, 2017 BMI 40.0-44.9, adult Z68.41 [place] [address] [place] [id number] [place] [address] Aug, Anxiety F41.9 ; PTSD (post-t raumatic stress disorder) F43.10 and Bipolar II disorder, moderate, depressed, with anxious distress F31.81 [place] [address] [address] 11 Aug, 2017 Dental examination Z01.[address] [address] 09 Aug, 2017 BMI 40.0-44.9, adult Z68.41 ; Back pain of lumbar region with sciatica M54.40 ; Mild HTN I10 ; Anxiety F41.9 ; Screening for diabetes mellitus (DM) Z13.1 and Screening for lipid disorders Z13.220 [place] [address] [address] 04 Aug, 2017 Anxiety F41.9 ; PTSD (post-t raumatic stress disorder) F43.10 and Bipolar II disorder, moderate, depressed, with anxious distress F31.[address] [address] 03 Aug, 2017 Bipolar II disorder, moderat e, depressed, with anxious distress F31.81 and BMI 40.0-44.9, adult Z68.41 [place] [address] [place] [id number] [address] [place] [address] Jul, [place] [address] [address] Jul, [place] [id number] [place] [address] Jul, Bipolar II disorder, moderat e, depressed, with anxious distress F31.81 ; PTSD (post-traumatic stress disorder) F43.10 and Anxiety F41.9 [place] [id number] [place] [address] 15 Jul, 2017 Bipolar II disorder, moderat e, depressed, with anxious distress F31.81 [facility] [address] [address] Jul, Bipolar II disorder, moderat e, depressed, with anxious distress F31.81 and PTSD (post-traumatic stress disorder) F43.10 [place] [address] [address] Jul, Bipolar II disorder, moderat e, depressed, with anxious distress F31.[address] [address] 06 Jul, 2017 Bipolar II disorder, moderat e, depressed, with anxious distress F31.81 ; PTSD (post-traumatic stress disorder) F43.10 and Anxiety F41.9 [facility] [address] [address] Jul, Mild HTN I10 ; Pedal edema R 60.0 and BMI 40.0-44.9, adult Z68.41 [facility] [address] [address] Jun, Back pain of lumbar region w ith sciatica M54.40 [facility] [address] [address] Jun, Acute nasopharyngitis (commo n cold) J00 IMMUNIZATIONS No Known Immunizations SOCIAL HISTORY Never Assessed REASON FOR VISIT New order PLAN OF CARE VITAL SIGNS MEDICATIONS Unknown [...]
--- OUTSIDE RECORDS SUMMARY | 2020-01-05 15:53 | XMS REPORT ---
Author Author Geeta FOSTER [facility] Address [address] [place] [address] Care Team Providers Care Windows Admin Name Role Phone MANDO FOSTER Unavailable PROBLEMS Type Condition ICD9-CM Code IYB03-FO Code Onset Dates Condition S tatus SNOMED Code Problem Anxiety F41.9 Active 82351289 Problem PTSD (post-traumatic stress disorder) F43.10 Active 80981216 Problem Bipolar II disorder, moderate, depressed, with a nxious distress F31.81 Active 75199606 Problem Constipation, unspecified constipation type K59.00 Active 49590801 Problem Back pain of lumbar region with sciatica M54.40 Active 738036132 Problem Fibromyalgia M79.7 Active 2621048 05 Problem Vitamin D deficiency E55.9 Active 39547145 Problem Essential hypertension I10 Active 68938494 Problem Closed fracture of right ank le with routine healing, subsequent encounter S82.891D Active 83854870 Problem Chronic fatigue R53.82 Active 8422 9001 Problem Other chronic pain G89.29 Active 8 [id number] ALLERGIES No Information ENCOUNTERS Encounter Location Date Diagnosis [facility] [address] [facility] [id number] [address] [place] [address] Apr, [facility] [address] [facility] [id number] [address] [place] [phone] Mar, [facility] [address] [facility] [id number] [address] [place] [address] Feb, [facility] [address] [place] [id number] [address] [place] [phone] Feb, Bipolar affective disorder, current episode hypomanic F31.0 and Anxiety F41.9 [facility] [address] [place] [id number] [address] [place] [address] Feb, Morbid obesity E66.01 ; Gayathri min D deficiency E55.9 ; Screening for diabetes mellitus Z13.1 ; Chronic fatigue R53.82 and Fibromyalgia M79.7 [facility] [address] [facility] [id number] [address] [place] [phone] Jan, [facility] [address] [facility] [id number] [address] [place] [address] Jan, Vitamin D deficiency E55.9 [place] [address] [facility] [id number] [address] [place] [address] Jan, Vitamin D deficiency E55.9 [place] [address] [facility] [id number] [address] [place] [address] December, [place] [address] [facility] [id number] [address] [place] [address] December, Fibromyalgia M79.7 ; Vitamin D deficiency E55.9 and Morbid obesity E66.01 [place] [address] [facility] [id number] [address] [place] [address] Nov, [place] [address] [facility] [id number] [address] [place] [address] Nov, Weight loss counseling, enco maite for Z71.3 [place] [address] [facility] [id number] [address] [place] [address] Nov, Morbid obesity E66.01 [place] [address] [facility] [id number] [address] [place] [address] Nov, Bipolar affective disorder, current episode hypomanic F31.0 and Anxiety F41.9 [place] [address] [facility] [id number] [address] [place] [address] Oct, Vitamin D deficiency E55.9 [place] [address] [facility] [id number] [address] [place] [address] Oct, [place] [address] [facility] [id number] [address] [place] [address] Oct, Morbid obesity E66.01 [place] [address] [facility] [id number] [address] [place] [address] Oct, Vitamin D deficiency E55.9 ; Bipolar affective disorder, current episode hypomanic F31.0 ; Anxiety F41.9 and 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 [place] [address] [facility] [id number] [address] [place] [address] Oct, [place] [address] [place] [id number] [place] [address] Oct, Bipolar affective disorder, current episode hypomanic F31.0 ; Other correction (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.899 and Anxiety F41.9 [place] [address] [place] [id number] [address] [place] [address] Oct, Exercise counseling Z71.82 [place] [address] [place] [id number] [address] [place] [address] Sep, Exercise counseling Z71.82 [place] [address] [place] [id number] [address] [place] [address] Sep, Ankle sprain S93.409A [place] [address] [place] [id number] [address] [place] [address] Sep, Chronic fatigue R53.82 ; Vit lee D deficiency E55.9 ; Weight loss counseling, encounter for Z71.3 ; Neck pain M54.2 ; Constipation, unspecified constipation type K59.00 and BMI 45.0-49.9, adult Z68.42 [place] [address] [place] [id number] [address] [place] [address] Aug, Bipolar affective disorder, current episode hypomanic F31.0 ; Anxiety F41.9 and Other correction (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.899 [place] [address] [place] [id number] [address] [place] [address] Aug, Chronic fatigue R53.82 ; Vit lee D deficiency E55.9 ; Constipation, unspecified constipation type K59.00 ; Weight loss counseling, encounter for Z71.3 ; Neck pain M54.2 ; Other chronic pain G89.29 and BMI 45.0-49.9, adult Z68.42 [place] [address] [place] [id number] [address] [place] [address] 17 Aug, 2018 Sprain of calcaneofibular li gament of right ankle, initial encounter S93.411A [place] [id number] [place] [address] Jul, Vitamin D deficiency E55.9 [place] [address] [place] [id number] [place] [address] Jul, [place] [address] [address] Jul, Other chronic pain G89.29 ; Chronic fatigue R53.82 ; Arthralgia, unspecified joint M25.50 ; Weight loss counseling, encounter for Z71.3 and BMI 45.0-49.9, adult Z68.42 [place] [address] [place] [id number] [address] [place] [address] 10 Jul, 2018 Closed fracture of right ank le with routine healing, subsequent encounter S82.891D [place] [address] [place] [id number] [address] [place] [address] 03 Jul, 2018 Peripheral edema R60.9 [place] [address] [place] [id number] [address] [place] [address] Jun, Ankle sprain S93.409A [place] [address] [place] [id number] [address] [place] [address] Jun, [place] [address] [place] [id number] [place] [address] Jun, Ankle sprain S93.409A [place] [address] [place] [id number] [address] [place] [address] Jun, Hair loss L65.9 [place] [address] [place] [id number] [address] [place] [address] Jun, Hair loss L65.9 [place] [address] [address] Jun, [facility] [address] [place] [id number] [place] [address] Jun, BMI 45.0-49.9, adult Z68.42 ; Viral illness B34.9 and Pain R52 [place] [address] [address] May, Other injury of muscle(s) an d tendon(s) of peroneal muscle group at lower leg level, right leg, initial encounter S86.391A [place] [address] [address] May, Bipolar affective disorder, current episode hypomanic F31.0 and Anxiety F41.9 [place] [address] [address] May, [place] [address] [address] May, Essential hypertension I10 ; Swelling of lower extremity M79.89 and Peripheral edema R60.9 [place] [address] [address] May, BMI 45.0-49.9, adult Z68.42 [place] [address] [address] 26 Apr, 2018 BMI 45.0-49.9, adult Z68.42 ; Peripheral edema R60.9 and Right ankle pain, unspecified chronicity M25.571 [facility] [address] [place] [id number] [address] [place] [address] Apr, Skin infection L08.9 and BMI 40.0-44.9, adult Z68.41 [place] [address] [place] [address] Feb, [facility] [address] [id number] [address] [place] [address] Feb, [facility] [address] [id number] [address] [place] [address] Jan, Back pain of lumbar region w ith sciatica M54.40 and BMI 45.0-49.9, adult Z68.42 [facility] [address] [id number] [address] [place] [address] Jan, [facility] [address] [id number] [address] [place] [address] Jan, Closed fracture of right ank le with routine healing, subsequent encounter S82.891D [facility] [address] [id number] [address] [place] [address] Jan, [facility] [address] [id number] [address] [place] [address] Jan, [facility] [address] [id number] [address] [place] [address] December, Closed fracture of right ank le with routine healing, subsequent encounter S82.891D [facility] [address] [id number] [address] [place] [address] December, Tendinitis of right peroneus longus tendon M76.71 [facility] [address] [id number] [address] [place] [address] December, [facility] [address] [id number] [address] [place] [address] December, Closed fracture of right ank le with routine healing, subsequent encounter S82.891D [facility] [address] [id number] [address] [place] [address] December, [facility] [address] [id number] [address] [place] [address] December, [place] [id number] [id number] [address] [place] [address] December, History of fracture of right ankle Z87.81 [place] [id number] [facility] [id number] [address] [place] [address] December, History of fracture of right ankle Z87.81 [facility] [address] [facility] [id number] [address] [place] [address] Nov, Other closed fracture of dis cierra end of right fibula with routine healing, subsequent encounter S82.831D and BMI 40.0-44.9, adult Z68.41 [facility] [address] [id number] [address] [place] [address] Oct, Sciatica of left side M54.32 [place] [address] [place] [id number] [address] [place] [address] Oct, [place] [address] [facility] [id number] [address] [place] [address] Oct, Bipolar affective disorder, current episode hypomanic F31.0 [place] [address] [place] [id number] [address] [place] [address] Oct, [place] [address] [place] [id number] [address] [place] [address] Oct, PTSD (post-traumatic stress disorder) F43.10 ; Anxiety F41.9 and Bipolar II disorder, moderate, depressed, with anxious distress F31.81 [place] [id number] [place] [id number] [address] [place] [address] Oct, Other closed fracture of dis cierra end of right fibula with routine healing, subsequent encounter S82.831D and BMI 40.0-44.9, adult Z68.41 [facility] [address] [facility] [id number] [address] [place] [address] Oct, Bipolar affective disorder, current episode hypomanic F31.0 [place] [address] [place] [id number] [address] [place] [address] Sep, BMI 40.0-44.9, adult Z68.41 ; Essential hypertension I10 and Other closed fracture of distal end of right fibula with routine healing, subsequent encounter S82.831D [facility] [address] [id number] [address] [place] [address] Aug, Bipolar II disorder, moderat e, depressed, with anxious distress F31.81 [place] [address] [facility] [id number] [address] [place] [address] Aug, Bipolar II disorder, moderat e, depressed, with anxious distress F31.81 and BMI 40.0-44.9, adult Z68.41 [place] [address] [facility] [id number] [address] [place] [address] Aug, Other closed fracture of dis cierra end of right fibula, initial encounter S82.831A [place] [address] [place] [id number] [address] [place] [address] Aug, Bipolar II disorder, moderat e, depressed, with anxious distress F31.81 and BMI 40.0-44.9, adult Z68.41 [place] [address] [facility] [id number] [address] [place] [address] Aug, [place] [address] [place] [id number] [address] [place] [address] Aug, [place] [address] [place] [id number] [address] [place] [address] Aug, [place] [address] [facility] [id number] [address] [place] [address] Aug, BMI 40.0-44.9, adult Z68.41 [place] [address] [place] [id number] [address] [place] [address] Aug, Anxiety F41.9 ; PTSD (post-t raumatic stress disorder) F43.10 and Bipolar II disorder, moderate, depressed, with anxious distress F31.81 [place] [address] [place] [id number] [address] [place] [address] 11 Aug, 2017 Dental examination Z01.20 [place] [address] [place] [id number] [address] [place] [address] 09 Aug, 2017 BMI 40.0-44.9, adult Z68.41 ; Back pain of lumbar region with sciatica M54.40 ; Mild HTN I10 ; Anxiety F41.9 ; Screening for diabetes mellitus (DM) Z13.1 and Screening for lipid disorders Z13.220 [place] [address] [facility] [id number] [address] [place] [address] 04 Aug, 2017 Anxiety F41.9 ; PTSD (post-t raumatic stress disorder) F43.10 and Bipolar II disorder, moderate, depressed, with anxious distress F31.81 [place] [address] [place] [id number] [address] [place] [address] Aug, Bipolar II disorder, moderat e, depressed, with anxious distress F31.81 and BMI 40.0-44.9, adult Z68.41 [place] [id number] [place] [address] Jul, [place] [address] [place] [id number] [address] [place] [address] Jul, [place] [address] [place] [id number] [address] [place] [phone] Jul, Bipolar II disorder, moderat e, depressed, with anxious distress F31.81 ; PTSD (post-traumatic stress disorder) F43.10 and Anxiety F41.9 [place] [address] [facility] [id number] [address] [place] [address] 15 Jul, 2017 Bipolar II disorder, moderat e, depressed, with anxious distress F31.81 [place] [address] [facility] [id number] [address] [place] [address] Jul, Bipolar II disorder, moderat e, depressed, with anxious distress F31.81 and PTSD (post-traumatic stress disorder) F43.10 [place] [address] [place] [address] 11 Jul, 2017 Bipolar II disorder, moderat e, depressed, with anxious distress F31.81 [facility] [address] [place] [id number] [address] [place] [address] 06 Jul, 2017 Bipolar II disorder, moderat e, depressed, with anxious distress F31.81 ; PTSD (post-traumatic stress disorder) F43.10 and Anxiety F41.9 [facility] [address] [place] [address] Jul, Mild HTN I10 ; Pedal edema R 60.0 and BMI 40.0-44.9, adult Z68.41 [facility] [address] [address] Jun, Back pain of lumbar region w ith sciatica M54.40 [facility] [address] [address] Jun, Acute nasopharyngitis (commo n cold) J00 IMMUNIZATIONS No Known Immunizations SOCIAL HISTORY Never Assessed REASON FOR VISIT Lab (walk-in) PLAN OF CARE VITAL SIGNS MEDICATIONS Unknown Medications RESULTS No Results PROCEDURES Procedure Date Ordered Result Body Site VENIPUNCT, ROUTINE* October 30, 2018 LAB NOT BILLED BY [facility] October 30, 2018 INSTRUCTIONS MEDICATIONS ADMINISTERED No Known Medications [...]
--- OUTSIDE RECORDS SUMMARY | 2020-01-05 15:53 | XMS REPORT ---
Author Author Geeta FOSTER [facility] Address [address] [place] [address] Care Team Providers Care Contact Center Associate Name Role Phone MANDO FOSTER Unavailable PROBLEMS Type Condition ICD9-CM Code GIF70-QA Code Onset Dates Condition S tatus SNOMED Code Problem Anxiety F41.9 Active 65689929 Problem PTSD (post-traumatic stress disorder) F43.10 Active 19150963 Problem Bipolar II disorder, moderate, depressed, with a nxious distress F31.81 Active 61938380 Problem Constipation, unspecified constipation type K59.00 Active 50798073 Problem Back pain of lumbar region with sciatica M54.40 Active 687163816 Problem Fibromyalgia M79.7 Active 7057878 05 Problem Vitamin D deficiency E55.9 Active 56081171 Problem Essential hypertension I10 Active 12687441 Problem Closed fracture of right ank le with routine healing, subsequent encounter S82.891D Active 15419519 Problem Chronic fatigue R53.82 Active 8422 9001 Problem Other chronic pain G89.29 Active 8 [id number] ALLERGIES No Information ENCOUNTERS Encounter Location Date Diagnosis [facility] [address] [facility] [id number] [address] [place] [phone] Feb, [facility] [address] [facility] [id number] [address] [place] [phone] Feb, [facility] [address] [facility] [id number] [address] [place] [phone] Jan, [facility] [address] [facility] [id number] [address] [place] [phone] Jan, Vitamin D deficiency E55.9 [facility] [address] [facility] [id number] [address] [place] [phone] Jan, Vitamin D deficiency E55.9 [place] [address] [facility] [id number] [address] [place] [address] December, [facility] [address] [facility] [id number] [address] [place] [address] December, Fibromyalgia M79.7 ; Vitamin D deficiency E55.9 [address] obesity E66.01 [facility] [address] [facility] [id number] [address] [place] [phone] Nov, [facility] [address] [facility] [id number] [address] [place] [phone] Nov, Weight loss counseling, enco maite for Z71.3 [place] [address] [facility] [id number] [address] [place] [phone] Nov, Morbid obesity E66.[address] [place] [address] [facility] [id number] [address] [place] [phone] Nov, Bipolar affective disorder, current episode hypomanic F31.0 and Anxiety F41.9 [place] [address] [facility] [id number] [address] [place] [phone] Oct, Vitamin D deficiency E55.9 [place] [address] [facility] [id number] [address] [place] [phone] Oct, [place] [address] 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 [address] [facility] [id number] [address] [place] [phone] Oct, Morbid obesity E66.01 [place] [address] [facility] [id number] [address] [place] [id number] Oct, [place] [address] [facility] [id number] [address] [place] [phone] Oct, Bipolar affective disorder, current episode hypomanic F31.0 ; Other skilled nursing (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.899 and Anxiety F41.9 [place] [id number] [place] [address] Oct, Exercise counseling Z71.82 [place] [address] [facility] [id number] [address] [place] [phone] Sep, Exercise counseling Z71.82 [place] [address] [place] [id number] [address] [place] [address] Sep, Ankle sprain S93.409A [place] [id number] [place] [address] Sep, Chronic fatigue R53.82 ; Vit lee D deficiency E55.9 ; Weight loss counseling, encounter for Z71.3 ; Neck pain M54.2 ; Constipation, unspecified constipation type K59.00 and BMI 45.0-49.9, adult Z68.42 [place] [address] [place] [id number] [address] [place] [address] Aug, Bipolar affective disorder, current episode hypomanic F31.0 ; Anxiety F41.9 and Other remote computer terminal operator (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.899 [place] [address] [place] [id number] [address] [place] [address] Aug, Chronic fatigue R53.82 ; Vit lee D deficiency E55.9 ; Constipation, unspecified constipation type K59.00 ; Weight loss counseling, encounter for Z71.3 ; Neck pain M54.2 ; Other chronic pain G89.29 and BMI 45.0-49.9, adult Z68.42 [place] [address] [place] [id number] [address] [place] [phone] Aug, Sprain of calcaneofibular li gament of right ankle, initial encounter S93.411A [place] [address] [place] [id number] [address] [place] [address] Jul, Vitamin D deficiency E55.9 [place] [address] [place] [address] 14 Jul, 2018 [facility] [address] [address] 14 Jul, 2018 Other chronic pain G89.29 ; Chronic fatigue R53.82 ; Arthralgia, unspecified joint M25.50 ; Weight loss counseling, encounter for Z71.3 and BMI 45.0-49.9, adult Z68.42 [facility] [address] [address] 10 Jul, 2018 Closed fracture of right ank le with routine healing, subsequent encounter S82.891D [place] [address] [address] 03 Jul, 2018 Peripheral edema R60.9 [place] [address] [address] 29 Jun, 2018 Ankle sprain S93.409A [place] [address] [address] Jun, [facility] [address] [address] Jun, Ankle sprain S93.409A [place] [address] [address] 20 Jun, [address] [facility] [address] [address] Jun, Hair loss L65.9 [facility] [address] [place] [id number] [address] [place] [phone] Jun, [facility] [address] [place] [id number] [place] [address] 05 Jun, 2018 BMI 45.0-49.9, adult Z68.42 ; Viral illness B34.[address] [facility] [address] [place] [id number] [address] [place] [phone] May, Other injury of muscle(s) an d tendon(s) of peroneal muscle group at lower leg level, right leg, initial encounter S86.391A [place] [address] [address] May, Bipolar affective disorder, current episode hypomanic F31.0 and Anxiety F41.9 [place] [address] [place] [id number] [address] [place] [address] May, [place] [address] [address] May, Essential hypertension I10 ; Swelling of lower extremity M79.89 and Peripheral edema R60.9 [place] [address] [address] May, BMI 45.0-49.9, adult Z68.42 [place] [address] [address] Apr, BMI 45.0-49.9, adult Z68.42 ; Peripheral edema R60.9 and Right ankle pain, unspecified chronicity M25.571 [facility] [place] [address] [place] [id number] [address] [place] [address] Apr, Skin infection L08.9 and BMI 40.0-44.9, adult Z68.41 [place] [address] [place] [id number] [address] [place] [address] Feb, [place] [address] [place] [id number] [place] [address] Feb, [facility] [address] [place] [id number] [address] [place] [id number] Jan, Back pain of lumbar region w ith sciatica M54.40 and BMI 45.0-49.9, adult Z68.42 [place] [address] [place] [id number] [address] [place] [address] Jan, [place] [address] [place] [id number] [address] [place] [address] Jan, Closed fracture of right ank le with routine healing, subsequent encounter S82.891D [facility] [address] [id number] [address] [place] [phone] Jan, [facility] [address] [id number] [address] [place] [address] Jan, [facility] [address] [id number] [address] [place] [address] December, Closed fracture of right ank le with routine healing, subsequent encounter S82.891D [facility] [address] [id number] [address] [place] [address] December, Tendinitis of right peroneus longus tendon M76.71 [facility] [address] [id number] [address] [place] [address] December, [facility] [address] [id number] [address] [place] [address] December, Closed fracture of right ank le with routine healing, subsequent encounter S82.891D [facility] [address] [id number] [address] [place] [address] December, [facility] [address] [id number] [address] [place] [address] December, [facility] [address] [id number] [address] [place] [address] December, History of fracture of right ankle Z87.81 [facility] [address] [id number] [address] [place] [address] December, History of fracture of right ankle Z87.81 [facility] [address] [id number] [address] [place] [address] Nov, Other closed fracture of dis cierra end of right fibula with routine healing, subsequent encounter S82.831D and BMI 40.0-44.9, adult Z68.41 [facility] [address] [facility] [id number] [address] [place] [phone] Oct, Sciatica of left side M54.32 [facility] [address] [facility] [id number] [address] [place] [address] Oct, [facility] [address] [place] [id number] [address] [place] [address] Oct, Bipolar affective disorder, current episode hypomanic F31.0 [place] [address] [facility] [id number] [address] [place] [phone] Oct, [place] [address] [place] [id number] [place] [address] Oct, PTSD (post-traumatic stress disorder) F43.10 ; Anxiety F41.9 and Bipolar II disorder, moderate, depressed, with anxious distress F31.81 [place] [address] [place] [id number] [address] [place] [address] Oct, Other closed fracture of dis cierra end of right fibula with routine healing, subsequent encounter S82.831D and BMI 40.0-44.9, adult Z68.41 [facility] [address] [place] [id number] [address] [place] [address] Oct, Bipolar affective disorder, current episode hypomanic F31.0 [place] [address] [place] [id number] [address] [place] [address] Sep, BMI 40.0-44.9, adult Z68.41 ; Essential hypertension I10 and Other closed fracture of distal end of right fibula with routine healing, subsequent encounter S82.831D [place] [address] [place] [id number] [address] [place] [address] Aug, Bipolar II disorder, moderat e, depressed, with anxious distress F31.81 [facility] [address] [place] [id number] [address] [place] [phone] Aug, Bipolar II disorder, moderat e, depressed, with anxious distress F31.81 and BMI 40.0-44.9, adult Z68.41 [facility] [address] [id number] [address] [place] [address] Aug, Other closed fracture of dis cierra end of right fibula, initial encounter S82.831A [facility] [address] [id number] [address] [place] [address] Aug, Bipolar II disorder, moderat e, depressed, with anxious distress F31.81 and BMI 40.0-44.9, adult Z68.41 [place] [address] [id number] [address] [place] [phone] Aug, [place] [address] [id number] [address] [place] [address] Aug, [place] [address] [id number] [address] [place] [phone] Aug, [place] [address] [id number] [address] [place] [address] Aug, BMI 40.0-44.9, adult Z68.41 [place] [address] [id number] [address] [place] [phone] Aug, Anxiety F41.9 ; PTSD (post-t raumatic stress disorder) F43.10 and Bipolar II disorder, moderate, depressed, with anxious distress F31.81 [place] [address] [id number] [address] [place] [address] 11 Aug, 2017 Dental examination Z01.20 [place] [address] [id number] [address] [place] [address] 09 Aug, 2017 BMI 40.0-44.9, adult Z68.41 ; Back pain of lumbar region with sciatica M54.40 ; Mild HTN I10 ; Anxiety F41.9 ; Screening for diabetes mellitus (DM) Z13.1 and Screening for lipid disorders Z13.220 [place] [address] [id number] [address] [place] [address] Aug, Anxiety F41.9 ; PTSD (post-t raumatic stress disorder) F43.10 and Bipolar II disorder, moderate, depressed, with anxious distress F31.81 [place] [address] [address] Aug, Bipolar II disorder, moderat e, depressed, with anxious distress F31.81 and BMI 40.0-44.9, adult Z68.41 [place] [address] [address] Jul, [place] [address] [address] Jul, [place] [address] [address] Jul, Bipolar II disorder, moderat e, depressed, with anxious distress F31.81 ; PTSD (post-traumatic stress disorder) F43.10 and Anxiety F41.9 [place] [address] [address] Jul, Bipolar II disorder, moderat e, depressed, with anxious distress F31.81 [place] [address] [address] Jul, Bipolar II disorder, moderat e, depressed, with anxious distress F31.81 and PTSD (post-traumatic stress disorder) F43.10 [place] [address] [address] Jul, Bipolar II disorder, moderat e, depressed, with anxious distress F31.81 [place] [address] [place] [id number] [place] [address] Jul, Bipolar II disorder, moderat e, depressed, with anxious distress F31.81 ; PTSD (post-traumatic stress disorder) F43.10 and Anxiety F41.9 [facility] [address] [place] [id number] [address] [place] [address] Jul, Mild HTN I10 ; Pedal edema R 60.0 and BMI 40.0-44.9, adult Z68.41 [facility] [address] [facility] [id number] [address] [address] Jun, Back pain of lumbar region w ith sciatica M54.40 [facility] [address] [facility] [id number] [address] [address] Jun, Acute nasopharyngitis (commo n cold) J00 [...] age 19 Hospitalization History surgeries, Hospitalization History ER for sprain 2018
--- OUTSIDE RECORDS SUMMARY | 2020-01-05 15:53 | XMS REPORT ---
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 Name Role Phone MANDO FOSTER Unavailable PROBLEMS Type Condition ICD9-CM Code [id number] Code Onset Dates Condition S tatus SNOMED Code Problem Vitamin D deficiency E55.9 Active 33451295 Problem Anxiety F41.9 Active 41693458 Problem Back pain of lumbar region with sciatica M54.40 Active 793541583 Problem Other chronic pain G89.29 Active 8 1133709 Problem Chronic fatigue R53.82 Active 8422 9001 Problem Bipolar II disorder, moderate, depressed, with a nxious distress F31.81 Active 53303290 Problem PTSD (post-traumatic stress disorder) F43.10 Active 62771713 Problem Closed fracture of right ank le with routine healing, subsequent encounter S82.891D Active 05965802 Problem Essential hypertension I10 Active 17815557 ALLERGIES No Information ENCOUNTERS Encounter Location Date Diagnosis [place] [address] [place] [id number] [place] [id number] Aug, [place] [address] [place] [id number] [address] [place] [address] Jul, Vitamin D deficiency E55.9 [facility] [address] [place] [id number] [place] [phone] Jul, [place] [address] [address] Jul, Other chronic pain G89.29 ; Chronic fatigue R53.82 ; Arthralgia, unspecified joint M25.50 ; Weight loss counseling, encounter for Z71.3 and BMI 45.0-49.9, adult Z68.42 [place] [address] [place] [id number] [address] [place] [address] Jul, Closed fracture of right ank le with routine healing, subsequent encounter S82.891D [facility] [address] [facility] [id number] [address] [place] [address] Jul, Peripheral edema R60.9 [facility] [address] [id number] [address] [place] [address] Jun, Ankle sprain S93.409A [facility] [address] [id number] [address] [place] [phone] Jun, [facility] [address] [id number] [address] [place] [phone] Jun, [facility] [address] [facility] [id number] [address] [place] [phone] Jun, Hair loss L65.9 [facility] [address] [facility] [id number] [address] [place] [phone] Jun, Hair loss L65.9 [facility] [address] [facility] [id number] [address] [place] [phone] Jun, [facility] [address] [facility] [id number] [address] [place] [id number] Jun, BMI 45.0-49.9, adult Z68.42 ; Viral illness B34.9 and Pain R52 [facility] [address] [facility] [id number] [address] [place] [phone] May, Other injury of muscle(s) an d tendon(s) of peroneal muscle group at lower leg level, right leg, initial encounter S86.391A [facility] [address] [facility] [id number] [address] [place] [address] May, Bipolar affective disorder, current episode hypomanic F31.0 and Anxiety F41.9 [facility] [address] [facility] [id number] [address] [place] [phone] May, [facility] [address] [address] May, Essential hypertension I10 ; Swelling of lower extremity M79.89 and Peripheral edema R60.9 [facility] [address] [place] [id number] [place] [address] May, BMI 45.0-49.9, adult Z68.42 [facility] [address] [address] 26 Apr, 2018 BMI 45.0-49.9, adult Z68.42 ; Peripheral edema R60.9 and Right ankle pain, unspecified chronicity M25.571 [facility] [address] [address] Apr, Skin infection L08.9 and BMI 40.0-44.9, adult Z68.41 [place] [address] [phone] Feb, [facility] [address] [address] Feb, [facility] [address] [address] Jan, Back pain of lumbar region w ith sciatica M54.40 and BMI 45.0-49.9, adult Z68.42 [place] [address] [address] Jan, [place] [address] [address] Jan, Closed fracture of right ank le with routine healing, subsequent encounter S82.891D [place] [address] [address] Jan, [facility] [address] [address] Jan, [facility] [address] [address] December, Closed fracture of right ank le with routine healing, subsequent encounter S82.891D [facility] [address] [id number] [address] [place] [address] December, Tendinitis of right peroneus longus tendon M76.71 [facility] [address] [id number] [address] [place] [address] December, [facility] [address] [id number] [address] [place] [address] December, Closed fracture of right ank le with routine healing, subsequent encounter S82.891D [facility] [address] [id number] [address] [place] [phone] December, [facility] [address] [id number] [address] [place] [address] December, [facility] [address] [id number] [address] [place] [address] December, History of fracture of right ankle Z87.81 [facility] [address] [id number] [address] [place] [address] December, History of fracture of right ankle Z87.81 [facility] [address] [id number] [address] [place] [address] Nov, Other closed fracture of dis cierra end of right fibula with routine healing, subsequent encounter S82.831D and BMI 40.0-44.9, adult Z68.41 [facility] [address] [id number] [address] [place] [address] Oct, Sciatica of left side M54.32 [facility] [address] [id number] [address] [place] [phone] Oct, [facility] [address] [id number] [address] [place] [phone] Oct, Bipolar affective disorder, current episode hypomanic F31.0 [place] [address] [facility] [id number] [address] [place] [phone] Oct, [facility] [address] [facility] [id number] [address] [place] [phone] Oct, PTSD (post-traumatic stress disorder) F43.10 ; Anxiety F41.9 and Bipolar II disorder, moderate, depressed, with anxious distress F31.81 [facility] [address] [facility] [id number] [address] [place] [address] Oct, Other closed fracture of dis cierra end of right fibula with routine healing, subsequent encounter S82.831D and BMI 40.0-44.9, adult Z68.41 [place] [address] [place] [id number] [place] [address] Oct, Bipolar affective disorder, current episode hypomanic F31.0 [place] [address] [place] [id number] [place] [address] Sep, BMI 40.0-44.9, adult Z68.41 ; Essential hypertension I10 and Other closed fracture of distal end of right fibula with routine healing, subsequent encounter S82.831D [place] [id number] [place] [address] Aug, Bipolar II disorder, moderat e, depressed, with anxious distress F31.81 [place] [id number] [place] [id number] [place] [address] Aug, Bipolar II disorder, moderat e, depressed, with anxious distress F31.81 and BMI 40.0-44.9, adult Z68.41 [place] [address] [facility] [id number] [address] [place] [address] Aug, Other closed fracture of dis cierra end of right fibula, initial encounter S82.831A [place] [address] [facility] [id number] [address] [place] [id number] Aug, Bipolar II disorder, moderat e, depressed, with anxious distress F31.81 and BMI 40.0-44.9, adult Z68.41 [place] [address] [place] [id number] [place] [address] Aug, [place] [address] [place] [id number] [place] [address] Aug, [place] [address] [place] [id number] [place] [address] Aug, [place] [address] [place] [id number] [place] [address] Aug, BMI 40.0-44.9, adult Z68.41 [place] [address] [place] [id number] [place] [address] Aug, Anxiety F41.9 ; PTSD (post-t raumatic stress disorder) F43.10 and Bipolar II disorder, moderate, depressed, with anxious distress F31.81 [place] [address] [id number] 11 Aug, 2017 Dental examination Z01.20 [place] [address] [place] [id number] [place] [address] 09 Aug, 2017 BMI 40.0-44.9, adult Z68.41 ; Back pain of lumbar region with sciatica M54.40 ; Mild HTN I10 ; Anxiety F41.9 ; Screening for diabetes mellitus (DM) Z13.1 and Screening for lipid disorders Z13.220 [place] [address] [place] [id number] [place] [id number] 04 Aug, 2017 Anxiety F41.9 ; PTSD (post-t raumatic stress disorder) F43.10 and Bipolar II disorder, moderate, depressed, with anxious distress F31.81 [place] [address] [place] [id number] [place] [id number] 03 Aug, 2017 Bipolar II disorder, moderat e, depressed, with anxious distress F31.81 and BMI 40.0-44.9, adult Z68.41 [place] [address] [place] [id number] [place] [address] Jul, [place] [address] [facility] [id number] [address] [place] [phone] Jul, [place] [address] [place] [id number] [place] [address] Jul, Bipolar II disorder, moderat e, depressed, with anxious distress F31.81 ; PTSD (post-traumatic stress disorder) F43.10 and Anxiety F41.9 [place] [id number] [place] [address] Jul, Bipolar II disorder, moderat e, depressed, with anxious distress F31.[address] [address] Jul, Bipolar II disorder, moderat e, depressed, with anxious distress F31.81 and PTSD (post-traumatic stress disorder) F43.[address] [address] Jul, Bipolar II disorder, moderat e, depressed, with anxious distress F31.81 [place] [id number] [place] [id number] Jul, Bipolar II disorder, moderat e, depressed, with anxious distress F31.81 ; PTSD (post-traumatic stress disorder) F43.10 and Anxiety F41.9 [facility] [place] [id number] [place] [address] Jul, Mild HTN I10 ; Pedal edema R 60.0 and BMI 40.0-44.9, adult Z68.41 [facility] [place] [id number] [place] [phone] Jun, Back pain of lumbar region w ith sciatica M54.40 [facility] [place] [id number] [address] [place] [address] Jun, Acute nasopharyngitis (commo n cold) J00 IMMUNIZATIONS No Known Immunizations SOCIAL HISTORY Never Assessed REASON FOR VISIT Rx per lab PLAN OF CARE VITAL SIGNS MEDICATIONS Medication Instructions Dosage Frequency Start Date End Date Duration S thierry Ergocalciferol 31323 UNIT Orally once weekly 1 capsule 2017 12 Weeks Active RESULTS No Results PROCEDURES No Known [...]
--- OUTSIDE RECORDS SUMMARY | 2020-01-05 15:53 | XMS REPORT ---
Author Author Geeta HANNON [facility] Address [address] [place] [address] Care Team Providers Care Acct Exec Name Role Phone PARVEZ AMI Unavailable PROBLEMS Type Condition ICD9-CM Code [id number] Code Onset Dates Condition S tatus SNOMED Code Problem Anxiety F41.9 Active 45019343 Problem PTSD (post-traumatic stress disorder) F43.10 Active 80392655 Problem Bipolar II disorder, moderate, depressed, with a nxious distress F31.81 Active 61958873 Problem Constipation, unspecified constipation type K59.00 Active 67240302 Problem Back pain of lumbar region with sciatica M54.40 Active 713686668 Problem Fibromyalgia M79.7 Active 3556111 05 Problem Vitamin D deficiency E55.9 Active 90253281 Problem Essential hypertension I10 Active 37697575 Problem Closed fracture of right ank le with routine healing, subsequent encounter S82.891D Active 39278219 Problem Chronic fatigue R53.82 Active 8422 9001 Problem Other chronic pain G89.29 Active 8 [id number] ALLERGIES No Information ENCOUNTERS Encounter Location Date Diagnosis [place] [address] [facility] [id number] [address] [place] [phone] Feb, [facility] [address] [facility] [id number] [address] [place] [phone] Feb, [facility] [address] [facility] [id number] [address] [place] [phone] December, Fibromyalgia M79.7 ; Vitamin D deficiency E55.9 and Morbid obesity E66.01 [facility] [address] [facility] [id number] [address] [place] [phone] Nov, [facility] [address] [place] [id number] [address] [place] [phone] Nov, Weight loss counseling, enco unter for Z71.3 [facility] [address] [facility] [id number] [address] [place] [phone] Nov, Morbid obesity E66.01 [facility] [address] [facility] [id number] [address] [place] [phone] Nov, Bipolar affective disorder, current episode hypomanic F31.0 and Anxiety F41.9 [place] [address] [facility] [id number] [address] [place] [phone] Oct, Vitamin D deficiency E55.9 [facility] [address] [id number] [address] [place] [id number] Oct, [place] [address] [facility] [id number] [address] [place] [phone] Oct, Morbid obesity E66.01 [place] [address] [facility] [id number] [address] [place] [phone] Oct, Vitamin D deficiency E55.9 ; Bipolar affective disorder, current episode hypomanic F31.0 ; Anxiety F41.9 and 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 [place] [address] [facility] [id number] [address] [place] [id number] Oct, [place] [address] [facility] [id number] [address] [place] [phone] Oct, Bipolar affective disorder, current episode hypomanic F31.0 ; Other usp (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.899 and Anxiety F41.9 [place] [address] [id number] [address] [place] [phone] Oct, Exercise counseling Z71.82 [place] [address] [facility] [id number] [address] [place] [address] Sep, Exercise counseling Z71.82 [place] [address] [facility] [id number] [address] [place] [address] Sep, Ankle sprain S93.409A [place] [address] [place] [phone] Sep, Chronic fatigue R53.82 ; Vit lee D deficiency E55.9 ; Weight loss counseling, encounter for Z71.3 ; Neck pain M54.2 ; Constipation, unspecified constipation type K59.00 and BMI 45.0-49.9, adult Z68.42 [place] [address] [place] [address] Aug, Bipolar affective disorder, current episode hypomanic F31.0 ; Anxiety F41.9 and Other usp (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.899 [place] [address] [address] Aug, Chronic fatigue R53.82 ; Vit lee D deficiency E55.9 ; Constipation, unspecified constipation type K59.00 ; Weight loss counseling, encounter for Z71.3 ; Neck pain M54.2 ; Other chronic pain G89.29 and BMI 45.0-49.9, adult Z68.42 [place] [address] [place] [id number] [address] [place] [id number] 17 Aug, 2018 Sprain of calcaneofibular li gament of right ankle, initial encounter S93.411A [place] [address] [place] [id number] Jul, Vitamin D deficiency E55.9 [place] [address] [place] [address] Jul, [place] [address] [place] [address] Jul, Other chronic pain G89.29 ; Chronic fatigue R53.82 ; Arthralgia, unspecified joint M25.50 ; Weight loss counseling, encounter for Z71.3 and BMI 45.0-49.9, adult Z68.42 [place] [address] [place] [id number] [address] [place] [phone] Jul, Closed fracture of right ank le with routine healing, subsequent encounter S82.891D [facility] [address] [facility] [id number] [address] [place] [address] Jul, Peripheral edema R60.9 [facility] [address] [facility] [id number] [address] [place] [address] Jun, Ankle sprain S93.409A [facility] [address] [facility] [id number] [address] [place] [address] Jun, [facility] [address] [facility] [id number] [address] [place] [address] Jun, Ankle sprain S93.409A [facility] [address] [facility] [id number] [address] [place] [phone] Jun, Hair loss L65.9 [facility] [address] [facility] [id number] [address] [place] [id number] Jun, Hair loss L65.9 [facility] [address] [place] [id number] [address] [place] [phone] Jun, [facility] [address] [facility] [id number] [address] [place] [id number] Jun, BMI 45.0-49.9, adult Z68.42 ; Viral illness B34.9 and Pain R52 [facility] [address] [facility] [id number] [address] [place] [id number] May, Other injury of muscle(s) an d tendon(s) of peroneal muscle group at lower leg level, right leg, initial encounter S86.391A [facility] [address] [facility] [id number] [address] [place] [phone] May, Bipolar affective disorder, current episode hypomanic F31.0 and Anxiety F41.9 [facility] [address] [facility] [id number] [address] [place] [phone] May, [facility] [address] [facility] [id number] [address] [place] [phone] May, Essential hypertension I10 ; Swelling of lower extremity M79.89 and Peripheral edema R60.9 [facility] [address] [id number] [address] [place] [id number] May, BMI 45.0-49.9, adult Z68.42 [facility] [address] [facility] [id number] [address] [place] [address] Apr, BMI 45.0-49.9, adult Z68.42 ; Peripheral edema R60.9 and Right ankle pain, unspecified chronicity M25.571 [facility] [address] [id number] [address] [place] [address] Apr, Skin infection L08.9 and BMI 40.0-44.9, adult Z68.41 [place] [address] [facility] [id number] [address] [place] [phone] Feb, [place] [address] [facility] [id number] [address] [place] [phone] Feb, [facility] [address] [facility] [id number] [address] [place] [address] Jan, Back pain of lumbar region w ith sciatica M54.40 and BMI 45.0-49.9, adult Z68.42 [facility] [address] [facility] [id number] [address] [place] [id number] Jan, [place] [address] [facility] [id number] [address] [place] [id number] Jan, Closed fracture of right ank le with routine healing, subsequent encounter S82.891D [place] [address] [id number] [address] [place] [id number] Jan, [place] [address] [facility] [id number] [address] [place] [phone] Jan, [facility] [address] [facility] [id number] [address] [place] [address] December, Closed fracture of right ank le with routine healing, subsequent encounter S82.891D [facility] [address] [id number] [address] [place] [id number] December, Tendinitis of right peroneus longus tendon M76.71 [facility] [address] [id number] [address] [place] [id number] December, [facility] [address] [id number] [address] [place] [address] December, Closed fracture of right ank le with routine healing, subsequent encounter S82.891D [facility] [address] [id number] [address] [place] [address] December, [place] [address] [id number] [address] [place] [phone] December, [facility] [address] [facility] [id number] [address] [place] [address] December, History of fracture of right ankle Z87.81 [facility] [address] [id number] [address] [place] [id number] December, History of fracture of right ankle Z87.81 [facility] [address] [facility] [id number] [address] [place] [phone] Nov, Other closed fracture of dis cierra end of right fibula with routine healing, subsequent encounter S82.831D and BMI 40.0-44.9, adult Z68.41 [facility] [address] [id number] [address] [place] [phone] Oct, Sciatica of left side M54.32 [facility] [address] [facility] [id number] [address] [place] [id number] Oct, [facility] [address] [facility] [id number] [address] [place] [phone] Oct, Bipolar affective disorder, current episode hypomanic F31.0 [place] [address] [facility] [id number] [address] [place] [phone] Oct, [place] [address] [id number] [address] [place] [phone] Oct, PTSD (post-traumatic stress disorder) F43.10 ; Anxiety F41.9 and Bipolar II disorder, moderate, depressed, with anxious distress F31.81 [place] [address] [id number] [address] [place] [address] Oct, Other closed fracture of dis cierra end of right fibula with routine healing, subsequent encounter S82.831D and BMI 40.0-44.9, adult Z68.41 [place] [address] [id number] [address] [place] [id number] Oct, Bipolar affective disorder, current episode hypomanic F31.0 [place] [address] [facility] [id number] [address] [place] [address] Sep, BMI 40.0-44.9, adult Z68.41 ; Essential hypertension I10 and Other closed fracture of distal end of right fibula with routine healing, subsequent encounter S82.831D [place] [address] [facility] [id number] [address] [place] [phone] Aug, Bipolar II disorder, moderat e, depressed, with anxious distress F31.81 [place] [address] [facility] [id number] [address] [place] [id number] Aug, Bipolar II disorder, moderat e, depressed, with anxious distress F31.81 and BMI 40.0-44.9, adult Z68.41 [place] [address] [id number] [address] [place] [phone] Aug, Other closed fracture of dis cierra end of right fibula, initial encounter S82.831A [place] [address] [id number] [address] [place] [address] Aug, Bipolar II disorder, moderat e, depressed, with anxious distress F31.81 and BMI 40.0-44.9, adult Z68.41 [place] [address] [facility] [id number] [address] [place] [address] Aug, [place] [address] [id number] [address] [place] [address] Aug, [place] [address] [id number] [address] [place] [address] Aug, [place] [address] [facility] [id number] [address] [place] [id number] Aug, BMI 40.0-44.9, adult Z68.41 [place] [address] [id number] [address] [place] [phone] Aug, Anxiety F41.9 ; PTSD (post-t raumatic stress disorder) F43.10 and Bipolar II disorder, moderate, depressed, with anxious distress F31.81 [place] [address] [place] [id number] [address] [place] [phone] Aug, Dental examination Z01.20 [place] [address] [facility] [id number] [address] [place] [id number] 09 Aug, 2017 BMI 40.0-44.9, adult Z68.41 ; Back pain of lumbar region with sciatica M54.40 ; Mild HTN I10 ; Anxiety F41.9 ; Screening for diabetes mellitus (DM) Z13.1 and Screening for lipid disorders Z13.220 [place] [address] [facility] [id number] [address] [place] [phone] 04 Aug, 2017 Anxiety F41.9 ; PTSD (post-t raumatic stress disorder) F43.10 and Bipolar II disorder, moderate, depressed, with anxious distress F31.81 [place] [address] [facility] [id number] [address] [place] [id number] 03 Aug, 2017 Bipolar II disorder, moderat e, depressed, with anxious distress F31.81 and BMI 40.0-44.9, adult Z68.41 [place] [address] [facility] [id number] [address] [place] [id number] Jul, [place] [address] [facility] [id number] [address] [place] [phone] Jul, [facility] [address] [facility] [id number] [address] [place] [phone] Jul, Bipolar II disorder, moderat e, depressed, with anxious distress F31.81 ; PTSD (post-traumatic stress disorder) F43.10 and Anxiety F41.9 [place] [address] [address] Jul, Bipolar II disorder, moderat e, depressed, with anxious distress F31.81 [place] [address] [place] [id number] [place] [phone] Jul, Bipolar II disorder, moderat e, depressed, with anxious distress F31.81 and PTSD (post-traumatic stress disorder) F43.10 [place] [address] [address] Jul, Bipolar II disorder, moderat e, depressed, with anxious distress F31.81 [place] [address] [place] [address] Jul, Bipolar II disorder, moderat e, depressed, with anxious distress F31.81 ; PTSD (post-traumatic stress disorder) F43.10 and Anxiety F41.9 [facility] [place] [address] [address] Jul, Mild HTN I10 ; Pedal edema R 60.0 and BMI 40.0-44.9, adult Z68.41 [facility] [address] [place] [id number] [address] [place] [address] Jun, Back pain of lumbar region w ith sciatica M54.40 [facility] [place] [id number] [place] [phone] Jun, Acute nasopharyngitis (commo n cold) J00 IMMUNIZATIONS No Known Immunizations SOCIAL HISTORY Never Assessed REASON FOR VISIT PLAN OF CARE Activity Details Follow Up 3 Weeks Reason:F/U PT VITAL SIGNS MEDICATIONS Unknown Medications RESULTS No Results PROCEDURES Procedure Date Ordered Result Body Site THERAPEUTIC EXERCISES Oct 08, 2018 INSTRUCTIONS MEDICATIONS ADMINISTERED No Known Medications [...]
--- OUTSIDE RECORDS SUMMARY | 2020-01-05 15:54 | XMS REPORT ---
Author Author Geeta JOHNSON [facility] Address [address] [place] [address] Care Team Providers Care Cardiovascular Sonographer Name Role Phone JOHNY JOHNSON Unavailable PROBLEMS Type Condition ICD9-CM Code XTA13-LD Code Onset Dates Condition S tatus SNOMED Code Problem Mild HTN I10 Active 11294517 Problem PTSD (post-traumatic stress disorder) F43.10 Active 37696899 Problem Anxiety F41.9 Active 04552033 Problem Back pain of lumbar region with sciatica M54.40 Active 629123208 Problem Closed fracture of right ank le with routine healing, subsequent encounter S82.891D Active 76325512 Problem Sciatica of left side M54.32 Active 19312271 Problem Bipolar affective disorder, current episode hypomanic F31.0 Active 55054880 Problem Bipolar II disorder, moderate, depressed, with a nxious distress F31.81 Active 79650723 Problem BMI 40.0-44.9, adult Z68.41 Active 348834387 Problem Essential hypertension I10 Active 10450473 ALLERGIES No Information ENCOUNTERS Encounter Location Date Diagnosis [facility] [address] [facility] [id number] [address] [place] [id number] Jul, [facility] [address] [facility] [id number] [address] [place] [phone] Jul, [facility] [address] [facility] [id number] [address] [place] [id number] Jun, Ankle sprain S93.409A [facility] [address] [facility] [id number] [address] [place] [id number] Jun, [facility] [address] [facility] [id number] [address] [place] [phone] Jun, [facility] [address] [facility] [id number] [address] [place] [phone] Jun, Hair loss L65.9 [facility] [address] [facility] [id number] [address] [place] [phone] Jun, Hair loss L65.9 [facility] [address] [facility] [id number] [address] [place] [phone] Jun, [facility] [address] [facility] [id number] [address] [place] [phone] Jun, BMI 45.0-49.9, adult Z68.42 ; Viral illness B34.9 and Pain R52 [place] [address] [facility] [id number] [address] [place] [id number] May, Other injury of muscle(s) an d tendon(s) of peroneal muscle group at lower leg level, right leg, initial encounter S86.391A [place] [address] [place] [id number] [address] [place] [phone] May, Bipolar affective disorder, current episode hypomanic F31.0 and Anxiety F41.9 [place] [address] [place] [id number] [address] [place] [phone] May, [place] [address] [place] [id number] [address] [place] [phone] May, Essential hypertension I10 ; Swelling of lower extremity M79.89 and Peripheral edema R60.9 [place] [address] [place] [id number] [address] [place] [phone] May, BMI 45.0-49.9, adult Z68.42 [place] [address] [facility] [id number] [address] [place] [phone] Apr, BMI 45.0-49.9, adult Z68.42 ; Peripheral edema R60.9 and Right ankle pain, unspecified chronicity M25.571 [facility] [address] [facility] [id number] [address] [place] [phone] Apr, Skin infection L08.9 and BMI 40.0-44.9, adult Z68.41 [facility] [address] [id number] [address] [place] [phone] Feb, [facility] [address] [id number] [address] [place] [phone] Feb, [facility] [address] [id number] [address] [place] [phone] Jan, Back pain of lumbar region w ith sciatica M54.40 and BMI 45.0-49.9, adult Z68.42 [facility] [address] [id number] [address] [place] [phone] Jan, [facility] [address] [id number] [address] [place] [phone] Jan, Closed fracture of right ank le with routine healing, subsequent encounter S82.891D [facility] [address] [id number] [address] [place] [phone] Jan, [facility] [address] [id number] [address] [place] [phone] Jan, [facility] [address] [id number] [address] [place] [phone] December, Closed fracture of right ank le with routine healing, subsequent encounter S82.891D [facility] [address] [facility] [id number] [address] [place] [phone] December, Tendinitis of right peroneus longus tendon M76.71 [facility] [address] [id number] [address] [place] [phone] December, [facility] [address] [id number] [address] [place] [phone] December, Closed fracture of right ank le with routine healing, subsequent encounter S82.891D [facility] [address] [facility] [id number] [address] [place] [phone] December, [facility] [address] [facility] [id number] [address] [place] [phone] December, [facility] [address] [place] [id number] [address] [place] [phone] December, History of fracture of right ankle Z87.81 [facility] [address] [facility] [id number] [address] [place] [phone] December, History of fracture of right ankle Z87.81 [facility] [address] [place] [id number] [address] [place] [phone] Nov, Other closed fracture of dis cierra end of right fibula with routine healing, subsequent encounter S82.831D and BMI 40.0-44.9, adult Z68.41 [facility] [address] [facility] [id number] [address] [place] [phone] Oct, Sciatica of left side M54.32 [place] [address] [place] [id number] [address] [place] [phone] Oct, [place] [address] [place] [id number] [address] [place] [phone] Oct, Bipolar affective disorder, current episode hypomanic F31.0 [place] [address] [place] [id number] [address] [place] [phone] Oct, [facility] [address] [place] [id number] [address] [place] [id number] Oct, PTSD (post-traumatic stress disorder) F43.10 ; Anxiety F41.9 and Bipolar II disorder, moderate, depressed, with anxious distress F31.81 [facility] [address] [place] [id number] [address] [place] [phone] Oct, Other closed fracture of dis cierra end of right fibula with routine healing, subsequent encounter S82.831D and BMI 40.0-44.9, adult Z68.41 [facility] [address] [place] [id number] [address] [place] [phone] Oct, Bipolar affective disorder, current episode hypomanic F31.0 [facility] [address] [id number] [address] [place] [phone] Sep, BMI 40.0-44.9, adult Z68.41 ; Essential hypertension I10 and Other closed fracture of distal end of right fibula with routine healing, subsequent encounter S82.831D [facility] [address] [id number] [address] [place] [phone] Aug, Bipolar II disorder, moderat e, depressed, with anxious distress F31.81 [facility] [address] [id number] [address] [place] [phone] Aug, Bipolar II disorder, moderat e, depressed, with anxious distress F31.81 and BMI 40.0-44.9, adult Z68.41 [facility] [address] [id number] [address] [place] [phone] Aug, Other closed fracture of dis cierra end of right fibula, initial encounter S82.831A [place] [address] [id number] [address] [place] [phone] Aug, Bipolar II disorder, moderat e, depressed, with anxious distress F31.81 and BMI 40.0-44.9, adult Z68.41 [place] [address] [id number] [address] [place] [phone] Aug, [facility] [address] [id number] [address] [place] [phone] Aug, [place] [address] [id number] [address] [place] [id number] Aug, [facility] [address] [id number] [address] [place] [phone] Aug, BMI 40.0-44.9, adult Z68.41 [facility] [address] [id number] [address] [place] [phone] Aug, Anxiety F41.9 ; PTSD (post-t raumatic stress disorder) F43.10 and Bipolar II disorder, moderate, depressed, with anxious distress F31.81 [place] [address] [place] [id number] [address] [place] [phone] 11 Aug, 2017 Dental examination Z01.20 [place] [address] [place] [id number] [address] [place] [id number] 09 Aug, 2017 BMI 40.0-44.9, adult Z68.41 ; Back pain of lumbar region with sciatica M54.40 ; Mild HTN I10 ; Anxiety F41.9 ; Screening for diabetes mellitus (DM) Z13.1 and Screening for lipid disorders Z13.220 [place] [address] [address] 04 Aug, 2017 Anxiety F41.9 ; PTSD (post-t raumatic stress disorder) F43.10 and Bipolar II disorder, moderate, depressed, with anxious distress F31.81 [place] [address] [address] 03 Aug, 2017 Bipolar II disorder, moderat e, depressed, with anxious distress F31.81 and BMI 40.0-44.9, adult Z68.41 [place] [address] [place] [id number] [address] [place] [phone] Jul, [place] [address] [place] [id number] [address] [place] [phone] Jul, [place] [address] [place] [id number] [place] [phone] Jul, Bipolar II disorder, moderat e, depressed, with anxious distress F31.81 ; PTSD (post-traumatic stress disorder) F43.10 and Anxiety F41.9 [place] [address] [place] [id number] [address] [place] [phone] Jul, Bipolar II disorder, moderat e, depressed, with anxious distress F31.81 [place] [address] [address] [place] [id number] [address] [place] [phone] Jul, Bipolar II disorder, moderat e, depressed, with anxious distress F31.81 and PTSD (post-traumatic stress disorder) F43.10 [facility] [address] [place] [id number] [address] [place] [phone] Jul, Bipolar II disorder, moderat e, depressed, with anxious distress F31.81 [facility] [address] [place] [phone] Jul, Bipolar II disorder, moderat e, depressed, with anxious distress F31.81 ; PTSD (post-traumatic stress disorder) F43.10 and Anxiety F41.9 [facility] [address] [place] [id number] [address] [place] [address] Jul, Mild HTN I10 ; Pedal edema R 60.0 and BMI 40.0-44.9, adult Z68.41 [facility] [address] [place] [address] Jun, Back pain of lumbar region w ith sciatica M54.40 [facility] [address] [place] [phone] Jun, Acute nasopharyngitis (commo n cold) J00 IMMUNIZATIONS No Known Immunizations SOCIAL HISTORY Never Assessed REASON FOR VISIT Patient concerns PLAN OF CARE VITAL SIGNS MEDICATIONS Unknown [...]
--- OUTSIDE RECORDS SUMMARY | 2020-01-05 15:54 | XMS REPORT ---
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 Name Role Phone JOHNY JOHNSON Unavailable PROBLEMS Type Condition ICD9-CM Code ZOE40-EN Code Onset Dates Condition S tatus SNOMED Code Problem Mild HTN I10 Active 07187960 Problem PTSD (post-traumatic stress disorder) F43.10 Active 40911569 Problem Anxiety F41.9 Active 75610066 Problem Back pain of lumbar region with sciatica M54.40 Active 852422524 Problem Closed fracture of right ank le with routine healing, subsequent encounter S82.891D Active 77948617 Problem Sciatica of left side M54.32 Active 99442237 Problem Bipolar affective disorder, current episode hypomanic F31.0 Active 11619977 Problem Bipolar II disorder, moderate, depressed, with a nxious distress F31.81 Active 01318760 Problem BMI 40.0-44.9, adult Z68.41 Active 762745094 Problem Essential hypertension I10 Active 24680830 ALLERGIES No Information ENCOUNTERS Encounter Location Date Diagnosis [facility] [address] [facility] [id number] [address] [place] [phone] Jul, [facility] [address] [facility] [id number] [address] [place] [phone] Jul, [facility] [address] [facility] [id number] [address] [place] [phone] Jul, [facility] [address] [facility] [id number] [address] [place] [phone] Jul, Peripheral edema R60.9 [facility] [address] [facility] [id number] [address] [place] [address] Jun, Ankle sprain S93.409A [facility] [address] [address] Jun, [facility] [address] [address] Jun, [facility] [address] [address] Jun, Hair loss L65.9 [facility] [address] [address] Jun, Hair loss L65.9 [facility] [address] [address] Jun, [facility] [address] [address] Jun, BMI 45.0-49.9, adult Z68.42 ; Viral illness B34.9 and Pain R52 [place] [address] [address] May, Other injury of muscle(s) an d tendon(s) of peroneal muscle group at lower leg level, right leg, initial encounter S86.391A [place] [address] [address] May, Bipolar affective disorder, current episode hypomanic F31.0 and Anxiety F41.9 [place] [address] [address] May, [place] [address] [address] May, Essential hypertension I10 ; Swelling of lower extremity M79.89 and Peripheral edema R60.9 [place] [address] [address] May, BMI 45.0-49.9, adult Z68.42 [facility] [address] [address] Apr, BMI 45.0-49.9, adult Z68.42 ; Peripheral edema R60.9 and Right ankle pain, unspecified chronicity M25.571 [facility] [address] [id number] [address] [place] [address] Apr, Skin infection L08.9 and BMI 40.0-44.9, adult Z68.41 [facility] [address] [id number] [address] [place] [address] Feb, [facility] [address] [id number] [address] [place] [address] Feb, [facility] [address] [id number] [address] [place] [address] Jan, Back pain of lumbar region w ith sciatica M54.40 and BMI 45.0-49.9, adult Z68.42 [place] [address] [facility] [id number] [address] [place] [address] Jan, [facility] [address] [id number] [address] [place] [address] Jan, Closed fracture of right ank le with routine healing, subsequent encounter S82.891D [place] [address] [facility] [id number] [address] [place] [address] Jan, [facility] [address] [id number] [address] [place] [address] Jan, [facility] [address] [id number] [address] [place] [address] December, Closed fracture of right ank le with routine healing, subsequent encounter S82.891D [place] [address] [facility] [id number] [address] [place] [address] December, Tendinitis of right peroneus longus tendon M76.71 [facility] [address] [id number] [address] [place] [address] December, [facility] [address] [id number] [address] [place] [phone] December, Closed fracture of right ank le with routine healing, subsequent encounter S82.891D [facility] [address] [facility] [id number] [address] [place] [phone] December, [facility] [address] [id number] [address] [place] [address] December, [facility] [address] [facility] [id number] [address] [place] [address] December, History of fracture of right ankle Z87.81 [place] [address] [id number] [address] [place] [address] December, History of fracture of right ankle Z87.81 [place] [address] [facility] [id number] [address] [place] [address] Nov, Other closed fracture of dis cierra end of right fibula with routine healing, subsequent encounter S82.831D and BMI 40.0-44.9, adult Z68.41 [facility] [address] [id number] [address] [place] [address] Oct, Sciatica of left side M54.32 [place] [address] [facility] [id number] [address] [place] [phone] Oct, [facility] [address] [facility] [id number] [address] [place] [address] Oct, Bipolar affective disorder, current episode hypomanic F31.0 [place] [address] [facility] [id number] [address] [place] [address] Oct, [facility] [address] [facility] [id number] [address] [place] [address] Oct, PTSD (post-traumatic stress disorder) F43.10 ; Anxiety F41.9 and Bipolar II disorder, moderate, depressed, with anxious distress F31.81 [facility] [address] [facility] [id number] [address] [place] [address] Oct, Other closed fracture of dis cierra end of right fibula with routine healing, subsequent encounter S82.831D and BMI 40.0-44.9, adult Z68.41 [facility] [address] [id number] [address] [place] [address] Oct, Bipolar affective disorder, current episode hypomanic F31.0 [facility] [address] [id number] [address] [place] [address] Sep, BMI 40.0-44.9, adult Z68.41 ; Essential hypertension I10 and Other closed fracture of distal end of right fibula with routine healing, subsequent encounter S82.831D [facility] [address] [id number] [address] [place] [address] Aug, Bipolar II disorder, moderat e, depressed, with anxious distress F31.81 [facility] [address] [id number] [address] [place] [address] Aug, Bipolar II disorder, moderat e, depressed, with anxious distress F31.81 and BMI 40.0-44.9, adult Z68.41 [facility] [address] [id number] [address] [place] [address] Aug, Other closed fracture of dis cierra end of right fibula, initial encounter S82.831A [facility] [address] [id number] [address] [place] [address] Aug, Bipolar II disorder, moderat e, depressed, with anxious distress F31.81 and BMI 40.0-44.9, adult Z68.41 [facility] [address] [id number] [address] [place] [address] Aug, [facility] [address] [id number] [address] [place] [address] Aug, [facility] [address] [id number] [address] [place] [address] Aug, [facility] [address] [id number] [address] [place] [address] Aug, BMI 40.0-44.9, adult Z68.[address] [address] Aug, Anxiety F41.9 ; PTSD (post-t raumatic stress disorder) F43.10 and Bipolar II disorder, moderate, depressed, with anxious distress F31.[address] [address] 11 Aug, 2017 Dental examination Z01.[address] [address] 09 Aug, 2017 BMI 40.0-44.9, adult Z68.41 ; Back pain of lumbar region with sciatica M54.40 ; Mild HTN I10 ; Anxiety F41.9 ; Screening for diabetes mellitus (DM) Z13.1 and Screening for lipid disorders Z13.[address] [address] Aug, Anxiety F41.9 ; PTSD (post-t raumatic stress disorder) F43.10 and Bipolar II disorder, moderate, depressed, with anxious distress F31.[address] [address] Aug, Bipolar II disorder, moderat e, depressed, with anxious distress F31.81 and BMI 40.0-44.9, adult Z68.41 [place] [address] [address] Jul, [place] [address] [address] Jul, [address] [address] Jul, Bipolar II disorder, moderat e, depressed, with anxious distress F31.81 ; PTSD (post-traumatic stress disorder) F43.10 and Anxiety F41.[address] [place] [address] 15 Jul, 2017 Bipolar II disorder, moderat e, depressed, with anxious distress F31.81 [facility] [address] [place], [place] [address] Jul, Bipolar II disorder, moderat e, depressed, with anxious distress F31.81 and PTSD (post-traumatic stress disorder) F43.10 [place] [address] [address] Jul, Bipolar II disorder, moderat e, depressed, with anxious distress F31.[address] Jul, Bipolar II disorder, moderat e, depressed, with anxious distress F31.81 ; PTSD (post-traumatic stress disorder) F43.10 and Anxiety F41.9 [facility] [address] [address] Jul, Mild HTN I10 ; Pedal edema R 60.0 and BMI 40.0-44.9, adult Z68.41 [facility] [address] [address] Jun, Back pain of lumbar region w ith sciatica M54.40 [facility] [address] [address] Jun, Acute nasopharyngitis (commo n cold) J00 IMMUNIZATIONS No Known Immunizations SOCIAL HISTORY Never Assessed REASON FOR VISIT Refill Request PLAN OF CARE VITAL SIGNS MEDICATIONS Medication Instructions Dosage Frequency Start Date End Date Duration S tatus Hydrochlorothiazide 12.5 MG Orally Once a day 1 tablet in the morni ng 24h Apr, Active RESULTS No Results PROCEDURES No Known [...]
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
[2020-01-05 16:00] VITALS: BP 156/98
[2020-01-05] MEDS ORDERED: HYDR-83 PO (16:07)
--- NOTE | 2020-01-05 16:07 | ED General ---
General Stated Complaint: RT AXIAL ABSCESS History of Present Illness Date Seen by Provider: January 05, 2020 Time Seen by Provider: 16:03 Initial Comments Patient presenting to emergency department for evaluation of right axillary pain that she has been dealing with since September and she has had multiple tests done including to ultrasounds and they have deemed that she has a lymph node growth and she is being referred to a general surgeon for a biopsy which she is planning to be done hopefully later this week. Patient says that she is here because she has had too much pain and she is tired of dealing with the pain and all she is taking is Tylenol as her doctors have not prescribed her anything. She denies any new swelling fevers chills nausea vomiting or other systemic symptoms. Allergies and Home Medications Allergies Coded Allergies: No Known Drug Allergies (Unverified , 04/03/18) Home Medications Amoxicillin 500 Mg Tablet, 500 MG PO TID Prescribed by: AVEL CABRERA on 04/10/18 1223 Hydrochlorothiazide 25 Mg Tablet, 25 MG PO DAILY Prescribed by: AVEL CABRERA on 07/10/17 1348 Hydrocodone/Acetaminophen 1 Each Tablet, 1 EACH PO Q4H PRN for PAIN-SEVERE Prescribed by: AVEL CABRERA on 09/02/17 1306 Hydrocodone/Acetaminophen 1 Each Tablet, 1 EACH PO Q4H PRN for PAIN-MILD Prescribed by: AVEL CABRERA on 04/10/18 1223 Naproxen 500 Mg Tablet, 500 MG PO BID PRN for pain Prescribed by: RODOLFO GOMEZ on 09/01/17 1821 Naproxen 500 Mg Tablet, 500 MG PO BID Prescribed by: JANESSA RINCON on 04/03/18 0232 Patient Home Medication List Home Medication List Reviewed: Yes Review of Systems Review of Systems Constitutional: no symptoms reported Respiratory: no symptoms reported Cardiovascular: no symptoms reported Gastrointestinal: no symptoms reported Skin: lumps All Other Systems Reviewed Negative Unless Noted: Yes Past Okxijpq-Efdixy-Molqhu Hx Patient Social History Type Used: Cigarettes Recent Foreign Travel: No Contact w/Someone Who Travel: No Recent Hopitalizations: No Immunizations Up To Date Tetanus Booster (TDap): Unknown PED Vaccines UTD: Yes Past Medical History Surgeries: Yes (RIGHT ANKLE SURGERY ; X 3) Section, Orthopedic, Tubal Ligation Respiratory: No Cardiac: Yes Hypertension 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 oz. 108.479149zq; BMI Method:Stated General Appearance: No Apparent Distress, WD/WN, Anxious Respiratory: No Respiratory Distress Cardiovascular: Regular Rate, Rhythm Extremity: Normal Capillary Refill Neurologic/Psychiatric: Alert, Oriented x3 Skin: Warm/Dry, Other (in right axillary region there is a palpable lymph nodes but there is no overlying induration and erythema or significant swelling. She does have pain to palpation to the lymph node. ) Procedures/Interventions Dental Procedures: Dental I&D Progress/Results/Core Measures Suspected Sepsis SIRS Temperature: Pulse: Respiratory Rate: Blood Pressure / Mean: Results/Orders My Orders Orders - GAGAN COLINDRES DO Hydrocodone/Apap 5/325 Tablet (Lortab 5 (01/05/20 16:15) Vital Signs/I&O Capillary Refill : Progress Note : Progress Note Patient is getting the appropriate testing and treatment at this time but she is here for pain control so I gave her [place] here and will prescribe her [place] and told her to keep all of her follow-up appointments and come back to the ED sooner with worsening pain swelling fevers or other general concerns. Patient aware and agreeable with plan and verbalized understanding of the above instructions. Departure Impression Primary Impression: Axillary lymphadenopathy Disposition: 01 HOME, SELF-CARE Condition: Stable Departure-Patient Inst. Referrals: NO,LOCAL PHYSICIAN (PCP/Family) Primary Care Physician Patient Instructions: Lymphadenitis (DC) Scripts Hydrocodone/Acetaminophen (Hydrocodone-Acetamin 5-325 mg) 1 Each Tablet 1 EACH PO Q6H PRN for PAIN-SEVERE (8-10), #14 TAB Prov: GAGAN COLINDRES DO 01/05/20 GAGAN COLINDRES DO January 05, 2020 16:07
[2020-01-05] MEDS ORDERED: HYDROcodone/APAP 5 MG/325 MG (LORTAB) TAB PO ONE (16:15)
== END 2020-01-05 16:18 | disposition home or self-care (01) ==
LOC: EDUNIT# 15:41 → ER FS 15:44
DX: R59.0 Localized enlarged lymph nodes (principal); I10 Essential (primary) hypertension
CPT/HCPCS: 99283

== ENCOUNTER 2020-01-07 16:47 | Emergency (ER) | payer MEDICAID ==
[~2020-01-07] VITALS: Ht 165 cm; Wt 136.0 kg
[~2020-01-07 16:47] MED LIST changes: +HYDR-83 PO; -LISI-552; +LISI-552 PO
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
[2020-01-07] MEDS ORDERED: HYDR-83 PO (17:41)
[2020-01-07 17:43] VITALS: BP 115/78
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
[2020-01-10] MEDS ORDERED: CARI3CAP PO (11:40)
[2020-01-10] MEDS ORDERED: HYDR25TA4 PO (11:40)
[2020-01-10] MEDS ORDERED: AMIT50TA3 PO (11:40)
[2020-01-10] MEDS ORDERED: L.AC1CAP6 PO (11:40)
[2020-01-10] MEDS ORDERED: TIZA4CAP8 PO (11:40)
[2020-01-10] MEDS ORDERED: MELO7.5T46 PO (11:40)
== END 2020-01-07 17:49 | disposition home or self-care (01) ==
LOC: EDUNIT# 16:47 → ER 16:49
DX: R22.2 Localized swelling, mass and lump, trunk (principal); I10 Essential (primary) hypertension; F17.210 Nicotine dependence, cigarettes, uncomplicated
CPT/HCPCS: 99281

== ENCOUNTER 2020-01-13 07:31 | Outpatient (RCR) | payer MEDICAID ==
[~2020-01-13] VITALS: Ht 165 cm; Wt 133.0 kg
[~2020-01-13 07:31] MED LIST changes: +AMIT50TA3 PO; +CARI3CAP PO; +L.AC1CAP6 PO; +MELO7.5T46 PO; +TIZA4CAP8 PO
[2020-01-16] MEDS ORDERED: HYDR-4226 PO (12:42)
== END 2020-01-13 14:41 | disposition home or self-care (01) ==
LOC: PREOP 07:31
PROVIDERS: ATTEND Surgery
DX: Z01.812 Encounter for preprocedural laboratory examination (principal); Z11.59 Encounter for screening for other viral diseases; R22.9 Localized swelling, mass and lump, unspecified
CPT/HCPCS: 87635

== ENCOUNTER → 2021-02-03 | Outpatient (CLI) | payer MEDICAID ==
[~2021-02-03] MED LIST changes: +ACHD5005 PO; -HYDR-83 PO; -LISI-552 PO; +LISI20TA26 PO
== END ==
LOC: CARD 14:30
PROVIDERS: ATTEND Internal Medicine Cardiovascular Disease
DX: I10 Essential (primary) hypertension (principal); I25.10 Atherosclerotic heart disease of native coronary artery without angina pectoris
CPT/HCPCS: 93306

== ENCOUNTER 2021-03-15 02:40 | Emergency (ER) | payer MEDICAID ==
[~2021-03-15] VITALS: Ht 162 cm; Wt 102.3 kg
[2021-03-15] MEDS ORDERED: TRAM-42 PO (03:29)
[2021-03-15] MEDS ORDERED: CEFD300C3 PO (03:29)
[2021-03-15] MEDS ORDERED: CEFDINIR 300 MG (OMNICEF) CAP PO ONE (03:30)
--- NOTE | 2021-03-15 03:30 | ED EENT ---
History of Present Illness General Chief Complaint: Ear Problems Stated Complaint: RT EAR PAIN Nursing Triage Note: pt seens by [facility] last monday, last monday and yesterday for persistent r ear pain with drainage. pt states she finished a course of antibiotics yesterday Allergies and Home Medications Allergies Coded Allergies: No Known Drug Allergies (Unverified , 01/10/20) Home Medications Amitriptyline HCl 50 Mg Tablet, 50 MG PO HS, (Reported) Cariprazine Hydrochloride 3 Mg Capsule, 3 MG PO DAILY, (Reported) Cefdinir 300 Mg Capsule, 300 MG PO BID Prescribed by: JANESSA RINCON on 03/15/21 0329 Hydrochlorothiazide 25 Mg Tablet, 25 MG PO DAILY, (Reported) Hydrocodone/Acetaminophen 1 Each Tablet, 1 TAB PO Q4-6HR Prescribed by: CHINYERE WATERS on 01/16/20 1242 L.acidoph & ParacheB.lactis 1 Each Capsule, 1 EACH PO DAILY, (Reported) Lisinopril 20 Mg Tablet, 20 MG PO DAILY, (Reported) Meloxicam 7.5 Mg Tablet, 7.5 MG PO BID, (Reported) Tizanidine HCl 4 Mg Capsule, 4 MG PO TID PRN for PAIN-MODERATE (5-7), (Reported) Tramadol HCl 50 Mg Tablet, 50 MG PO Q4H Prescribed by: JANESSA RINCON on 03/15/21 0330 Past Kdajjqu-Caqwrx-Znzhrs Hx Patient Social History Tobacco Use?: Yes Tobacco type used: Cigarettes Smoking Status: Current Everyday Smoker Substance use?: No Alcohol Use?: No Immunizations Up To Date Tetanus Booster (TDap): Unknown PED Vaccines UTD: Yes Influenza Vaccine Up-to-Date: Yes; Up-to-Date Seasonal Allergies Seasonal Allergies: No Past Medical History Surgeries: Yes (RIGHT ANKLE SURGERY ; X 3, I&D OF SECTION INCISION) Section, Orthopedic, Tubal Ligation Respiratory: No Cardiac: Yes Hypertension 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 Sexually Transmitted Disease: No HIV/AIDS: No Genitourinary: No Gastrointestinal: Yes Chronic Constipation, Irritable Bowel Musculoskeletal: Yes (SCIATICA; RIGHT ANKLE SURGERY FOR TORN TENDON) Endocrine: No HEENT: Yes (GLASSES) Loss of Vision: Denies Hearing Impairment: Denies Cancer: No Psychosocial: Yes Anxiety, Depression Integumentary: No Blood Disorders: No Adverse Reaction/Blood Tranf: No (N/A) Physical Exam Vital Signs Vital Signs - First Documented 03/15/21 03:09 Temp 36.6 Pulse 85 Resp 18 B/P (MAP) 115/63 (80) Pulse Ox 98 O2 Delivery Room Air Height, Weight, BMI Height: 5'4.00" Weight: 240lbs. oz. 108.579673ea; 38.00 BMI Method:Stated Procedures/Interventions Dental Procedures: Dental I&D Progress/Results/Core Measures Results/Orders My Orders Orders - JANESSA RINCON DO Cefdinir Capsule (Omnicef Capsule) (03/15/21 03:30) Rx-Tramadol Hcl (Rx-Ultram) (03/15/21 03:27) Vital Signs/I&O 03/15/21 03:09 Temp 36.6 Pulse 85 Resp 18 B/P (MAP) 115/63 (80) Pulse Ox 98 O2 Delivery Room Air Blood Pressure Mean: 80 Departure Impression Primary Impression: Right otitis externa Additional Impression: Left otitis media Disposition: 01 HOME, SELF-CARE Condition: Stable Departure-Patient Inst. Decision time for Depature: 03:28 Referrals: [facility] (PCP) Primary Care Physician BAR AVINA APRN (Family) Primary Care Physician Patient Instructions: Ear Infection ED, How to Use Ear Drops, Outer Ear Infection ED Add. Discharge Instructions: CONTINUE EAR DROPS PRESCRIBED CONTINUE TYLENOL 1 GRAM / MOTRIN 800 MG 4 TIMES A DAY FOR PAIN FOLLOW UP WITH [facility] IN 2-3 DAYS FOR FURTHER CARE All discharge instructions reviewed with patient and/or family. Voiced understanding. Scripts Tramadol HCl (Ultram) 50 Mg Tablet 50 MG PO Q4H for Pain, #12 TAB Prov: JANESSA RINCON DO 03/15/21 Cefdinir (Cefdinir) 300 Mg Capsule 300 MG PO BID, #20 CAP Prov: CARL RINCONA K DO 03/15/21 JANESSA RINCON DO Mar 15, 2021 03:30
[2021-03-15 03:40] VITALS: BP 115/63
--- OUTSIDE RECORDS SUMMARY | 2021-03-18 03:56 | XMS REPORT | Clinical Summary ---
Author Author [facility] Organization [facility] Address Unknown Phone Unavailable Care Team Providers Care Allied Health Instructor Name Role Phone PCP Unavailable Allergies Not on File Medications Not on file Active Problems Not on file Social History Date Tobacco Use Types Packs/Day Years Used Never Assessed Sex Assigned at Date Recorded Not on file Last Filed Vital Signs Not on file Plan of Treatment Not on file Results Not on filefrom Last 3 Months
== END 2021-03-15 03:40 | disposition home or self-care (01) ==
LOC: EDUNIT# 02:40 → ER 02:45
DX: H60.91 Unspecified otitis externa, right ear (principal); H66.92 Otitis media, unspecified, left ear; I10 Essential (primary) hypertension; F41.9 Anxiety disorder, unspecified; F32.9 Major depressive disorder, single episode, unspecified; F17.210 Nicotine dependence, cigarettes, uncomplicated; Z79.899 Other long term (current) drug therapy
CPT/HCPCS: 99283

== ENCOUNTER 2021-04-03 20:11 | Emergency (ER) | payer MEDICAID ==
[~2021-04-03] VITALS: Ht 162.6 cm; Wt 136.1 kg
[~2021-04-03 20:11] MED LIST changes: +CEFD300C3 PO; +TRAM-42 PO
--- NOTE | 2021-04-03 21:29 | ED Lower Extremity ---
General Stated Complaint: SWOLLEN LEGS/ ANKLES/ FEET Source: patient Exam Limitations: no limitations History of Present Illness Date Seen by Provider: Apr 03, 2021 Time Seen by Provider: 21:27 Initial Comments To ER with swollen legs bilaterally for 2 to 3 days. No known cause though this has happened before. She is already on Lasix and hydrochlorothiazide. The cause of this happening previously was never determined. No fevers no chills no chest pain no shortness of breath. She states that she is had an echocardiogram and cardiac work-up to evaluate without finding. Onset: this evening Severity: moderate Pain/Injury Location: bilateral leg, bilateral ankle Method of Injury: unknown Modifying Factors: Worse With Movement Allergies and Home Medications Allergies Coded Allergies: No Known Drug Allergies (Unverified , 01/10/20) Home Medications Amitriptyline HCl 50 Mg Tablet, 50 MG PO HS, (Reported) Cariprazine Hydrochloride 3 Mg Capsule, 3 MG PO DAILY, (Reported) Cefdinir 300 Mg Capsule, 300 MG PO BID Prescribed by: JANESSA RINCON on 03/15/21 0329 Hydrochlorothiazide 25 Mg Tablet, 25 MG PO DAILY, (Reported) Hydrocodone/Acetaminophen 1 Each Tablet, 1 TAB PO Q4-6HR Prescribed by: CHINYERE WATERS on 01/16/20 1242 L.acidoph & Paracasei,B.lactis 1 Each Capsule, 1 EACH PO DAILY, (Reported) Lisinopril 20 Mg Tablet, 20 MG PO DAILY, (Reported) Meloxicam 7.5 Mg Tablet, 7.5 MG PO BID, (Reported) Tizanidine HCl 4 Mg Capsule, 4 MG PO TID PRN for PAIN-MODERATE (5-7), (Reported) Tramadol HCl 50 Mg Tablet, 50 MG PO Q4H Prescribed by: JANESSA RINCON on 03/15/21 0330 Patient Home Medication List Home Medication List Reviewed: Yes Review of Systems Constitutional: see HPI EENTM: see HPI Respiratory: no symptoms reported Cardiovascular: no symptoms reported Genitourinary: no symptoms reported Musculoskeletal: see HPI Skin: no symptoms reported Psychiatric/Neurological: No Symptoms Reported Past Ugzduzv-Pkltzp-Xlhmyh Hx Immunizations Up To Date Tetanus Booster (TDap): Unknown PED Vaccines UTD: Yes Seasonal Allergies Seasonal Allergies: No Past Medical History Surgeries: Yes (RIGHT ANKLE SURGERY ; X 3, I&D OF SECTION INCISION) Section, Orthopedic, Tubal Ligation Respiratory: No Cardiac: Yes Hypertension 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 Sexually Transmitted Disease: No HIV/AIDS: No Genitourinary: No Gastrointestinal: Yes Chronic Constipation, Irritable Bowel Musculoskeletal: Yes (SCIATICA; RIGHT ANKLE SURGERY FOR TORN TENDON) Endocrine: No HEENT: Yes (GLASSES) Loss of Vision: Denies Hearing Impairment: Denies Cancer: No Psychosocial: Yes Anxiety, Depression Integumentary: No Blood Disorders: No Adverse Reaction/Blood Tranf: No (N/A) Physical Exam Vital Signs Vital Signs - First Documented 04/03/21 21:15 Temp 36.4 Pulse 90 Resp 18 B/P (MAP) 136/86 (103) O2 Delivery Room Air Capillary Refill : Height, Weight, BMI Height: 5'4.00" Weight: 240lbs. oz. 108.364187ed; 38.00 BMI Method:Stated General Appearance: WD/WN, no apparent distress HEENT: PERRL/EOMI, normal ENT inspection Respiratory: no respiratory distress, no accessory muscle use Hips: bilateral hip non-tender, bilateral hip normal inspection, bilateral hip normal range of motion Legs: bilateral leg pain, bilateral leg soft tissue tenderness, bilateral leg swelling, bilateral leg other (1+ pitting edeme BLE, no erythema) Knees: bilateral knee non-tender, bilateral knee normal inspection, bilateral knee normal range of motion Ankles: bilateral ankle non-tender, bilateral ankle normal inspection, bilateral ankle normal range of motion Feet: bilateral foot non-tender, bilateral foot normal inspection, bilateral foot normal range of motion Neurologic/Psychiatric: alert, normal mood/affect, oriented x 3 Skin: normal color, warm/dry Procedures/Interventions Dental Procedures: Dental I&D Progress/Results/Core Measures Results/Orders Lab Results Laboratory Tests Test 04/03/21 21:25 Range/Units White Blood Count 16.0 H 4.3-11.0 10^3/uL Red Blood Count 4.40 3.80-5.11 10^6/uL Hemoglobin 12.7 11.5-16.0 g/dL Hematocrit 38 35-52 % Mean Corpuscular Volume 87 80-99 fL Mean Corpuscular Hemoglobin 29 25-34 pg Mean Corpuscular Hemoglobin Concent 33 32-36 g/dL Red Cell Distribution Width 14.8 H 10.0-14.5 % Platelet Count 395 130-400 10^3/uL Mean Platelet Volume 8.8 L 9.0-12.2 fL Immature Granulocyte % (Auto) 1 % Neutrophils (%) (Auto) 65 42-75 % Lymphocytes (%) (Auto) 28 12-44 % Monocytes (%) (Auto) 5 0-12 % Eosinophils (%) (Auto) 1 0-10 % Basophils (%) (Auto) 1 0-10 % Neutrophils # (Auto) 10.3 H 1.8-7.8 10^3/uL Lymphocytes # (Auto) 4.4 H 1.0-4.0 10^3/uL Monocytes # (Auto) 0.9 0.0-1.0 10^3/uL Eosinophils # (Auto) 0.2 0.0-0.3 10^3/uL Basophils # (Auto) 0.1 0.0-0.1 10^3/uL Immature Granulocyte # (Auto) 0.2 H 0.0-0.1 10^3/uL Neutrophils % (Manual) 75 % Lymphocytes % (Manual) 20 % Monocytes % (Manual) 4 % Basophils % (Manual) 1 % Blood Morphology Comment NORMAL Sodium Level 137 135-145 MMOL/L Potassium Level 3.9 3.6-5.0 MMOL/L Chloride Level 98 98-107 MMOL/L Carbon Dioxide Level 26 21-32 MMOL/L Anion Gap 13 5-14 MMOL/L Blood Urea Nitrogen 28 H 7-18 MG/DL Creatinine 1.08 0.60-1.30 MG/DL Estimat Glomerular Filtration Rate 57 BUN/Creatinine Ratio 26 Glucose Level 89 70-105 MG/DL Calcium Level 9.4 8.5-10.1 MG/DL Corrected Calcium 9.4 8.5-10.1 MG/DL Total Bilirubin 0.2 0.1-1.0 MG/DL Aspartate Amino Transf (AST/SGOT) 19 5-34 U/L Alanine Aminotransferase (ALT/SGPT) 22 0-55 U/L Alkaline Phosphatase 110 40-136 U/L B-Type Natriuretic Peptide 18.7 <100.0 PG/ML Total Protein 7.6 6.4-8.2 GM/DL Albumin 4.0 3.2-4.5 GM/DL Procalcitonin 0.02 <0.10 NG/ML Thyroid Stimulating Hormone (TSH) 0.70 0.35-4.94 UIU/ML Free Thyroxine 0.99 0.70-1.48 NG/DL Serum Test, Qualitative NEGATIVE NEGATIVE My Orders Orders - AVEL CABRERA APRN Cbc With Automated Diff (04/03/21 21:23) Hcg,Qualitative Serum (04/03/21 21:23) Comprehensive Metabolic Panel (04/03/21 21:23) Ed Iv/Invasive Line Start (04/03/21 21:23) BNP (04/03/21 21:23) Thyroid Stimulating Hormone (04/03/21 21:23) Free T4 (Free Thyroxine) (04/03/21 21:23) Hydrocodone/Apap 5/325 Tablet (Lortab 5 (04/03/21 21:30) Manual Differential (04/03/21 21:25) Procalcitonin (Pct) (04/03/21 21:52) Rx-Hydrocodone/Apap 5-325 Mg (Rx-Vicodin (04/03/21 22:45) Medications Given in ED Current Medications Medications Dose Ordered Sig/Kash Route Start Time Stop Time Status Last Admin Dose Admin Acetaminophen/ Hydrocodone Bitart 1 ea ONCE ONCE PO 04/03/21 21:30 04/03/21 21:31 DC 04/03/21 21:42 1 EA Vital Signs/I&O 04/03/21 21:15 Temp 36.4 Pulse 90 Resp 18 B/P (MAP) 136/86 (103) O2 Delivery Room Air Departure Communication (Admissions) [id number] to find the cause for the pedal edema. She does seem to be a little dehydrated. Likely the Lasix and hydrochlorothiazide is a bit much. I told her to skip the Lasix for the next 2 days and increase water intake. Elevate lower extremities and we gave her a pair of large knee-high compression stockings to wear here. She will follow up with primary care next week. Impression Primary Impression: Pedal edema Disposition: HOME, SELF-CARE Condition: Stable Departure-Patient Inst. Decision time for Depature: 21:29 Referrals: [facility] (PCP) Primary Care Physician BAR AVINA APRN (Family) Primary Care Physician Patient Instructions: Swelling AVEL CABRERA APRN Apr 03, 2021 21:29
[2021-04-03] MEDS ORDERED: HYDROcodone/APAP 5 MG/325 MG (LORTAB) TAB PO ONE (21:30)
[2021-04-03 21:39] LABS: BASOPHILS # (AUTO) 0.1 10^3/uL (0.0-0.1); BASOPHILS % (AUTO) 1 % (0-10); EOSINOPHILS # (AUTO) 0.2 10^3/uL (0.0-0.3); EOSINOPHILS % (AUTO) 1 % (0-10); HEMATOCRIT 38 % (35-52); HEMOGLOBIN 12.7 g/dL (11.5-16.0); LYMPHOCYTES # (AUTO) 4.4 10^3/uL (1.0-4.0); LYMPHOCYTES % (AUTO) 28 % (12-44); MEAN CORPUSCULAR HEMOGLOBIN 29 pg (25-34); MEAN CORPUSCULAR HGB CONC 33 g/dL (32-36); MEAN CORPUSCULAR VOLUME 87 fL (80-99); MEAN PLATELET VOLUME 8.8 fL (9.0-12.2); MONOCYTES # (AUTO) 0.9 10^3/uL (0.0-1.0); MONOCYTES % (AUTO) 5 % (0-12); NEUTROPHILS # (AUTO) 10.3 10^3/uL (1.8-7.8); NEUTROPHILS % (AUTO) 65 % (42-75); PLATELET COUNT 395 10^3/uL (130-400)
[2021-04-03 21:57] LABS: BASOPHILS % (MANUAL) 1 %; LYMPHOCYTES % (MANUAL) 20 %; MONOCYTES % (MANUAL) 4 %; NEUTROPHILS % (MANUAL) 75 %; RBC MORPH NORMAL
[2021-04-03 22:00] LABS: BILIRUBIN,TOTAL 0.2 MG/DL (0.1-1.0); CALCIUM 9.4 MG/DL (8.5-10.1); CREATININE SERUM 1.08 MG/DL (0.60-1.30); POTASSIUM 3.9 MMOL/L (3.6-5.0); TOTAL PROTEIN 7.6 GM/DL (6.4-8.2)
[2021-04-03 22:20] LABS: FREE T4 (FREE THYROXINE) 0.99 NG/DL (0.70-1.48)
[2021-04-03 23:10] VITALS: BP 128/84
== END 2021-04-03 23:10 | disposition home or self-care (01) ==
LOC: EDUNIT# 20:11 → ER 20:13
DX: R60.9 Edema, unspecified (principal); I10 Essential (primary) hypertension; F41.9 Anxiety disorder, unspecified; F32.9 Major depressive disorder, single episode, unspecified; Z79.899 Other long term (current) drug therapy
CPT/HCPCS: 36415; 80053; 83880; 84145; 84439; 84443; 84703; 85007; 85027

== ENCOUNTER 2021-04-10 13:33 | Emergency (ER) | payer MEDICAID ==
[~2021-04-10] VITALS: Ht 162.5 cm; Wt 143.3 kg
--- NOTE | 2021-04-10 13:59 | ED General ---
General Stated Complaint: UPPER/L EXT SWELLING Source of Information: Patient Exam Limitations: No Limitations History of Present Illness Date Seen by Provider: Apr 10, 2021 Time Seen by Provider: 13:45 Initial Comments Patient is a 40-year-old female who presents to the emergency department today with a chief complaint of lower extremity swelling and all over swelling increasing in the last couple of days. Patient has been following with [facility], Dr. Tubbs for some renal issues. 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 She states that when she woke up this morning she felt like her eyes were almost swollen shut. He recently changed her diuretic from Lasix to a diuretic that starts with an "S" (?spironolactone). She is also on hydrochlorothiazide. Patient states she was told if she urinates less than 3 times in a 24-hour period she should come to the emergency room. She states she is only urinated once in 6 AM and nothing over the night. She denies any dysuria, urgency, hematuria. No abnormal vaginal discharge. No abdominal pain. She is having muscle pain especially in her low back. She did receive her second Covid vaccination a couple of days ago. Denies chest pain, shortness of breath, productive cough, congestion. States she had a little vague chest discomfort a couple of days ago. Normal bowel movements. She is on medications for hypertension. She states she is not a diabetic. No sick contacts. All other review of systems reviewed and negative except as stated above Timing/Duration: 2-3 Days Severity: Moderate Associated Systoms: Malaise, Other (muscle aches) Allergies and Home Medications Allergies Coded Allergies: No Known Drug Allergies (Unverified , 04/10/21) Home Medications Amitriptyline HCl 50 Mg Tablet, 50 MG PO HS, (Reported) Cariprazine Hydrochloride 3 Mg Capsule, 3 MG PO DAILY, (Reported) Cefdinir 300 Mg Capsule, 300 MG PO BID Prescribed by: JANESSA RINCON on 03/15/21 0329 Hydrochlorothiazide 25 Mg Tablet, 25 MG PO DAILY, (Reported) Hydrocodone/Acetaminophen 1 Each Tablet, 1 TAB PO Q4-6HR Prescribed by: CHINYERE WATERS on 01/16/20 1242 L.acidoph & Paracasei,B.lactis 1 Each Capsule, 1 EACH PO DAILY, (Reported) Lisinopril 20 Mg Tablet, 20 MG PO DAILY, (Reported) Meloxicam 7.5 Mg Tablet, 7.5 MG PO BID, (Reported) Tizanidine HCl 4 Mg Capsule, 4 MG PO TID PRN for PAIN-MODERATE (5-7), (Reported) Tramadol HCl 50 Mg Tablet, 50 MG PO Q4H Prescribed by: JANESSA RINCON on 03/15/21 0330 Patient Home Medication List Home Medication List Reviewed: Yes Review of Systems Review of Systems Constitutional: see HPI EENTM: no symptoms reported Respiratory: no symptoms reported Cardiovascular: no symptoms reported Gastrointestinal: no symptoms reported Genitourinary: decreased output, other (swelling) : No Musculoskeletal: muscle pain Skin: no symptoms reported Psychiatric/Neurological: No Symptoms Reported All Other Systems Reviewed Negative Unless Noted: Yes Past Mquwavi-Zpoqri-Prgkgb Hx Immunizations Up To Date Tetanus Booster (TDap): Unknown PED Vaccines UTD: Yes Seasonal Allergies Seasonal Allergies: No Past Medical History Surgeries: Yes (RIGHT ANKLE SURGERY ; X 3, I&D OF SECTION INCISION) Section, Orthopedic, Tubal Ligation Respiratory: No Cardiac: Yes Hypertension 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 Sexually Transmitted Disease: No HIV/AIDS: No Genitourinary: No Gastrointestinal: Yes Chronic Constipation, Irritable Bowel Musculoskeletal: Yes (SCIATICA; RIGHT ANKLE SURGERY FOR TORN TENDON) Endocrine: No HEENT: Yes (GLASSES) Loss of Vision: Denies Hearing Impairment: Denies Cancer: No Psychosocial: Yes Anxiety, Depression Integumentary: No Blood Disorders: No Adverse Reaction/Blood Tranf: No (N/A) Physical Exam Vital Signs Vital Signs - First Documented 04/10/21 13:45 Temp 35.4 Pulse 86 Resp 18 B/P (MAP) 109/53 (71) Pulse Ox 96 Capillary Refill : Height, Weight, BMI Height: 5'4.00" Weight: 240lbs. oz. 108.570169fn; 51.00 BMI Method:Stated General Appearance: WD/WN, Anxious Eyes: Bilateral Eye Normal Inspection, Bilateral Eye PERRL, Bilateral Eye EOMI HEENT: PERRL/EOMI Neck: Normal Inspection Respiratory: Lungs Clear, Normal Breath Sounds, No Accessory Muscle Use, No Respiratory Distress Cardiovascular: Regular Rate, Rhythm, Other (LE edema to calves) Gastrointestinal: Non Tender, Soft Extremity: Normal Capillary Refill, Normal Inspection, Pedal Edema (1-2+ bilateral to mid calves) Neurologic/Psychiatric: Alert, Oriented x3, Other (tearful) Skin: Normal Color, Warm/Dry Procedures/Interventions Dental Procedures: Dental I&D Progress/Results/Core Measures Suspected Sepsis SIRS Temperature: Pulse: Respiratory Rate: Laboratory Tests 04/10/21 13:50: White Blood Count 11.2H Blood Pressure / Mean: Laboratory Tests 04/10/21 13:50: Creatinine 0.81, Platelet Count 356 Results/Orders Lab Results Laboratory Tests Test 04/10/21 13:50 04/10/21 14:55 Range/Units White Blood Count 11.2 H 4.3-11.0 10^3/uL Red Blood Count 4.04 3.80-5.11 10^6/uL Hemoglobin 11.7 11.5-16.0 g/dL Hematocrit 36 35-52 % Mean Corpuscular Volume 88 80-99 fL Mean Corpuscular Hemoglobin 29 25-34 pg Mean Corpuscular Hemoglobin Concent 33 32-36 g/dL Red Cell Distribution Width 14.7 H 10.0-14.5 % Platelet Count 356 130-400 10^3/uL Mean Platelet Volume 9.7 9.0-12.2 fL Immature Granulocyte % (Auto) 0 % Neutrophils (%) (Auto) 65 42-75 % Lymphocytes (%) (Auto) 25 12-44 % Monocytes (%) (Auto) 7 0-12 % Eosinophils (%) (Auto) 2 0-10 % Basophils (%) (Auto) 1 0-10 % Neutrophils # (Auto) 7.2 1.8-7.8 10^3/uL Lymphocytes # (Auto) 2.8 1.0-4.0 10^3/uL Monocytes # (Auto) 0.8 0.0-1.0 10^3/uL Eosinophils # (Auto) 0.2 0.0-0.3 10^3/uL Basophils # (Auto) 0.1 0.0-0.1 10^3/uL Immature Granulocyte # (Auto) 0.1 0.0-0.1 10^3/uL Sodium Level 137 135-145 MMOL/L Potassium Level 4.5 3.6-5.0 MMOL/L Chloride Level 104 98-107 MMOL/L Carbon Dioxide Level 24 21-32 MMOL/L Anion Gap 9 5-14 MMOL/L Blood Urea Nitrogen 18 7-18 MG/DL Creatinine 0.81 0.60-1.30 MG/DL Estimat Glomerular Filtration Rate 79 BUN/Creatinine Ratio 22 Glucose Level 105 70-105 MG/DL Calcium Level 8.9 8.5-10.1 MG/DL Urine Color YELLOW Urine Clarity CLEAR Urine pH 6.0 5-9 Urine Specific [place] 1.010 L 1.016-1.022 Urine Protein NEGATIVE NEGATIVE Urine Glucose (UA) NEGATIVE NEGATIVE Urine Ketones NEGATIVE NEGATIVE Urine Nitrite NEGATIVE NEGATIVE Urine Bilirubin NEGATIVE NEGATIVE Urine Urobilinogen 0.2 < = 1.0 MG/DL Urine Leukocyte Esterase NEGATIVE NEGATIVE Urine RBC (Auto) NEGATIVE NEGATIVE Urine RBC NONE /HPF Urine WBC NONE /HPF Urine Squamous Epithelial Cells 5-10 /HPF Urine Renal Epithelial Cells NONE /HPF Urine Crystals NONE /LPF Urine Bacteria FEW H /HPF Urine Casts NONE /LPF Urine Mucus NEGATIVE /LPF Urine Culture Indicated NO My Orders Orders - LORNA LARA MD Ed Iv/Invasive Line Start (04/10/21 13:54) Cbc With Automated Diff (04/10/21 13:54) Basic Metabolic Panel (04/10/21 13:54) Ua Culture If Indicated (04/10/21 13:54) Tramadol Tablet (Ultram Tablet) (04/10/21 14:45) Medications Given in ED Current Medications Medications Dose Ordered Sig/Kash Route Start Time Stop Time Status Last Admin Dose Admin Tramadol HCl 50 mg ONCE ONCE PO 04/10/21 14:45 04/10/21 14:46 DC 04/10/21 14:58 50 MG Vital Signs/I&O 04/10/21 13:45 Temp 35.4 Pulse 86 Resp 18 B/P (MAP) 109/53 (71) Pulse Ox 96 Capillary Refill : Departure Impression Primary Impression: Pedal edema Disposition: 01 HOME, SELF-CARE Condition: Stable Departure-Patient Inst. Decision time for Depature: 15:27 Referrals: [facility] (PCP) Primary Care Physician GAGAN TUBBS (Family) Primary Care Physician Patient Instructions: Dependent Edema (DC) Add. Discharge Instructions: Continue to wear the support stockings while you are up and moving around. Continue your daily medications as previously prescribed. Please follow-up with [facility] next week. If you develop any worsening pain in your legs with redness, increased swelling, shortness of breath or any other emergent concerns please come back to the emergency department for reevaluation. Keep your legs elevated while you are at rest. I have sent a prescription for tramadol to your [facility] pharmacy, take this up to every 6 hours as needed for increased pain with the swelling. Try to take this only as needed as it can be a habit-forming medication. Scripts Tramadol HCl (Tramadol HCl) 50 Mg Tablet 50 MG PO Q6H for Pain, #15 TAB Prov: LORNA LARA MD 04/10/21 Copy Copies To 1: ANITA STOCK KATHRYN M MD Apr 10, 2021 13:59
[2021-04-10 14:11] LABS: POTASSIUM 4.5 MMOL/L (3.6-5.0)
[2021-04-10 14:13] LABS: CALCIUM 8.9 MG/DL (8.5-10.1)
[2021-04-10 14:17] LABS: CREATININE SERUM 0.81 MG/DL (0.60-1.30)
[2021-04-10 14:38] LABS: BASOPHILS # (AUTO) 0.1 10^3/uL (0.0-0.1); BASOPHILS % (AUTO) 1 % (0-10); EOSINOPHILS # (AUTO) 0.2 10^3/uL (0.0-0.3); EOSINOPHILS % (AUTO) 2 % (0-10); HEMATOCRIT 36 % (35-52); HEMOGLOBIN 11.7 g/dL (11.5-16.0); LYMPHOCYTES # (AUTO) 2.8 10^3/uL (1.0-4.0); LYMPHOCYTES % (AUTO) 25 % (12-44); MEAN CORPUSCULAR HEMOGLOBIN 29 pg (25-34); MEAN CORPUSCULAR HGB CONC 33 g/dL (32-36); MEAN CORPUSCULAR VOLUME 88 fL (80-99); MEAN PLATELET VOLUME 9.7 fL (9.0-12.2); MONOCYTES # (AUTO) 0.8 10^3/uL (0.0-1.0); MONOCYTES % (AUTO) 7 % (0-12); NEUTROPHILS # (AUTO) 7.2 10^3/uL (1.8-7.8); NEUTROPHILS % (AUTO) 65 % (42-75); PLATELET COUNT 356 10^3/uL (130-400); WHITE BLOOD COUNT 11.2 10^3/uL (4.3-11.0)
[2021-04-10 15:01] LABS: BILIRUBIN,URINE NEGATIVE (NEGATIVE); CLARITY,URINE CLEAR; COLOR,URINE YELLOW; GLUCOSE, URINE (UA) NEGATIVE (NEGATIVE); KETONES,URINE NEGATIVE (NEGATIVE); LEUKOCYTE ESTERASE ,URINE NEGATIVE (NEGATIVE); NITRITE,URINE NEGATIVE (NEGATIVE); PROTEIN,URINE NEGATIVE (NEGATIVE)
[2021-04-10 15:12] LABS: BACTERIA,URINE FEW /HPF
[2021-04-10] MEDS ORDERED: TRAM50TA3 PO (15:29)
[2021-04-10 15:45] VITALS: BP 112/67
== END 2021-04-10 15:45 | disposition home or self-care (01) ==
LOC: EDUNIT# 13:33 → ER 13:34
DX: R60.9 Edema, unspecified (principal); I10 Essential (primary) hypertension; F41.9 Anxiety disorder, unspecified; F32.9 Major depressive disorder, single episode, unspecified; Z79.899 Other long term (current) drug therapy
CPT/HCPCS: 36415; 80048; 81000; 85025

== ENCOUNTER 2021-09-30 15:36 | Emergency (ER) | payer MEDICAID ==
[~2021-09-30] VITALS: Ht 162 cm; Wt 113.6 kg
[~2021-09-30 15:36] MED LIST changes: +TRAM50TA3 PO
[2021-09-30] MEDS ORDERED: TRAM-42 PO (16:11)
--- NOTE | 2021-09-30 16:12 | ED Upper Extremity ---
General Chief Complaint: General Problems/Pain Stated Complaint: SHOULDER PAIN, BACK PAIN Source: patient Exam Limitations: no limitations History of Present Illness Date Seen by Provider: Sep 30, 2021 Time Seen by Provider: 16:10 Initial Comments By private vehicle with ongoing left shoulder pain this began 3 weeks ago after lifting a case of water with her left arm only. She has pain with any range of motion of the left shoulder. No tingling in the fingertips. No pain in the neck. No chest pain. Again this is worsened by any movement at all of the shoulder. No fevers no chills. No direct trauma. She followed with [facility] on Monday of this week (today is ) and had x-rays done but does not know those results. She is already on Zanaflex for fibromyalgia and gabapentin for fibromyalgia. She is been using Tylenol [id number] without much relief. Onset: other Severity: severe Pain/Injury Location: left shoulder Method of Injury: other (Lifting) Modifying Factors: Worse With Movement Allergies and Home Medications Allergies Coded Allergies: No Known Drug Allergies (Unverified , 04/10/21) Patient Home Medication List Home Medication List Reviewed: Yes Amitriptyline HCl (Amitriptyline HCl) 50 Mg Tablet, 50 MG PO HS, (Reported) Entered as Reported by: MANDO BRYSON on 01/10/20 1140 Cariprazine Hydrochloride (Vraylar) 3 Mg Capsule, 3 MG PO DAILY, (Reported) Entered as Reported by: MANDO BRYSON on 01/10/20 1140 Cefdinir (Cefdinir) 300 Mg Capsule, 300 MG PO BID Prescribed by: JANESSA RINCON on 03/15/21 0329 Hydrochlorothiazide (Hydrochlorothiazide) 25 Mg Tablet, 25 MG PO DAILY, (Reported) Entered as Reported by: MANDO BRYSON on 01/10/20 1140 Hydrocodone/Acetaminophen (Hydrocodone/Acetaminophen 5 MG/325 MG TAB) 1 Each Tablet, 1 TAB PO Q4-6HR Prescribed by: CHINYERE WATERS on 01/16/20 1242 L.acidoph & Paracasei,B.lactis (Probiotic) 1 Each Capsule, 1 EACH PO DAILY, (Reported) Entered as Reported by: MANDO BRYSON on 01/10/20 1140 Lisinopril (Lisinopril) 20 Mg Tablet, 20 MG PO DAILY, (Reported) Entered as Reported by: ABHISHEK SARAVIA on 09/01/17 1726 Meloxicam (Meloxicam) 7.5 Mg Tablet, 7.5 MG PO BID, (Reported) Entered as Reported by: MANDO BRYSON on 01/10/20 1140 Tizanidine HCl (Tizanidine HCl) 4 Mg Capsule, 4 MG PO TID PRN for PAIN-MODERATE (5-7), (Reported) Entered as Reported by: MANDO BRYSON on 01/10/20 1140 Tramadol HCl (Ultram) 50 Mg Tablet, 50 MG PO Q4H Prescribed by: JANESSA RINCON on 03/15/21 0330 Tramadol HCl (Tramadol HCl) 50 Mg Tablet, 50 MG PO Q6H Prescribed by: LORNA LARA on 04/10/21 1529 Tramadol HCl (Ultram) 50 Mg Tablet, 50 MG PO Q6H PRN for PAIN-SEVERE (8-10) Prescribed by: AVEL CABRERA on 09/30/21 1611 Review of Systems Constitutional: see HPI EENTM: see HPI Respiratory: no symptoms reported Cardiovascular: no symptoms reported Genitourinary: no symptoms reported Musculoskeletal: see HPI Skin: no symptoms reported Psychiatric/Neurological: No Symptoms Reported Past Rwzffld-Sisbeh-Eucprc Hx Immunizations Up To Date Tetanus Booster (TDap): Unknown PED Vaccines UTD: Yes First/Initial COVID19 Vaccinat: 03/09/21 Second COVID19 Vaccination Wallace: 04/08/21 Seasonal Allergies Seasonal Allergies: No Past Medical History Surgery/Hospitalization HX: NEW DIURESIS MEDICATION STARTED RENCENTLY. 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 Sexually Transmitted Disease: No HIV/AIDS: No Genitourinary: No Gastrointestinal: Yes Chronic Constipation, Irritable Bowel Musculoskeletal: Yes (SCIATICA; RIGHT ANKLE SURGERY FOR TORN TENDON) Endocrine: No HEENT: Yes (GLASSES) Loss of Vision: Denies Hearing Impairment: Denies Cancer: No Psychosocial: Yes Anxiety, Depression Integumentary: No Blood Disorders: No Adverse Reaction/Blood Tranf: No (N/A) Physical Exam Vital Signs Vital Signs - First Documented 09/30/21 15:49 Pulse 112 Resp 18 B/P (MAP) 126/75 (92) Pulse Ox 96 O2 Delivery Room Air Capillary Refill : Height, Weight, BMI Height: 5'4.00" Weight: 240lbs. oz. 108.091490tb; 54.00 BMI Method:Stated General Appearance: WD/WN, no apparent distress, obese Respiratory: no respiratory distress, no accessory muscle use Gastrointestinal: normal bowel sounds, non tender Shoulder: normal inspection, limited ROM, pain, soft tissue tenderness Elbow/Forearm: normal inspection, non-tender Wrist: Yes normal inspection, Yes non-tender Hand: normal inspection, non-tender Procedures/Interventions Dental Procedures: Dental I&D Progress/Results/Core Measures Results/Orders My Orders Orders - AVEL CABRERA APRN Shoulder, Left, 3 Views (09/30/21 16:16) Ketorolac Injection (Toradol Injection) (09/30/21 16:30) Bupivacaine 0.5% Injection (Sensorcaine (09/30/21 16:30) Triamcinolone Acetonide Im (Kenalog-40) (09/30/21 16:30) Medications Given in ED Current Medications Medications Dose Ordered Sig/Kash Route Start Time Stop Time Status Last Admin Dose Admin Bupivacaine HCl 5 ml ONCE ONCE INJ 09/30/21 16:30 09/30/21 16:31 DC 09/30/21 16:54 5 ML Ketorolac Tromethamine 60 mg ONCE ONCE IM 09/30/21 16:30 09/30/21 16:31 DC 09/30/21 16:44 60 MG Triamcinolone Acetonide 20 mg ONCE ONCE IA 09/30/21 16:30 09/30/21 16:31 DC 09/30/21 16:54 20 MG Vital Signs/I&O 09/30/21 15:49 Pulse 112 Resp 18 B/P (MAP) 126/75 (92) Pulse Ox 96 O2 Delivery Room Air Departure Communication (Admissions) We did an intra-articular injection of 20 mg of triamcinolone and 5 mL of 0.5% bupivacaine without epinephrine to the left shoulder posterior approach sterile technique patient tolerated well. She did have a trigger point little more medial to this. We did a 1 mL injection of the same only used 10 mg of triamcinolone at that location and 1 mL of 0.5% bupivacaine. Impression Primary Impression: Internal derangement of shoulder Disposition: 01 HOME, SELF-CARE Condition: Stable Departure-Patient Inst. Decision time for Depature: 16:10 Referrals: [facility] (PCP) Primary Care Physician GAGAN XIE (Family) Primary Care Physician Patient Instructions: Shoulder Pain ED Add. Discharge Instructions: Follow-up with orthopedics of your choosing. Alternatively follow-up with primary care to discuss getting an MRI of the shoulder. All discharge instructions reviewed with patient and/or family. Voiced understanding. Scripts Tramadol HCl (Ultram) 50 Mg Tablet 50 MG PO Q6H PRN for PAIN-SEVERE (8-10), #10 TAB Prov: AVEL CABRERA APRN 09/30/21 AVEL CABRERA APRN Sep 30, 2021 16:12
[2021-09-30] MEDS ORDERED: TRIAMCINOLONE ACET (KENALOG-40) 40 MG/ML 1 ML VIAL IA ONE (16:30)
[2021-09-30] MEDS ORDERED: BUPIVACAINE 0.5% 30 ML (SENSORCAINE) VIAL INJ ONE (16:30)
[2021-09-30] MEDS ORDERED: KETOROLAC 60 MG/2 ML VIAL IM ONE (16:30)
--- NOTE | 2021-09-30 16:36 | Diagnostic Imaging Report ---
INDICATION: Left shoulder injury 3 weeks ago, pain TECHNIQUE: Three views of the left shoulder CORRELATION STUDY: None FINDINGS: The glenohumeral joint is maintained and unremarkable. Mild hypertrophic changes at the acromioclavicular joint. There is no evidence for acute fracture or dislocation. The visualized soft tissues are unremarkable. IMPRESSION: 1. Negative for acute bony abnormality about the left shoulder. Dictated by: Dictated on workstation # [id number]
[2021-09-30 17:26] VITALS: BP 126/75
== END 2021-09-30 17:26 | disposition home or self-care (01) ==
LOC: EDUNIT# 15:36 → ER 15:37
DX: M24.9 Joint derangement, unspecified (principal); I10 Essential (primary) hypertension; E66.9 Obesity, unspecified; F41.9 Anxiety disorder, unspecified; F32.9 Major depressive disorder, single episode, unspecified; Z68.43 Body mass index [BMI] 50.0-59.9, adult; Z79.899 Other long term (current) drug therapy
CPT/HCPCS: 73030

== ENCOUNTER → 2022-03-02 | Outpatient (CLI) | payer MEDICAID ==
[~2022-03-02] MED LIST changes: +LURA40TA2; -LURA40TA3; +RT-ALBUTEROL SULF 2.5 MG/3 ML PRE-MIX VIAL INH ONE
== END ==
LOC: RT 09:15
PROVIDERS: ATTEND Nurse Practitioner Family
DX: R05.3 Chronic cough (principal); R06.02 Shortness of breath
CPT/HCPCS: 94060; 94726; 94729